=== PATIENT | female | born 1955 | race Caucasian/White ===

== ENCOUNTER 2017-10-23 08:19 | Outpatient (CLI) | payer BC, OTHER ==
--- NOTE | 2017-10-24 13:07 | Mammography Report ---
DIGITAL SCREENING MAMMOGRAM: 10/23/2017 CLINICAL INDICATION: A 61-year-old, for screening. COMPARISON: 06/2016, 06/2013, 06/2012, 06/2011, 05/2010. TECHNIQUE: Routine CC and MLO projections were obtained of the breasts. FINDINGS: Scattered fibroglandular tissue is present within the breasts. There are no dominant masses, suspicious microcalcifications, or secondary signs of malignancy. In comparison to the previous studies, there are no significant changes. ASSESSMENT: NO MAMMOGRAPHIC EVIDENCE OF MALIGNANCY. NO SIGNIFICANT INTERVAL CHANGES. RECOMMENDATION: Screening mammography is recommended annually. BIRADS category 1 - negative. STANDARD QUALIFYING STATEMENTS: 1. This examination was reviewed with the aid of Computed-Aided Detection (CAD). 2. A negative or benign imaging report should not delay biopsy if clinically suspicious findings are present. Consider surgical consultation if warranted. More than 5% of cancers are not identified by imaging. 3. Dense breasts may obscure an underlying neoplasm. TD: 10/24/2017 13:06
== END 2017-10-23 08:20 | disposition home or self-care (01) ==
LOC: DI.S 08:19
PROVIDERS: ATTEND Physician Assistant
DX: Z12.31 Encounter for screening mammogram for malignant neoplasm of breast (principal)
CPT/HCPCS: 77067

== ENCOUNTER 2019-02-08 14:09 | Outpatient (CLI) | payer BC ==
--- NOTE | 2019-02-09 09:03 | Mammography Report ---
Reason: ENCOUNTER FOR SCREENING MAMMOGRAM FOR MALIGNANT NE Procedure Date: 02/08/2019 Accession Number: [id number] / [id number] Procedure: JAG - Screening Mammo w/Jayson CPT Code: FULL RESULT: EXAM: Screening Mammo w/Jayson DATE: 02/08/2019 2:37 PM CLINICAL HISTORY: Screening encounter. History of early menses. TECHNIQUE: (B) - Bilateral CC, laterally exaggerated CC, MLO views were obtained. COMPARISON: 01/05/2018 through 10/20/2015. PARENCHYMAL PATTERN: (D) - The breast(s) demonstrate(s) heterogeneously dense fibroglandular parenchyma. FINDINGS: There are coarse typically benign calcifications. There are no suspicious masses, calcifications, or areas of distortion. IMPRESSION: Benign findings. BI-RADS category 2. RECOMMENDATION: (ANNUAL) - Recommend routine annual screening mammography. BI-RADS CATEGORY: (2) - Benign Findings. STANDARD QUALIFYING STATEMENTS: 1. This examination was not reviewed with the aid of Computer-Aided Detection (CAD). 2. A negative or benign imaging report should not preclude biopsy if clinically suspicious findings are present. 3. Dense breasts may obscure an underlying neoplasm. 4. This examination was reviewed with the aid of 3D breast imaging (tomosynthesis).
== END 2019-02-08 14:10 | disposition home or self-care (01) ==
LOC: DI 14:09
PROVIDERS: ATTEND Internal Medicine
DX: Z12.31 Encounter for screening mammogram for malignant neoplasm of breast (principal)
CPT/HCPCS: 77063; 77067

== ENCOUNTER 2020-08-28 19:23 | Outpatient (CLI) | payer OTHER ==
[2020-08-28] MEDS ORDERED: IOVERSOL 320 100 ML VIAL IVP ONE (21:44)
== END 2020-08-28 19:24 | disposition critical access hospital (66) ==
LOC: EMS 19:23
PROVIDERS: ATTEND Surgery
DX: R55 Syncope and collapse (principal)
CPT/HCPCS: A0425; A0429; Q9967

== ENCOUNTER 2020-08-28 19:48 | Observation (INO) | payer BC, OTHER ==
--- NOTE | 2020-08-28 20:29 | ED Physician Documentation ---
PD HPI SYNCOPE - Stated complaint Stated Complaint: LOC - Chief complaint Chief Complaint: Neuro - History obtained from History obtained from: Patient, EMS - Additional information Additional information: This is a 64-year-old woman with history of hypertension on losartan, chlorthalidone, metoprolol. Also on a statin for cholesterol, baby aspirin a day and multiple supplements and vitamins. She was in her usual state of health tonight, she had not eaten much and she had had a couple of glasses of wine but admits she was not intoxicated. She was feeling fine and went into take a shower. Did not make it. Without premonition had syncope. Reportedly hit her head but does not remember any of it. Denies any current complaints. No headache, chest pain, neck pain, calf pain, pedal edema. No history of heart problems or syncope. Review of Systems Ten Systems: 10 systems reviewed and negative Constitutional: denies: Fever, Chills, Myalgias Nose: denies: Rhinorrhea / runny nose, Congestion Throat: denies: Sore throat Cardiac: denies: Chest pain / pressure, Palpitations Respiratory: denies: Dyspnea, Cough PD PAST MEDICAL HISTORY - Past Medical History Past Medical History: No - Past Surgical History Past Surgical History: No - Allergies Allergies/Adverse Reactions: Allergies Allergy/AdvReac Type Severity Reaction Status Date / Time Sulfa (Sulfonamide Allergy Unknown Verified 08/28/20 19:55 Antibiotics) - Social History Does the pt smoke?: No Smoking Status: Never smoker PD ED PE NORMAL - Vitals Vital signs reviewed: Yes - General General: Alert and oriented X 3, No acute distress - HEENT HEENT: PERRL, EOMI - Neck Neck: Supple, no meningeal sign, No bony TTP - Cardiac Cardiac: No murmur, Other (tachycardia) - Respiratory Respiratory: No respiratory distress, Clear bilaterally - Abdomen Abdomen: Soft, Non tender - Back Back: No CVA TTP, No spinal TTP - Derm Derm: Normal color, Warm and dry - Extremities Extremities: No edema, No calf tenderness / cord, Other (She has a little contusion on the dorsal mid right forearm without tenderness or limited range of motion) - Neuro Neuro: Alert and oriented X 3, No motor deficit, No sensory deficit, Normal speech - Psych Psych: Normal mood, Normal affect Results - Vitals Vitals: Vital Signs - 24 hr 0108/28/20 08/28/20 19:55 20:30 21:00 Temperature 36.7 C Heart Rate 118 H 110 H 103 H Respiratory 16 18 19 Rate Blood Pressure 119/77 100/80 119/87 H O2 Saturation 96 96 97 08/28/20 21:30 Temperature Heart Rate 120 H Respiratory 18 Rate Blood Pressure 119/87 H O2 Saturation 98 Oxygen O2 Source Room air - EKG (time done) 1952 Rate: Rate (enter#) (117) Rhythm: Sinus tachycardia [place]: Normal Intervals: Normal [place] QRS: Normal Ischemia: Q waves (inf, small) Computer interpretation: Agree with computer - Labs Labs: Laboratory Tests 08/28/20 08/28/20 08/28/20 20:40 20:40 20:40 WBC 20.3 H RBC 3.51 L Hgb 11.8 L Hct 34.0 L MCV 96.9 MCH 33.6 H MCHC 34.7 RDW 13.2 Plt Count 381 MPV 8.5 Neut # (Auto) 17.1 H Lymph # (Auto) 1.6 Amador # (Auto) 1.2 H Eos # (Auto) 0.0 Baso # (Auto) 0.1 Absolute Nucleated RBC 0.00 Nucleated RBC % 0.0 Manual Slide Review Indicated Platelet Estimate NORMAL (130-450,000) Platelet Morphology NORMAL APPEARANCE RBC Morph Micro Appear NORMAL APPEARANCE D-Dimer Sodium 123 L Potassium 3.0 L Chloride 80 L* Carbon Dioxide 25 Anion Gap 18.0 H BUN 14 Creatinine 0.8 Estimated GFR (MDRD) 73 L Glucose 117 H Calcium 9.6 Total Bilirubin 0.6 AST 107 H ALT 59 Alkaline Phosphatase 150 H Troponin I High Sens 12.3 B-Natriuretic Peptide Total Protein 7.3 Albumin 3.7 Globulin 3.6 Albumin/Globulin Ratio 1.0 Lipase 37 08/28/20 08/28/20 20:40 20:40 WBC RBC Hgb Hct MCV MCH MCHC RDW Plt Count MPV Neut # (Auto) Lymph # (Auto) Amador # (Auto) Eos # (Auto) Baso # (Auto) Absolute Nucleated RBC Nucleated RBC % Manual Slide Review Platelet Estimate Platelet Morphology RBC Morph Micro Appear D-Dimer 669.5 H Sodium Potassium Chloride Carbon Dioxide Anion Gap BUN Creatinine Estimated GFR (MDRD) Glucose Calcium Total Bilirubin AST ALT Alkaline Phosphatase Troponin I High Sens B-Natriuretic Peptide 73 Total Protein Albumin Globulin Albumin/Globulin Ratio Lipase PD MEDICAL DECISION MAKING - ED course ED course: 64-year-old woman with syncope without premonition. I also obtained further history from the by phone. He agrees there was no indication that she was going to syncopized and went down quite hard but without apparent injury but he thinks she may not have been breathing for as long as 3 to 4 minutes. No CPR was done. On arrival here the patient's is dismissive of her symptoms. She has a basically normal medical examination other than persistent tachycardia. Work- up demonstrates leukocytosis without fever or clinical focus of infection. No urinary complaints or abdominal symptoms. No headache or neck stiffness. Chest x-ray is clear. D-dimer is elevated, she has pretty significant hyponatremia. She thinks her last labs were maybe a year ago, routine labs for her blood pressure medicines. She never been told about the sodium being low or anything along those lines. This may all be from the chlorthalidone, but given the profundity Of the electrolyte abnormalities probably deserves inpatient management. Again the patient was dismissive but at least agreed to stay for a CT angiogram of the chest to evaluate for the elevated D-dimer. No large PE on CT, pending final read. Spoke with Dr. Herrera for observation at 10:25 PM. Departure - Departure Disposition: ED Place in Observation Clinical Impression: Hyponatremia Syncope Qualifiers: Syncope type: unspecified Qualified Code(s): R55 - Syncope and collapse Leukocytosis Qualifiers: Leukocytosis type: unspecified Qualified Code(s): D72.829 - Elevated white blood cell count, unspecified Condition: Fair
[2020-08-28 20:47] LABS: BASOPHILS # (AUTO) 0.1 10^3/uL (0.0-0.1); BASOPHILS % (AUTO) 0.5 %; HGB - HEMOGLOBIN 11.8 g/dL (12.0-16.0); MEAN CORPUSCULAR HEMOGLOBIN 33.6 pg (27.0-31.0); MEAN CORPUSCULAR HGB CONC 34.7 g/dL (32.0-36.0); MEAN CORPUSCULAR VOLUME 96.9 fL (81.0-99.0); RED BLOOD COUNT 3.51 10^6/uL (4.20-5.40)
[2020-08-28 20:50] LABS: LYMPHOCYTES # (AUTO) 1.6 10^3/uL (1.5-3.5); LYMPHOCYTES % (AUTO) 7.8 %; MEAN PLATELET VOLUME 8.5 fL (7.9-10.8); MONOCYTES # (AUTO) 1.2 10^3/uL (0.0-1.0); NEUTROPHILS # (AUTO) 17.1 10^3/uL (1.5-6.6); NEUTROPHILS % (AUTO) 84.4 %; PLT - PLATELET COUNT 381 10^3/uL (130-450); RED CELL DISTRIBUTION WIDTH 13.2 % (12.0-15.0); WHITE BLOOD COUNT 20.3 x10^3/uL (4.8-10.8)
[2020-08-28 21:02] LABS: ALBUMIN 3.7 g/dL (3.2-5.5); BILIRUBIN,TOTAL 0.6 mg/dL (0.2-1.0); CALCIUM 9.6 mg/dL (8.5-10.3); CREATININE 0.8 mg/dL (0.4-1.0); TOTAL PROTEIN 7.3 g/dL (6.7-8.2)
[2020-08-28 21:11] LABS: PLATELET ESTIMATE, MANUAL NORMAL (130-450,000) (NORMAL); PLATELET MORPHOLOGY NORMAL APPEARANCE (NORMAL); RBC MORPHOLOGY (MULTIPLE) NORMAL APPEARANCE (NORMAL)
--- NOTE | 2020-08-28 21:21 | XRAY Report ---
PROCEDURE: Chest 1 View X-Ray INDICATIONS: Chest Pain TECHNIQUE: One view of the chest was acquired. COMPARISON: 07/22/2016. FINDINGS: Surgical changes and devices: None. Lungs and pleura: No pleural effusions or pneumothorax. Lungs are clear. Mediastinum: Mediastinal contours appear normal. Heart size is normal. Bones and chest wall: No suspicious bony lesions. Overlying soft tissues appear unremarkable. IMPRESSION: 1. No acute cardiopulmonary disease. Reviewed by: Willis Worthington MD on 08/28/2020 9:20 PM [facility] Approved by: Willis Worthington MD on 08/28/2020 9:20 PM [facility] Station ID: [id number]
[2020-08-28] MEDS ORDERED: SODIUM CHLORIDE 0.9% 1,000 ML IV STA (21:26)
[2020-08-28] MEDS ORDERED: POTASSIUM CHLOR 10 MEQ/100 ML 10 MEQ/100 ML BAG IV STA (21:27)
[2020-08-28] MEDS ORDERED: IOVERSOL 320 100 ML VIAL IVP ONE (22:13)
[2020-08-28] MEDS ORDERED: SODIUM CHLORIDE FLUSH 0.9% 10 ML SYRINGE IVP PRN (22:24)
--- NOTE | 2020-08-28 22:33 | HISTORY & PHYSICAL EXAMINATION ---
Chief Complaint - Chief Complaint Chief Complaint: syncope History of Present Illness - Admitted From Admitted From:: [facility] ED - History Obtained From Records Reviewed: yes History obtained from: patient - History of Present Illness HPI Comment/Other: Patient is a 64-year-old female with history of hypertension, hyperlipidemia, GERD and anemia who presented to the ED after a syncopal episode this evening. She was getting ready to go take a shower when she passed out. She is not certain what transpired during the event. She complains of right shoulder pain and has some bruising on her right forearm. She denied feeling dizzy prior to the episode and she denies any previous occurrence. She also denies any other cardiac history other than her high blood pressure. In the ED she was found to be tachycardic with a heart rate ranging between 10 5-1 20. She also had a white count of 20. Her sodium level was 123 and chloride of 80. She reports that she has not really had any significant oral intake today because of upset stomach. Her orthostatics were positive. As a result of her presentation she was admitted for further work-up. At bedside she is resting comfortably she denies chest pain, dyspnea, abdominal pain, nausea, vomiting, fever or chills. 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 - Family & Social History Family History Comment/Other: Patient denied any significant family history Social History Notes: She lives with her spouse. She does not smoke or use recreational substances. She drinks about 2 glasses of wine daily. - POLST Patient has POLST: No POLST Status: Full Code Meds/Allgy - Allergies Allergies/Adverse Reactions: Allergies Allergy/AdvReac Type Severity Reaction Status Date / Time Sulfa (Sulfonamide Allergy Unknown Verified 08/28/20 19:55 Antibiotics) Review of Systems - Constitutional Constitutional: denies: Fatigue, Fever, Chills, Weakness - Eyes Eyes: denies: Pain, Dipolpia - Ears, Nose & Throat Ears, Nose & Throat: denies: Ear pain, Sore throat, Hoarseness - Cardiovascular Cariovascular: reports: Syncope. denies: Irregular heart rate, Palpitations, Chest pain, Edema, Lightheadedness, Exertional dyspnea, Decr. exercise tolerance - Respiratory Respiratory: denies: Cough, Sputum production, Wheezing, Snoring, SOB at rest, SOB with exertion - Gastrointestinal Gastrointestinal: reports: Reflux/heartburn. denies: Abdominal pain, Abdominal distention, Constipation, Diarrhea, Nausea, Vomiting - Genitourinary Genitourinary: denies: Dysuria, Frequency, Urgency, Hematuria - Musculoskeletal Musculoskeletal: denies: Muscle pain, Back pain, Muscle aches, Stiffness - Integumentary Integumentary: denies: Rash, Pruritis, Lesions, Dryness - Neurological Neurological: denies: General weakness, Focal weakness, Headache, Dizziness - Psychiatric Psychiatric: denies: Depression, Anxiety - Endocrine Endocrine: denies: Polyuria, Polydypsia - Hematologic/Lymphatic Hematologic/Lymphatic: reports: Anemia, Bruising. denies: Petechiae Prior Level of Functionality: She is independent of activities of daily living Exam - Vital Signs Vital Signs: Vital Signs x48h Temp Pulse Resp BP Pulse Ox 08/28/20 21:30 120 H 18 119/87 H 98 08/28/20 21:00 103 H 19 119/87 H 97 08/28/20 20:30 110 H 18 100/80 96 08/28/20 19:55 36.7 C 118 H 16 119/77 96 - Physical Exam General Appearance: positive: No acute distress, Alert, Anxious Eyes Bilateral: positive: PERRL, EOMI ENT: positive: Dry mucous membranes Neck: positive: No JVD, Trachea midline Respiratory: positive: Chest non-tender, No respiratory distress, Breath sounds nml. negative: Wheezes, Rales, Rhonchi Cardiovascular: positive: No murmur, Tachycardia Abdomen: positive: Non-tender, No organomegaly, Nml bowel sounds, No distention. negative: Guarding, Rebound Back: positive: Nml inspection Skin: positive: Color nml, No rash, Warm, Dry Extremities: positive: Non-tender, Full ROM, Nml appearance, No pedal edema Neurologic/Psychiatric: positive: Oriented x3, Mood/affect nml Conclusion/Plan - Problem List (1) Syncope Conclusion/Plan: Suspect secondary to dehydration. Patient's orthostatics were positive. Patient is receiving IV hydration with normal saline at 150 mils per hour. 2D echo ordered for the morning. We will monitor patient on telemetry. Also hold patient's medications which consist of metoprolol, chlorthalidone and losartan. Qualifiers: Syncope type: unspecified Qualified Code(s): R55 - Syncope and collapse (2) Hyponatremia Conclusion/Plan: Likely secondary to dehydration. Patient receiving IV hydration with normal saline at 150 mils per hour. Will recheck labs in the a.m. (3) Leukocytosis Conclusion/Plan: Reactive versus infectious. We will monitor and repeat labs in the morning. If patient spikes a fever, will obtain blood cultures. UA and chest x-ray were unremarkable. There is no sign of erythema on examination of skin. Qualifiers: Leukocytosis type: unspecified Qualified Code(s): D72.829 - Elevated white blood cell count, unspecified (4) Tachycardia Conclusion/Plan: Sinus. Likely secondary to dehydration. Expect improvement with IV hydration. CT scan was negative for PE. We will check TSH level. (5) Hyperlipidemia Conclusion/Plan: Will resume patient's medication once verified. (6) GERD (gastroesophageal reflux disease) Conclusion/Plan: Protonix 40 mg p.o. q.d.AC ordered. We will also order Tums as needed. - Lab Results Fish Bones: 08/28/20 20:40 08/28/20 20:40 Core Measures - Anticipated LOS I expect patient to be DC'd or transferred within 96 hours.: Yes - DVT/VTE - Prophylaxis VTE/DVT Device ordered at admit?: Yes VTE/DVT Prophylaxis med ordered at admit?: Yes
[2020-08-28 23:07] LABS: BILIRUBIN,URINE NEGATIVE (NEGATIVE); CLARITY,URINE CLEAR (CLEAR); GLUCOSE, URINE (UA) NEGATIVE (NEGATIVE); KETONES,URINE (UA) NEGATIVE (NEGATIVE); LEUKOCYTE ESTERASE, URINE NEGATIVE (NEGATIVE); NITRITE,URINE NEGATIVE (NEGATIVE); OCCULT BLOOD,URINE NEGATIVE (NEGATIVE); PROTEIN,URINE NEGATIVE (NEGATIVE); UROBILINOGEN,URINE 0.2 (NORMAL) E.U./dL (NORMAL)
[2020-08-28 23:50] LABS: C. PNEUMONIAE- RESP PCR PANEL NOT DETECTED
[2020-08-29] MEDS: ACETAMINOPHEN 325 MG TABLET PO PRN ×3 (00:01→11:15)
[2020-08-29] MEDS ORDERED: CALCIUM CARBONATE CHEW 500 MG TABLET PO PRN (01:03)
[2020-08-29] MEDS: SODIUM CHLORIDE FLUSH 0.9% 10 ML SYRINGE IVP SCH ×2 (01:50→08:16)
[2020-08-29] MEDS: SODIUM CHLORIDE 0.9% 1,000 ML IV SCH ×3 (04:38→11:15)
[2020-08-29 04:46] VITALS: BP 129/77
[2020-08-29 05:49] LABS: BASOPHILS % (AUTO) 0.3 %; EOSINOPHILS % (AUTO) 0.2 %; HGB - HEMOGLOBIN 10.6 g/dL (12.0-16.0); LYMPHOCYTES # (AUTO) 1.6 10^3/uL (1.5-3.5); LYMPHOCYTES % (AUTO) 10.3 %; MEAN CORPUSCULAR HEMOGLOBIN 33.9 pg (27.0-31.0); MEAN CORPUSCULAR HGB CONC 34.9 g/dL (32.0-36.0); MEAN CORPUSCULAR VOLUME 97.1 fL (81.0-99.0); MEAN PLATELET VOLUME 8.4 fL (7.9-10.8); MONOCYTES # (AUTO) 1.3 10^3/uL (0.0-1.0); MONOCYTES % (AUTO) 8.4 %; NEUTROPHILS # (AUTO) 12.2 10^3/uL (1.5-6.6); NEUTROPHILS % (AUTO) 80.1 %; PLT - PLATELET COUNT 288 10^3/uL (130-450); RED BLOOD COUNT 3.13 10^6/uL (4.20-5.40); RED CELL DISTRIBUTION WIDTH 13.2 % (12.0-15.0); WHITE BLOOD COUNT 15.2 x10^3/uL (4.8-10.8)
[2020-08-29 05:58] LABS: CALCIUM 9.2 mg/dL (8.5-10.3); CREATININE 0.9 mg/dL (0.4-1.0)
[2020-08-29] MEDS ORDERED: PANTOPRAZOLE 40 MG TABLET PO SCH (07:00)
--- NOTE | 2020-08-29 08:43 | CT Report ---
PROCEDURE: ANGIO CHEST WITH INDICATIONS: syncope, high dimer CONTRAST: IV CONTRAST: Optiray 320 ml: 80 PO CONTRAST: *NO PO CONTRAST TECHNIQUE: After the administration of intravenous contrast, 2 mm thick sections acquired from the pulmonary api prudencio to the posterior costophrenic angles. 3-dimensional maximum intensity projection (MIP) coronal a nd sagittal reformats were then acquired through the thorax. For radiation dose reduction, the follow ing was used: automated exposure control, adjustment of mA and/or kV according to patient size. COMPARISON: Chest x-ray one view, 08/28/2020. FINDINGS: Image quality: Respiratory motion artifact are present. Pulmonary arteries: Pulmonary arteries are normal in size, and demonstrate no intraluminal filling d efects to suggest central pulmonary embolism. Lungs and pleura: There are respiratory emotions. Lungs are clear. No pleural effusions or pneumoth orax. Central and peripheral airways are patent. Mediastinum: Heart size is normal, without pericardial effusion. No mediastinal or hilar adenopathy . Thoracic aorta is normal in caliber and enhancement. Esophagus is normal in caliber. There is a s mall hiatal hernia. Mild concentric thickening at the GE junction. Bones and chest wall: No suspicious bony lesions. Ribs and thoracic spine appear intact throughout. There is a 7 mm thyroid low density nodule in the left thyroid lobe. No axillary or supraclavicula r adenopathy. Abdomen: Hepatic steatosis. Visualized upper abdominal solid organs appear normal in the early arter ial phase of enhancement. IMPRESSION: 1. No evidence for central pulmonary embolism. 2. Small hiatal hernia and consistent thickening of GE junction. If clinically indicated, esophagram may be obtained for further evaluation. 3. A 7 mm low-density nodule in the left thyroid lobe. Recommend thyroid ultrasound for follow-up monika luation. 4. Hepatic steatosis. No significant discrepancy with the preliminary interpretation. Reviewed by: Ruth Heath MD on 08/29/2020 8:42 AM PST Approved by: Ruth Heath MD on 08/29/2020 8:42 AM PST Station ID: [id number]
[2020-08-29] MEDS ORDERED: LORazepam 2 MG/ML VIAL IVP PRN (11:44)
--- NOTE | 2020-08-29 14:49 | Discharge Plan ---
Discharge Plan Problem Reviewed?: Yes Disposition: Home, Self Care Condition: Fair Diet: Regular Activity Restrictions: Activity as Tolerated Shower Restrictions: No Driving Restrictions: No Instruction Topics: Syncope Tx Prevent Health Concerns: You came to the hospital after passing out at home. You had a normal day. No change in your health status and had gotten up to walk to the shower. You had no warning. And you suddenly went unconscious. We worry about heart attack, stroke, heart rhythm problems, low blood pressure, anemia or infection when someone does this. We did blood test to make sure you were not having a heart attack and you did not have an infection. You were not having a stroke. We did an ultrasound of your heart and the muscle, and valves of your heart were working completely normally. The only thing we found was electrolyte disturbance with a low sodium and low potassium. Sometimes that can induce a h eart rhythm problem. While you were here, our telemetry monitoring did not show any heart rhythm problems. We also checked for a blood clot to the lungs. CAT scan of the chest with a dye study looking at the arteries of your lungs were completely normal. We found an incidental finding of a small thyroid nodule in the left part of your thyroid. And a little bit of fatty liver. Plan of Treatment: 1. See your primary care provider Vanessa Borden in the next 2 weeks. 2. Stop your chlorthalidone since it can cause electrolyte abnormalities 3. If you continue to have an episode of passing out, Dr. Borden may need to do something called an event monitor or Holter monitor to look at your heart rhythm analysis. Care Goals: Did not pass out again. And not scary her poor . Assessment: Patient understands care goals. was in the room and we discussed these goals. She will follow through with seeing her PCP. No Smoking: If you smoke, Please STOP! Call for help. Follow-up with: VANESSA BORDEN MD [Physician No Access] -
--- NOTE | 2020-08-29 14:58 | DISCHARGE SUMMARY ---
"Discharge Summary Admit Date: 08/28/20 Discharge Date: 08/29/20 Discharging Provider: Ambreen Aldana MD Primary Care Provider: JENNIFER Hoskins Code Status: Attempt Resuscitation Condition at Discharge: Fair Discharge Disposition: 01 Home, Self Care - DIAGNOSES Discharge Diagnoses with Status of Each Condition: 1. Syncope 2. Electrolyte disorder with hyponatremia and hypokalemia 3. Orthostatic blood pressure, resolved 4. Sinus tachycardia 5. Leukocytosis unknown etiology 6. Hyperlipidemia 7. Gastroesophageal reflux disease 8. Abnormal CT scan of GE junction 9. Thyroid nodule 10. Hypertension - HPI History of Present Illness: Patient is a 64-year-old female with history of hypertension, hyperlipidemia, GERD and anemia who presented to the ED after a syncopal episode this evening. She was getting ready to go take a shower when she passed out. She is not certain what transpired during the event. She is very clear in stating that there was no antecedent warning. She did not have chest pain, palpitations, diaphoresis. She did not feel faint. She had no change in her medications. Kamar shoemaker checks her blood pressure on a daily basis and is in the 120s to 130 systolic. She complains of right shoulder pain and has some bruising on her right forearm. She denied feeling dizzy prior to the episode and she denies any previous occurrence. She also denies any other cardiac history other than her high blood pressure. In the ED she was found to be tachycardic with a heart rate ranging between 10 5-1 20. She also had a white count of 20. Her sodium level was 123 and chloride of 80. She reports that she has not really had any significant oral intake today because of upset stomach. She had some toast and some cheese. She had a couple of bites here and there but that was it. She cannot say why her stomach was upset. Her orthostatics were positive. As a result of her presentation she was admitted for further work-up. At bedside she is resting comfortably she denies chest pain, dyspnea, abdominal pain, nausea, vomiting, fever or chills. 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 - CONSULTS | PROCEDURES Procedures: 1. Chest x-ray without acute cardiopulmonary process. 2. D-dimer was over [address] pulmonary angiogram showed no evidence of pulmonary embolism. Small hiatal hernia and consistent thickening of the GE junction. An esophagram is clinically indicated for this finding. 3. A 7 mm low-density nodule in the left thyroid. 4. Hepatic steatosis. 5. Echocardiogram shows no significant chamber, valve, heart size abnormalities. However this is a preliminary finding. Final report needs to be reviewed by PCP. 6. Telemetry strips all showed normal sinus rhythm, occasional sinus tachycard ia. - HOSPITAL COURSE Hospital Course: She was placed in observation and on telemetry. On telemetry there were no arrhythmias other than mild sinus tachycardia. Orthostatic blood pressures were done after initial treatment was completed. She received fluid boluses in the emergency room and supplementation for her potassium. Blood pressure on the day of discharge supine was 139/84. Sitting 149/88. Standing 142/87. We think that her electrolyte abnormality is from her chlorthalidone and have recommended discontinuing the chlorthalidone. She will need outpatient follow-up for her blood pressure and medication adjustment. We would also recommend a repeat BMP. Echocardiogram, CT pulmonary angiogram, troponins, thyroid were all normal. If she continues to have syncope, would recommend an event monitor or Holter monitor. Her syncope appeared to be without any antecedent warning. We did note that she had an elevated white cell count on admission of 20.3. It was 15.2 by the time she was discharged. She does not have any review of systems positive for B symptoms. We think she may have simple demargination. We would asked that she have a repeat CBC with her PCP to make sure this is resolved. She also has mild anemia. By the time of discharge sodium went from 123->129. Potassium went from 3.0->3.5. Chloride was 80 and went to 89. Mild hyperglycemia at 118 fasting. At discharge temperature was 36.9. Pulse was 118 with last recorded pulse. However when I checked her pulse, she was comfortable, talking to her , and was in the 80s. Blood pressure was 139/84. Respirations 16 and 99% on room air. She is a well-nourished well-developed pleasant female who is 5 feet 5 inches tall weighs 70 kg. Speech is lucid, coherent. Neck is supple. Lungs are clear to auscultation and percussion and she does not have increased respiratory effort. PMI is normally placed with a regular rate and rhythm. Abdomen is soft, nontender, normal bowel sounds. Extremities without edema. She is discharged in stable condition. Instructions are to: 1. See PCP in follow-up in the next 1 to 2 weeks 2. Stop chlorthalidone and get blood pressure checked. 3. Check BMP and CBC to make sure K, Na and WBC have normalized. 4. Get Holter or event monitor if she has another episode of syncope - ALLERGIES Allergies/Adverse Reactions: Allergies Allergy/AdvReac Type Severity Reaction Status Date / Time Sulfa (Sulfonamide Allergy Unknown Verified 08/28/20 19:55 Antibiotics) - MEDICATIONS Home Medications: Ambulatory Orders Medication Instructions Recorded Confirmed Losartan Potassium 25 mg PO DAILY 08/29/20 08/29/20 Metoprolol Succinate [Toprol Xl] 100 mg PO DAILY 08/29/20 08/29/20 Rosuvastatin Calcium [Crestor] 10 mg PO DAILY 08/29/20 08/29/20 - LABS Result Diagrams: 08/29/20 05:32 08/29/20 05:32"
== END 2020-08-29 15:50 | disposition home or self-care (01) ==
LOC: EDUNIT# → ED 19:48 → MS2 22:24
PROVIDERS: ADMIT Internal Medicine; ATTEND Specialist
DX: R55 Syncope and collapse (principal); E87.1 Hypo-osmolality and hyponatremia; E87.6 Hypokalemia; E86.0 Dehydration; D72.829 Elevated white blood cell count, unspecified; E04.1 Nontoxic single thyroid nodule; I10 Essential (primary) hypertension; R00.0 Tachycardia, unspecified; R73.9 Hyperglycemia, unspecified; R79.89 Other specified abnormal findings of blood chemistry; S50.11XA Contusion of right forearm, initial encounter; W18.30XA Fall on same level, unspecified, initial encounter; Y92.009 Unspecified place in unspecified non-institutional (private) residence as the place of occurrence of the external cause; E78.5 Hyperlipidemia, unspecified; K44.9 Diaphragmatic hernia without obstruction or gangrene; K76.0 Fatty (change of) liver, not elsewhere classified; D64.9 Anemia, unspecified; K21.9 Gastro-esophageal reflux disease without esophagitis; R94.8 Abnormal results of function studies of other organs and systems; Z79.82 Long term (current) use of aspirin; Z79.899 Other long term (current) drug therapy
CPT/HCPCS: 0202U; 36415; 71045; 71275; 80048; 80053; 81003; 83690; 83880; 84443; 84484; 85025; 85379; 93005; 93306; 96361; 96365; 99285; A9270; G0378; Q9967; 81001; 87086

== ENCOUNTER 2021-02-13 15:53 | Inpatient (IN) | payer OTHER ==
--- NOTE | 2021-02-13 16:40 | ED Physician Documentation ---
History of Present Illness - Stated complaint Stated Complaint: CONFUSION,UNSTEADY,SLURRED SPEACH - Chief complaint Chief Complaint: General - Additonal information Additional information: 65-year-old female who has a history of hypertension, hyperlipidemia, GERD and anemia, comes to the emergency department for evaluation of worsening confusion. She reports that she retired from her job of 36 years in September 2020. Since then she feels that she is having difficulty completing tasks at home. She feels that she has been confused and that is making her worry. Her reports that last night she had difficulty filling out a check and doing simple math. pt is reporting to me that her feet have been hurting a lot more than normal, which she attributes to her gout She does have a history of alcohol abuse and typically will drink a bottle of wine a night. She denies any falls or trauma. Chart review shows that she has previous diagnoses that include hyponatremia as well as tachycardia. Review of Systems Constitutional: denies: Fever, Chills Eyes: denies: Loss of vision Ears: reports: Reviewed and negative Nose: reports: Reviewed and negative Throat: reports: Reviewed and negative Cardiac: reports: Reviewed and negative Respiratory: reports: Reviewed and negative GI: reports: Reviewed and negative : reports: Reviewed and negative Skin: reports: Reviewed and negative Musculoskeletal: reports: Reviewed and negative Neurologic: reports: Confused. 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 HEENT: Tonsil/Adenoidectomy - Present Medications Home Medications: Ambulatory Orders Medication Instructions Recorded Confirmed Losartan Potassium 25 mg PO DAILY 08/29/20 02/13/21 Metoprolol Succinate [Toprol Xl] 100 mg PO DAILY 08/29/20 02/13/21 Rosuvastatin Calcium [Crestor] 10 mg PO DAILY 08/29/20 02/13/21 Aspirin [Aspirin EC] 81 mg PO DAILY 02/13/21 02/13/21 Ferrous Sulfate 325 mg PO DAILY 02/13/21 02/13/21 Indomethacin [Indocin] 50 mg PO DAILY PRN 02/13/21 02/13/21 Multivitamin [Theragran] 1 each PO DAILY 02/13/21 02/13/21 Rabeprazole Sodium [Aciphex] 20 mg PO DAILY 02/13/21 02/13/21 - Allergies Allergies/Adverse Reactions: Allergies Allergy/AdvReac Type Severity Reaction Status Date / Time Sulfa (Sulfonamide Allergy Unknown Verified 08/28/20 19:55 Antibiotics) - Social History Does the pt smoke?: No Smoking Status: Former smoker - POLST Patient has POLST: No POLST Status: Full Code PD ED PE EXPANDED - General General: Alert, No acute distress, Well developed/nourished - Cardiac Cardiac: Tachy, Radial strong equal, Cap refill < 2 sec, Prolonged cap refill. No: Murmur Present - Respiratory Respiratory: Clear to ausultation chirag. No: Distress, Labored - Abdomen Abdomen: Normal Bowel sounds, Hepatomegaly. No: Distended, Tender to palpation - Derm Derm: Normal color, Warm and dry. No: Jaundiced - Extremities Extremities: Normal. No: Deformity, Tenderness - Neuro Neuro: Alert and Oriented X 3, CNII-XII intact, Normal gait, Normal finger nose, Normal speech, Other (NIHSS of 0) - GCS Eye Opening: Spontaneous Motor: Obeys Commands Verbal: Oriented Total: 15 Results - Vitals Vitals: Vital Signs - 24 hr 02/13/21 15:59 Temperature 36.4 C L Heart Rate 119 H Respiratory 18 Rate Blood Pressure 118/85 H O2 Saturation 97 Oxygen O2 Source Room air - EKG (time done) 1640 Rate: Rate (enter#) (105) Rhythm: Sinus tachycardia Sullivan: Normal QRS: Poor R wave progression Ischemia: Q waves (inferior) Compare to prior EKG: Unchanged from prior EKG Computer interpretation: Agree with computer - Labs Labs: Laboratory Tests 02/13/21 02/13/21 02/13/21 16:45 16:45 16:52 WBC 17.0 H RBC 3.14 L Hgb 11.3 L Hct 32.1 L MCV 102.2 H MCH 36.0 H MCHC 35.2 RDW 12.2 Plt Count 327 MPV 10.0 Neut # (Auto) 13.6 H Lymph # (Auto) 1.7 Bureau # (Auto) 1.5 H Eos # (Auto) 0.1 Baso # (Auto) 0.1 Absolute Nucleated RBC 0.00 Nucleated RBC % 0.0 Sodium 128 L Potassium 3.3 L Chloride 84 L Carbon Dioxide 34 H Anion Gap 10.0 BUN 28 H Creatinine 2.5 H Estimated GFR (MDRD) 19 L Glucose 113 H Calcium 16.2 H* Phosphorus 2.6 Magnesium 1.4 L Total Bilirubin 1.1 H AST 74 H ALT 58 Alkaline Phosphatase 203 H Troponin I High Sens 31.6 H* Total Protein 7.6 Albumin 3.9 Globulin 3.7 Albumin/Globulin Ratio 1.1 Lipase 320 H Urine Color Urine Clarity Urine pH Ur Specific Fleming Urine Protein Urine Glucose (UA) Urine Ketones Urine Occult Blood Urine Nitrite Urine Bilirubin Urine Urobilinogen Ur Leukocyte Esterase Ur Microscopic Review Urine Culture Comments Urine Opiates Screen Ur Oxycodone Screen Urine Methadone Screen Ur Propoxyphene Screen Ur Barbiturates Screen Ur Tricyclics Screen Ur Phencyclidine Scrn Ur Amphetamine Screen U Methamphetamines Scrn U Benzodiazepines Scrn Urine Cocaine Screen U Cannabinoids Screen 02/13/21 18:00 WBC RBC Hgb Hct MCV MCH MCHC RDW Plt Count MPV Neut # (Auto) Lymph # (Auto) Bureau # (Auto) Eos # (Auto) Baso # (Auto) Absolute Nucleated RBC Nucleated RBC % Sodium Potassium Chloride Carbon Dioxide Anion Gap BUN Creatinine Estimated GFR (MDRD) Glucose Calcium Phosphorus Magnesium Total Bilirubin AST ALT Alkaline Phosphatase Troponin I High Sens Total Protein Albumin Globulin Albumin/Globulin Ratio Lipase Urine Color YELLOW Urine Clarity CLEAR Urine pH 6.0 Ur Specific Fleming 1.015 Urine Protein NEGATIVE Urine Glucose (UA) NEGATIVE Urine Ketones NEGATIVE Urine Occult Blood NEGATIVE Urine Nitrite NEGATIVE Urine Bilirubin NEGATIVE Urine Urobilinogen 0.2 (NORMAL) Ur Leukocyte Esterase NEGATIVE Ur Microscopic Review NOT INDICATED Urine Culture Comments NOT INDICATED Urine Opiates Screen NEGATIVE Ur Oxycodone Screen NEGATIVE Urine Methadone Screen NEGATIVE Ur Propoxyphene Screen NEGATIVE Ur Barbiturates Screen NEGATIVE Ur Tricyclics Screen NEGATIVE Ur Phencyclidine Scrn NEGATIVE Ur Amphetamine Screen NEGATIVE U Methamphetamines Scrn NEGATIVE U Benzodiazepines Scrn NEGATIVE Urine Cocaine Screen NEGATIVE U Cannabinoids Screen NEGATIVE - Rads (name of study) ABD pelvis wo Radiology: Final report received (Minimal appearance of stranding surrounding the pancreatic head. Early pancreatitis cannot be excluded. Appendix is normal. T11 compression deformity of indeterminate age) ct head Radiology: Final report received (No acute findings) CXR Radiology: Final report received (No acute cardiopulmonary process), EMP read indepedently PD MEDICAL DECISION MAKING - ED course Complexity details: reviewed results, re-evaluated patient, d/w patient, d/w family, d/w independent marketing consultant (Kristopher) ED course: 65-year-old female is brought to the emergency department for evaluation of increasing bouts of confusion lack of mental clarity and increasing pain in her lower feet. This has been an intermittent problem since September but worse over the last few weeks. Screening labs show a moderate leukocytosis as well as a fairly significant hypercalcemia of 16. Her lipase is also noted to be mildly elevated at 320. An ionized calcium and a PTH are pending. CT of the abdomen does show some mild stranding around the pancreatic head. This could be early pancreatitis which given her history of alcohol abuse is entirely plausible. The hypercalcemia can also be seen in settings of excessive calcium intake and the patient does eat a lot of Tums as she reports chronic gastritis. Pt is noted to have mild ADE with elevated BUN/Cr. Likely pre-renal. Though pt had reported an unsteady gait and slured speech her gait was nromal on my exam, NIHSS was 0. Ct head without any acute focal findings. I have initially ordered 1 liter of IVF Normal saline as well as 20 mg of lasix for the hypercalcemia. Plan for admission discussed with pt and her This patient was discussed with day hospitalist Dr. Summers who agrees to admit the patient for further evaluation and treatment of her hypercalcemia Departure - Departure Disposition: 66 [facility] DC/Xfer Clinical Impression: Hypercalcemia, Confusion, Alcohol abuse, ADE (acute kidney injury) Condition: Stable Record reviewed to determine appropriate education?: Yes Discharge Date/Time: 02/13/21 19:25
[2021-02-13 16:55] LABS: BASOPHILS # (AUTO) 0.1 10^3/uL (0.0-0.1); BASOPHILS % (AUTO) 0.5 %; EOSINOPHILS # (AUTO) 0.1 10^3/uL (0.0-0.7); EOSINOPHILS % (AUTO) 0.6 %; HCT - HEMATOCRIT 32.1 % (37.0-47.0); HGB - HEMOGLOBIN 11.3 g/dL (12.0-16.0); LYMPHOCYTES # (AUTO) 1.7 10^3/uL (1.5-3.5); LYMPHOCYTES % (AUTO) 9.8 %; MEAN CORPUSCULAR HGB CONC 35.2 g/dL (32.0-36.0); MEAN CORPUSCULAR VOLUME 102.2 fL (81.0-99.0); MONOCYTES # (AUTO) 1.5 10^3/uL (0.0-1.0); MONOCYTES % (AUTO) 8.8 %; NEUTROPHILS # (AUTO) 13.6 10^3/uL (1.5-6.6); NEUTROPHILS % (AUTO) 79.7 %; PLT - PLATELET COUNT 327 10^3/uL (130-450); RED BLOOD COUNT 3.14 10^6/uL (4.20-5.40); RED CELL DISTRIBUTION WIDTH 12.2 % (12.0-15.0)
[2021-02-13 17:14] LABS: ALBUMIN 3.9 g/dL (3.2-5.5); ALBUMIN/GLOBULIN RATIO 1.1 (1.0-2.2); BILIRUBIN,TOTAL 1.1 mg/dL (0.2-1.0); CREATININE 2.5 mg/dL (0.4-1.0); MAGNESIUM 1.4 mg/dL (1.7-2.8); PHOSPHORUS 2.6 mg/dL (2.5-4.6); POTASSIUM 3.3 mmol/L (3.5-5.0); TOTAL PROTEIN 7.6 g/dL (6.7-8.2)
[2021-02-13 17:16] LABS: CALCIUM 16.2 mg/dL (8.5-10.3)
[2021-02-13] MEDS ORDERED: SODIUM CHLORIDE 0.9% 1,000 ML IV STA (17:25)
[2021-02-13] MEDS ORDERED: FUROSEMIDE 20 MG/2 ML VIAL IVP STA (17:31)
--- NOTE | 2021-02-13 18:05 | CT Report ---
PROCEDURE: HEAD WO INDICATIONS: confusion TECHNIQUE: Noncontrast 4.5 mm thick angled axial sections acquired from the foramen magnum to the vertex. For r adiation dose reduction, the following was used: automated exposure control, adjustment of mA and/or kV according to patient size. COMPARISON: None. FINDINGS: Image quality: Excellent. CSF spaces: Basal cisterns are patent. No extra-axial fluid collections. Ventricles are normal in size and shape. Brain: No midline shift. No intracranial masses or hemorrhage. Bernstein-white matter interface is norm al. Skull and face: Calvarium and visualized facial bones are intact, without suspicious lesions. Sinuses: Visualized sinuses and mastoids are clear. IMPRESSION: 1. No acute intracranial process. Reviewed by: Debbie Brink MD on 02/13/2021 6:03 PM PDT Approved by: Debbie Brink MD on 02/13/2021 6:03 PM PDT Station ID: [id number]
[2021-02-13 18:08] LABS: MUDS CUTOFF CONCENTRATIONS CUTOFF CONC BELOW:
--- NOTE | 2021-02-13 18:09 | CT Report ---
PROCEDURE: Abdomen/Pelvis WO INDICATIONS: elevated calcium TECHNIQUE: Noncontrast 5 mm thick sections acquired from the diaphragms to the symphysis. 5 mm coronal and sagi ttal reformats were then performed. For radiation dose reduction, the following was used: automated exposure control, adjustment of mA and/or kV according to patient size. COMPARISON: CT chest 08/28/2020 FINDINGS: Image quality: Excellent. ABDOMEN: Lung bases: Lung bases are clear. Heart size is normal. Trace anterior pericardial effusion measur ing 6 mm. Solid organs: Liver is markedly enlarged measuring 21.6 cm with diffuse fatty infiltration. The sple en is normal in size. Gallbladder is unremarkable Pancreas demonstrates questionable appearance of stranding adjacent to the pancreatic head. No adrenal nodules. Kidneys are normal in size, without h ydronephrosis or nephrolithiasis. Peritoneum and bowel: Unenhanced bowel loops demonstrate normal wall thickness and caliber. No free fluid or air. Appendix is normal. Nodes and vessels: No retroperitoneal or mesenteric adenopathy by size criteria. Aorta and inferior vena cava are normal in caliber. Miscellaneous: No ventral hernias. PELVIS: Genitourinary: Bladder wall thickness is normal. Miscellaneous: No inguinal hernias or adenopathy. Bones: No suspicious bony lesions. Compression deformity at T11. No priors are available for compari son. IMPRESSION: 1. Minimal appearance of stranding surrounding the pancreatic head. Early pancreatitis cannot be excl uded. 2. Appendix is normal. 3. T11 compression deformity of indeterminate age. Reviewed by: Debbie Brink MD on 02/13/2021 6:07 PM PDT Approved by: Debbie Brink MD on 02/13/2021 6:07 PM PDT Station ID: [id number]
[2021-02-13 18:10] LABS: BILIRUBIN,URINE NEGATIVE (NEGATIVE); GLUCOSE, URINE (UA) NEGATIVE (NEGATIVE); KETONES,URINE (UA) NEGATIVE (NEGATIVE); LEUKOCYTE ESTERASE, URINE NEGATIVE (NEGATIVE); NITRITE,URINE NEGATIVE (NEGATIVE); OCCULT BLOOD,URINE NEGATIVE (NEGATIVE); PROTEIN,URINE NEGATIVE (NEGATIVE); UROBILINOGEN,URINE 0.2 (NORMAL) E.U./dL (NORMAL)
[2021-02-13 18:14] LABS: CLARITY,URINE CLEAR (CLEAR)
[2021-02-13 18:20] LABS: COCAINE SCREEN URINE NEGATIVE (NEGATIVE); METHAMPHETAMINES SCREEN, URINE NEGATIVE (NEGATIVE); OPIATE SCREEN, URINE NEGATIVE (NEGATIVE); THC CANNABINOID SCREEN, URINE NEGATIVE (NEGATIVE)
[2021-02-13 18:21] LABS: AMPHETAMINE SCREEN,URINE NEGATIVE (NEGATIVE); BARBITURATE SCREEN,UR NEGATIVE (NEGATIVE); BENZODIAZEPINES SCREEN, URINE NEGATIVE (NEGATIVE); METHADONE SCREEN, URINE NEGATIVE (NEGATIVE); OXYCODONE SCREEN, URINE NEGATIVE (NEGATIVE); PROPOXYPHENE SCREEN, URINE NEGATIVE (NEGATIVE); TRICYCLIC ANTIDEPRESSANT,URINE NEGATIVE (NEGATIVE)
[2021-02-13] MEDS ORDERED: ACETAMINOPHEN 325 MG TABLET PO PRN (18:28)
[2021-02-13] MEDS ORDERED: HYDROcod/ACETAM 5/325 MG TABLET PO PRN (18:28)
[2021-02-13] MEDS ORDERED: ONDANSETRON ODT 4 MG TABLET TL PRN (18:28)
[2021-02-13] MEDS ORDERED: SODIUM CHLORIDE FLUSH 0.9% 10 ML SYRINGE IVP PRN (18:28)
[2021-02-13] MEDS ORDERED: PROCHLORPERAZINE 10 MG/2 ML VIAL IVP PRN (18:28)
--- NOTE | 2021-02-13 18:35 | XRAY Report ---
PROCEDURE: Chest 1 View X-Ray INDICATIONS: chest pain TECHNIQUE: One view of the chest was acquired. COMPARISON: 08/28/2020 FINDINGS: Surgical changes and devices: None. Lungs and pleura: No pleural effusions or pneumothorax. Lungs are clear. Mediastinum: Mediastinal contours appear normal. Heart size is normal. Bones and chest wall: No suspicious bony lesions. Overlying soft tissues appear unremarkable. IMPRESSION: No acute cardiopulmonary findings Reviewed by: Richard Hickman MD on 02/13/2021 5:33 PM AKDT Approved by: Richard Hickman MD on 02/13/2021 5:33 PM AKDT Station ID: [id number]
[2021-02-13] MEDS ORDERED: SODIUM CHLORIDE 0.9% 1,000 ML IV SCH (19:00)
--- NOTE | 2021-02-13 19:29 | HISTORY & PHYSICAL EXAMINATION ---
Chief Complaint - Chief Complaint Chief Complaint: Increasing confusion. History of Present Illness - Admitted From Admitted From:: Home - History Obtained From Records Reviewed: Yes History obtained from: Patient, Spouse, Daytime Hospitalist, EMR - History of Present Illness HPI Comment/Other: This is a 65-year-old female with past medical history significant for hypertension, GERD, iron deficiency anemia who presents today due to increasing confusion and difficulty walking at home. She states she has felt this way for the past few days and her , Paramjit, tells me that has been going on for about the past week. The patient retired in August of this year and the patient has been noted since September that she has been less active. He thought that she may have just been depressed given she was recently retired. He noticed that over the past week she has had increasing confusion and has become very unsteady when ambulating. She has been trying to hold onto [place] which is quite unusual for her. He noticed that last night she was trying to write a check and she had difficulty writing and the numbers were incorrect. Due to wha t happened yesterday evening, he brought her in for evaluation today. The patient does complain of the difficulty ambulating and confusion. She knows she is at the hospital and she knows the year, month. She denies any chest pain, difficulty breathing, nausea, vomiting. She reports no abdominal pain, dysuria, urgency, hematuria. She does have chronic dyspepsia and has been taking Tums for quite a few years now. She states she normally takes about 5 to 6 tablets a day but at times can take up to 10 tablets in a day. She is no longer taking chlorthalidone after it was discontinued in August when she was admitted for syncope from orthostasis and hyponatremia. She does report drinking a bottle and a half of wine a day for quite a few years now. She denies any history of alcohol withdrawal. She reports her last drink was Friday night. She denies any history of malignancy or family history. She reports having a colonoscopy and endoscopy a few years ago which did not reveal any mass. In the emergency department, she was noted to be afebrile. She was hypertensive with systolic in the 140s. She was also tachycardic with a heart rate in the 100s. She was not tachypneic and was saturating well on room air. Labs were significant for a white count of 17,000. Her sodium was 128, potassium 3.3, chloride 84, bicarbonate 34, BUN 28, and creatinine 2.5. Her calcium was 16.2. Total bilirubin was 1.1, AST 74, alkaline phosphatase 203. Her urinalysis was unremarkable. She underwent a CT of the abdomen and pelvis which was suggestive of possible mild pancreatitis and hepatomegaly. CT of the head was unremarkable. Given the above findings, medicine was consulted for admission. I did discuss goals of care with the patient and she would like to be a full code. History - Past Medical History Cardiovascular: reports: Hypertension, High cholesterol Respiratory: reports: Asthma Neuro: reports: None Endocrine/Autoimmune: reports: None GI: reports: GERD : reports: Nocturia Musculoskeletal: reports: Gout, Chronic back pain Derm: reports: None MRSA Hx?: No - Past Surgical History General: reports: Colonoscopy, EGD /ANIMAL NUTRITION CONSULTANT: reports: Hysterectomy HEENT: reports: Tonsil/Adenoidectomy - Family & Social History Family History Comment/Other: She reports no significant family history. Denies a family history of cardiac disease, cancer. Living arrangement: At home Living Situation: With spouse/s.o. Social History Notes: She lives at home with her , Paramjit. 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 She denies any smoking but does admit to drinking a bottle and a half of wine a day for quite a few years now. Denies any illicit drug use. - POLST Patient has POLST: No POLST Status: Full Code Meds/Allgy - Home Medications Home Medications: Ambulatory Orders Medication Instructions Recorded Confirmed Losartan Potassium 25 mg PO DAILY 08/29/20 02/13/21 Metoprolol Succinate [Toprol Xl] 100 mg PO DAILY 08/29/20 02/13/21 Rosuvastatin Calcium [Crestor] 10 mg PO DAILY 08/29/20 02/13/21 Aspirin [Aspirin EC] 81 mg PO DAILY 02/13/21 02/13/21 Ferrous Sulfate 325 mg PO DAILY 02/13/21 02/13/21 Indomethacin [Indocin] 50 mg PO DAILY PRN 02/13/21 02/13/21 Multivitamin [Theragran] 1 each PO DAILY 02/13/21 02/13/21 Rabeprazole Sodium [Aciphex] 20 mg PO DAILY 02/13/21 02/13/21 - Allergies Allergies/Adverse Reactions: Allergies Allergy/AdvReac Type Severity Reaction Status Date / Time Sulfa (Sulfonamide Allergy Unknown Verified 08/28/20 19:55 Antibiotics) Review of Systems - Constitutional Constitutional: reports: Fatigue. denies: Fever, Chills, Poor appetite - Ears, Nose & Throat Ears, Nose & Throat: reports: Postnasal drainage. denies: Nasal congestion - Cardiovascular Cariovascular: denies: Chest pain, Edema, Exertional dyspnea, Decr. exercise tolerance - Respiratory Respiratory: reports: Cough. denies: SOB at rest, SOB with exertion - Gastrointestinal Gastrointestinal: reports: Constipation, Change in bowel habits, Reflux/heartburn. denies: Abdominal pain, Diarrhea, Bloody stools, Nausea, Vomiting - Genitourinary Genitourinary: denies: Dysuria, Frequency, Urgency, Hematuria - Musculoskeletal Musculoskeletal: denies: Back pain, Limited range of motion, Muscle weakness - Integumentary Integumentary: denies: Rash - Neurological Neurological: reports: General weakness, Numbness. denies: Focal weakness - Endocrine Endocrine: denies: Polyuria, Polydypsia - Hematologic/Lymphatic Hematologic/Lymphatic: reports: Anemia. denies: Bleeding tendencies - All Other Systems All Other Systems: reports: Reviewed and negative Prior Level of Functionality: She is independent with her ADL's. Exam - Vital Signs Reviewed Vital Signs: Yes Vital Signs: Vital Signs x48h Temp Pulse Resp BP Pulse Ox 02/13/21 18:49 104 H 24 146/87 H 98 02/13/21 15:59 36.4 C L 119 H 18 118/85 H 97 - Physical Exam General Appearance: positive: No acute distress, Alert Eyes Bilateral: positive: Normal inspection, Conjunctivae nml ENT: positive: Dry mucous membranes. negative: No signs of dehydration Neck: positive: Nml inspection Respiratory: positive: No respiratory distress. negative: Wheezes, Rales Cardiovascular: positive: No murmur, Tachycardia. negative: Irregularly irregular, Bradycardia, Systolic murmur Abdomen: positive: Nml bowel sounds, Tenderness (Mild epigastric tenderness). negative: Non-tender, Guarding, Rebound Skin: positive: Warm, Dry Extremities: positive: No pedal edema Neurologic/Psychiatric: positive: Other (5 out of 5 motor strength in all 4 extremities. No focal deficits.). negative: Disoriented to person, Disoriented to place, Disoriented to time Conclusion/Plan - Problem List (1) Hypercalcemia Conclusion/Plan: She presents with a calcium greater than 16. I suspect this is likely due to the excess use of calcium carbonate for her GERD. 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 We will treat her with normal saline at 200 mL an hour. We will consider IV diuresis if she shows evidence of hypervolemia. Unfortunately we do not have calcitonin available. We will hold off on zoledronic acid given her acute kidney injury and no obvious evidence of malignancy. We will check PTH, PTH related protein, vitamin D. Daily labs. If her calcium remains significantly elevated and she does not respond to IV fluids then we would need to consider dialysis. (2) Confusion Conclusion/Plan: This likely secondary to her hypercalcemia. CT the head was unremarkable. There is currently no obvious evidence of infection. Given her history of alcohol use and mildly elevated LFTs, will check an ammonia level although low suspicion for hepatic encephalopathy. We will start her on IV fluids and treat her underlying hypercalcemia. I am hopeful that her mentation will improve as her calcium decreases. (3) Milk alkali syndrome Conclusion/Plan: There is concern for milk-alkali syndrome given the hypercalcemia, acute kidney injury and elevated bicarbonate. She has been taking a large amount of calcium carbonate at home. We will check a venous blood gas to evaluate her pH. We will hydrate her with normal saline. We will hold her home calcium carbonate. Daily labs. (4) Acute kidney injury Conclusion/Plan: This is likely prerenal injury from dehydration. Although nephrocalcinosis is on the differential, this is felt to be less likely at this time especially given the unremarkable imaging. Her creatinine is elevated at 2.5 and her baseline is 0.8. We will hydrate her with normal saline and hold her home losartan. Daily labs. (5) Pancreatitis Conclusion/Plan: There may be mild pancreatitis given her lipase is elevated greater than [address] was concerning for possible pancreatic stranding. She also has mild epigastric tenderness. This may be secondary to her alcohol use or the hypercalcemia. We will hydrate her and start her on a diet as tolerated. Trend Lipase and check amylase. (6) Hyponatremia Conclusion/Plan: Suspect this is likely hypovolemic hyponatremia. Her sodium is currently 128 and has been low earlier this year in the low 120s. We will hydrate her with normal saline and recheck her sodium in the morning. Will not obtain a urine osmolality as this is a send out lab. Will consider urine sodium if there is no improvement. (7) Leukocytosis Conclusion/Plan: Suspect this is likely reactive. There is no evidence of infection at this time. We will hold off on antibiotics and continue to monitor. Qualifiers: Leukocytosis type: unspecified Qualified Code(s): D72.829 - Elevated white blood cell count, unspecified (8) Alcohol abuse Conclusion/Plan: She does report significant alcohol use this year since long-term. Her LFTs are mildly elevated and imaging did suggest diffuse fatty infiltration with an enlarged liver. We will check an ammonia level given her confusion although suspect this is related to her hypercalcemia. We will monitor for evidence of withdrawal. Place her on thiamine and folate. (9) GERD (gastroesophageal reflux disease) Conclusion/Plan: She has been on calcium carbonate which is likely contributing to the milk- alkali syndrome and her hypercalcemia. We will hold all calcium carbonate at this time. We will place her on Protonix daily. If she has significant symptoms during his hospitalization then we can consider a general surgery consult for endoscopy. (10) Hypertension Conclusion/Plan: We will resume her home losartan once her acute kidney reinjury resolves. We will continue her home Toprol. - Lab Results Lab results reviewed: Yes Fish Bones: 02/14/21 04:42 02/14/21 04:42 - Diagnostic Imaging Results Diagnostic Imaging Results: positive: Final report reviewed - EKG Results EKG Interpreted Independently: Yes EKG Comparison: Unchanged from prior EKG EKG Findings: G showed sinus tachycardia without any obvious ST segment changes. Her QTC is 423. Core Measures - Anticipated LOS I expect patient to be DC'd or transferred within 96 hours.: Yes - Issues Hospital Issues and Management Plan: 65-year-old female presents with progressive confusion found to have hypercalcemia and acute kidney injury. This is likely secondary to excessive calcium carbonate intake for her GERD. We will admit her for IV fluids and monitor her labs. - DVT/VTE - Prophylaxis VTE/DVT Device ordered at admit?: Yes VTE/DVT Prophylaxis med ordered at admit?: Yes
[2021-02-13] MEDS ORDERED: POTASSIUM CHLORIDE 20 MEQ TABLET PO ONE (19:44)
[2021-02-13] MEDS ORDERED: MAGNESIUM SULFATE 2 GRAM 2 GM/50 ML BAG IV ONE (19:45)
[2021-02-13 19:59] LABS: VBG PCO2 49.4 mmHg (41-51); VBG PH 7.456 (7.31-7.41)
[2021-02-13 20:00] LABS: VBG BASE EXCESS 8.8 mmol/L (-2 - +2); VBG OXYGEN SATURATION 66.9 % (60-80); VBG PO2 35.7 mmHg (25-47); VBG TOTAL CO2 35.5 mmol/L (24-29)
[2021-02-13] MEDS ORDERED: MAGNESIUM OXIDE 400 MG TABLET PO ONE (20:00)
[2021-02-13] MEDS: SODIUM CHLORIDE 0.9% 1,000 ML IV SCH ×2 (20:19→23:19)
[2021-02-13] MEDS: THIAMINE 100 MG TABLET PO SCH (20:28)
[2021-02-13] MEDS: HEPARIN 5,000 UNIT/ML VIAL SUBQ SCH (22:09)
[2021-02-13 22:10] LABS: B. PARAPERTUSSIS- RESP PCR PAN NOT DETECTED; B. PERTUSSIS- RESP PCR PANEL NOT DETECTED; C. PNEUMONIAE- RESP PCR PANEL NOT DETECTED; CORONAVIRUS 229E-RESP PCR NOT DETECTED; CORONAVIRUS HKU1-RESP PCR NOT DETECTED; CORONAVIRUS NL63-RESP PCR NOT DETECTED; CORONAVIRUS OC43-RESP PCR NOT DETECTED; HUMAN METAPNEUMOVIRUS NOT DETECTED; INFLUENZA A- RESP PCR PANEL NOT DETECTED; INFLUENZA B - RESP PCR PANEL NOT DETECTED; M. PNEUMONIAE- RESP PCR PANEL NOT DETECTED; PARAINFLUENZA VIRUS 1 NOT DETECTED; PARAINFLUENZA VIRUS 2 NOT DETECTED; PARAINFLUENZA VIRUS 3 NOT DETECTED; PARAINFLUENZA VIRUS 4 NOT DETECTED; RHINOVIRUS/ENTEROVIRUS NOT DETECTED; RSV- RESP PCR PANEL NOT DETECTED; SARS-CoV-2 -RESP PCR PANEL NOT DETECTED
[2021-02-13] MEDS: SODIUM CHLORIDE FLUSH 0.9% 10 ML SYRINGE IVP SCH (23:45)
[2021-02-14] MEDS: SODIUM CHLORIDE 0.9% 1,000 ML IV SCH ×4 (04:30→21:10)
[2021-02-14 05:45] LABS: BASOPHILS # (AUTO) 0.1 10^3/uL (0.0-0.1); BASOPHILS % (AUTO) 0.8 %; EOSINOPHILS # (AUTO) 0.3 10^3/uL (0.0-0.7); HCT - HEMATOCRIT 28.5 % (37.0-47.0); HGB - HEMOGLOBIN 9.8 g/dL (12.0-16.0); LYMPHOCYTES % (AUTO) 14.6 %; MEAN CORPUSCULAR HGB CONC 34.4 g/dL (32.0-36.0); MEAN CORPUSCULAR VOLUME 104.8 fL (81.0-99.0); MEAN PLATELET VOLUME 10.9 fL (7.9-10.8); MONOCYTES # (AUTO) 1.4 10^3/uL (0.0-1.0); MONOCYTES % (AUTO) 9.9 %; NEUTROPHILS # (AUTO) 9.8 10^3/uL (1.5-6.6); NEUTROPHILS % (AUTO) 71.9 %; PLT - PLATELET COUNT 297 10^3/uL (130-450); RED BLOOD COUNT 2.72 10^6/uL (4.20-5.40); RED CELL DISTRIBUTION WIDTH 12.1 % (12.0-15.0); WHITE BLOOD COUNT 13.7 x10^3/uL (4.8-10.8)
[2021-02-14 05:59] LABS: ALBUMIN 3.4 g/dL (3.2-5.5); BILIRUBIN,DIRECT 0.3 mg/dL (0.1-0.5); BILIRUBIN,TOTAL 0.8 mg/dL (0.2-1.0); CREATININE 2.1 mg/dL (0.4-1.0); PHOSPHORUS 1.9 mg/dL (2.5-4.6); POTASSIUM 3.3 mmol/L (3.5-5.0); TOTAL PROTEIN 6.6 g/dL (6.7-8.2)
[2021-02-14 06:07] LABS: CALCIUM 13.7 mg/dL (8.5-10.3)
[2021-02-14] MEDS: PANTOPRAZOLE 40 MG TABLET PO SCH (06:51)
[2021-02-14] MEDS ORDERED: POTASSIUM CHLORIDE 20 MEQ TABLET PO ONE (06:55)
[2021-02-14] MEDS ORDERED: POTASSIUM PHOSPHATE 15 MMOL in SODIUM CHLORIDE 0.9% 250 ML IV ONE (08:00)
[2021-02-14] MEDS: FOLIC ACID 1 MG TABLET PO SCH (08:10)
[2021-02-14] MEDS: THIAMINE 100 MG TABLET PO SCH (08:10)
[2021-02-14] MEDS: SODIUM CHLORIDE FLUSH 0.9% 10 ML SYRINGE IVP SCH ×2 (08:11→16:32)
[2021-02-14] MEDS: HEPARIN 5,000 UNIT/ML VIAL SUBQ SCH ×2 (08:30→21:16)
[2021-02-14] MEDS ORDERED: ENOXAPARIN 40 MG/0.4 ML SYRINGE SUBQ SCH (09:00)
--- NOTE | 2021-02-14 11:37 | PROVIDER PROGRESS NOTE ---
Subjective - Prog Note Date Prog Note Date: 02/14/21 Prog Note Time: 11:36 - Subjective Pt reports feeling: Improved (Is feeling mildly improved. Fogginess is a little bit better, but not back to heydi.) Current Medications - Current Medications Current Medications: Current Medications Generic Name Dose Route Start Last Admin Trade Name Belen PRN Reason Stop Dose Admin Folic Acid 1 mg 02/14/21 09:00 02/14/21 08:10 Folic Acid 1 Mg Tablet PO 1 mg DAILY ALESSIA Administration Heparin Sodium (Porcine) 5,000 unit 02/13/21 21:00 02/14/21 08:30 Heparin 5,000 Unit/Ml Vial SUBQ 5,000 unit BID ALESSIA Administration Sodium Chloride 1,000 mls @ 200 mls/hr 02/13/21 19:31 02/14/21 09:57 Normal Saline 0.9% IV 150 mls/hr .Q5H ALESSIA Administration Potassium Phosphate 15 mmol/ 255 mls @ 42.5 mls/hr 02/14/21 08:00 02/14/21 08:32 Sodium Chloride IV 02/14/21 13:59 42.5 mls/hr ONCE ONE Administration Pantoprazole Sodium 40 mg 02/14/21 07:00 02/14/21 06:51 Pantoprazole 40 Mg Tablet PO 40 mg QDAC ALESSIA Administration Sodium Chloride 10 ml 02/14/21 01:00 02/14/21 08:11 Sodium Chloride Flush 0.9% 10 Ml Syringe IVP Not Given 0100,0900,1700 ALESSIA Thiamine HCl 100 mg 02/13/21 19:45 02/14/21 08:10 Thiamine 100 Mg Tablet PO 100 mg DAILY ALESSIA Administration Objective - Vital Signs/Intake & Output Reviewed Vital Signs: Yes Vital Signs: Vital Signs x48h Temp Pulse Resp BP Pulse Ox 02/14/21 08:58 36.8 C 78 18 142/85 H 97 02/14/21 04:10 36.6 C 82 17 141/78 H 99 Intake & Output: Intake & Output 02/11/21 02/12/21 02/13/21 02/14/21 23:59 23:59 23:59 23:59 Intake Total 1555.647 7810.000 Output Total 250 Balance 0977.412 5333.000 - Objective General Appearance: positive: No acute distress, Alert, Mild distress Eyes Bilateral: positive: Normal inspection, PERRL, EOMI ENT: positive: ENT inspection nml Neck: positive: Nml inspection, Thyroid nml, No JVD Respiratory: positive: Chest non-tender, No respiratory distress, Breath sounds nml Cardiovascular: positive: Regular rate & rhythm, No murmur, No gallop Abdomen: positive: Non-tender, No organomegaly, Nml bowel sounds, No distention Back: positive: Nml inspection Skin: positive: Color nml, No rash, Warm, Dry Extremities: positive: Non-tender, Full ROM, Nml appearance Neurologic/Psychiatric: positive: Oriented x3. negative: Mood/affect nml (Somewhat flat affect), Disoriented to person, Disoriented to place, Disoriented to time, Weakness, Facial droop, Slurred/abnml speech, Depressed mood/affect - Lab Results Fish Bones: 02/14/21 04:42 02/14/21 04:42 Other Labs: Lab Results x24hrs 02/14/21 02/14/21 02/13/21 Range/Units 04:42 04:42 20:55 WBC 13.7 H (4.8-10.8) x10^3/uL RBC 2.72 L (4.20-5.40) 10^6/uL Hgb 9.8 L (12.0-16.0) g/dL Hct 28.5 L (37.0-47.0) % MCV 104.8 H (81.0-99.0) fL MCH 36.0 H (27.0-31.0) pg MCHC 34.4 (32.0-36.0) g/dL RDW 12.1 (12.0-15.0) % Plt Count 297 (130-450) 10^3/uL MPV 10.9 H (7.9-10.8) fL Neut # (Auto) 9.8 H (1.5-6.6) 10^3/uL Lymph # (Auto) 2.0 (1.5-3.5) 10^3/uL [place] # (Auto) 1.4 H (0.0-1.0) 10^3/uL Eos # (Auto) 0.3 (0.0-0.7) 10^3/uL Baso # (Auto) 0.1 (0.0-0.1) 10^3/uL Absolute Nucleated RBC 0.00 x10^3/uL Nucleated RBC % 0.0 /100WBC VBG pH (7.31-7.41) VBG pCO2 (41-51) mmHg VBG pO2 (25-47) mmHg VBG HCO3 (23-28) mmol/L VBG Total CO2 (24-29) mmol/L VBG O2 Saturation (60-80) % VBG Base Excess (-2 - +2) mmol/L Sodium 132 L (135-145) mmol/L Potassium 3.3 L (3.5-5.0) mmol/L Chloride 91 L (101-111) mmol/L Carbon Dioxide 30 (21-32) mmol/L Anion Gap 11.0 (6-13) BUN 24 H (6-20) mg/dL Creatinine 2.1 H (0.4-1.0) mg/dL Estimated GFR (MDRD) 24 L (>89) Glucose 99 (70-100) mg/dL Calcium 13.7 H* (8.5-10.3) mg/dL Phosphorus 1.9 L (2.5-4.6) mg/dL Magnesium 2.0 (1.7-2.8) mg/dL Total Bilirubin 0.8 (0.2-1.0) mg/dL Direct Bilirubin 0.3 (0.1-0.5) mg/dL AST 67 H (10-42) IU/L ALT 50 (10-60) IU/L Alkaline Phosphatase 172 H (42-121) IU/L Ammonia (7-35) umol/L Troponin I High Sens (2.3-14.8) ng/L Total Protein 6.6 L (6.7-8.2) g/dL Albumin 3.4 (3.2-5.5) g/dL Globulin 3.2 (2.1-4.2) g/dL Albumin/Globulin Ratio (1.0-2.2) Amylase 99 (28-100) U/L Lipase 273 H (22-51) U/L PTH Intact (12-88) pg/mL Urine Color Urine Clarity (CLEAR) Urine pH (5.0-7.5) PH Ur Specific [place] (1.002-1.030) Urine Protein (NEGATIVE) mg/dL Urine Glucose (UA) (NEGATIVE) mg/dL Urine Ketones (NEGATIVE) mg/dL Urine Occult Blood (NEGATIVE) Urine Nitrite (NEGATIVE) Urine Bilirubin (NEGATIVE) Urine Urobilinogen (NORMAL) E.U./dL Ur Leukocyte Esterase (NEGATIVE) Ur Microscopic Review Urine Culture Comments Nasal Adenovirus (PCR) NOT DETECTED Nasal B. parapertussis DNA (PCR) NOT DETECTED Nasal Coronavir 229E PCR NOT DETECTED Nasal Coronavir HKU1 PCR NOT DETECTED Nasal Coronavir NL63 PCR NOT DETECTED Nasal Coronavir OC43 PCR NOT DETECTED Nasal Enterovir/Rhinovir PCR NOT DETECTED Nasal Influenza B PCR NOT DETECTED Nasal Influenza A PCR NOT DETECTED Nasal Parainfluen 1 PCR NOT DETECTED Nasal Parainfluen 2 PCR NOT DETECTED Nasal Parainfluen 3 PCR NOT DETECTED Nasal Parainfluen 4 PCR NOT DETECTED Nasal RSV (PCR) NOT DETECTED Nasal B.pertussis DNA PCR NOT DETECTED Nasal C.pneumoniae (PCR) NOT DETECTED Jose Roberto Human Metapneumo PCR NOT DETECTED Nasal M.pneumoniae (PCR) NOT DETECTED Nasal SARS-CoV-2 (PCR) NOT DETECTED Urine Opiates Screen (NEGATIVE) Ur Oxycodone Screen (NEGATIVE) Urine Methadone Screen (NEGATIVE) Ur Propoxyphene Screen (NEGATIVE) Ur Barbiturates Screen (NEGATIVE) Ur Tricyclics Screen (NEGATIVE) Ur Phencyclidine Scrn (NEGATIVE) Ur Amphetamine Screen (NEGATIVE) U Methamphetamines Scrn (NEGATIVE) U Benzodiazepines Scrn (NEGATIVE) Urine Cocaine Screen (NEGATIVE) U Cannabinoids Screen (NEGATIVE) 02/13/21 02/13/21 02/13/21 Range/Units 19:50 19:50 19:50 WBC (4.8-10.8) x10^3/uL RBC (4.20-5.40) 10^6/uL Hgb (12.0-16.0) g/dL Hct (37.0-47.0) % MCV (81.0-99.0) fL MCH (27.0-31.0) pg MCHC (32.0-36.0) g/dL RDW (12.0-15.0) % Plt Count (130-450) 10^3/uL MPV (7.9-10.8) fL Neut # (Auto) (1.5-6.6) 10^3/uL Lymph # (Auto) (1.5-3.5) 10^3/uL [place] # (Auto) (0.0-1.0) 10^3/uL Eos # (Auto) (0.0-0.7) 10^3/uL Baso # (Auto) (0.0-0.1) 10^3/uL Absolute Nucleated RBC x10^3/uL Nucleated RBC % /100WBC VBG pH 7.456 H (7.31-7.41) VBG pCO2 49.4 (41-51) mmHg VBG pO2 35.7 (25-47) mmHg VBG HCO3 34.0 H (23-28) mmol/L VBG Total CO2 35.5 H (24-29) mmol/L VBG O2 Saturation 66.9 (60-80) % VBG Base Excess 8.8 H (-2 - +2) mmol/L Sodium (135-145) mmol/L Potassium (3.5-5.0) mmol/L Chloride (101-111) mmol/L Carbon Dioxide (21-32) mmol/L Anion Gap (6-13) BUN (6-20) mg/dL Creatinine (0.4-1.0) mg/dL Estimated GFR (MDRD) (>89) Glucose (70-100) mg/dL Calcium (8.5-10.3) mg/dL Phosphorus (2.5-4.6) mg/dL Magnesium (1.7-2.8) mg/dL Total Bilirubin (0.2-1.0) mg/dL Direct Bilirubin (0.1-0.5) mg/dL AST (10-42) IU/L ALT (10-60) IU/L Alkaline Phosphatase (42-121) IU/L Ammonia 27.9 (7-35) umol/L Troponin I High Sens (2.3-14.8) ng/L Total Protein (6.7-8.2) g/dL Albumin (3.2-5.5) g/dL Globulin (2.1-4.2) g/dL Albumin/Globulin Ratio (1.0-2.2) Amylase (28-100) U/L Lipase (22-51) U/L PTH Intact 7 L (12-88) pg/mL Urine Color Urine Clarity (CLEAR) Urine pH (5.0-7.5) PH Ur Specific [place] (1.002-1.030) Urine Protein (NEGATIVE) mg/dL Urine Glucose (UA) (NEGATIVE) mg/dL Urine Ketones (NEGATIVE) mg/dL Urine Occult Blood (NEGATIVE) Urine Nitrite (NEGATIVE) Urine Bilirubin (NEGATIVE) Urine Urobilinogen (NORMAL) E.U./dL Ur Leukocyte Esterase (NEGATIVE) Ur Microscopic Review Urine Culture Comments Nasal Adenovirus (PCR) Nasal B. parapertussis DNA (PCR) Nasal Coronavir 229E PCR Nasal Coronavir HKU1 PCR Nasal Coronavir NL63 PCR Nasal Coronavir OC43 PCR Nasal Enterovir/Rhinovir PCR Nasal Influenza B PCR Nasal Influenza A PCR Nasal Parainfluen 1 PCR Nasal Parainfluen 2 PCR Nasal Parainfluen 3 PCR Nasal Parainfluen 4 PCR Nasal RSV (PCR) Nasal B.pertussis DNA PCR Nasal C.pneumoniae (PCR) Jose Roberto Human Metapneumo PCR Nasal M.pneumoniae (PCR) Nasal SARS-CoV-2 (PCR) Urine Opiates Screen (NEGATIVE) Ur Oxycodone Screen (NEGATIVE) Urine Methadone Screen (NEGATIVE) Ur Propoxyphene Screen (NEGATIVE) Ur Barbiturates Screen (NEGATIVE) Ur Tricyclics Screen (NEGATIVE) Ur Phencyclidine Scrn (NEGATIVE) Ur Amphetamine Screen (NEGATIVE) U Methamphetamines Scrn (NEGATIVE) U Benzodiazepines Scrn (NEGATIVE) Urine Cocaine Screen (NEGATIVE) U Cannabinoids Screen (NEGATIVE) 02/13/21 02/13/21 02/13/21 Range/Units 18:00 16:52 16:45 WBC (4.8-10.8) x10^3/uL RBC (4.20-5.40) 10^6/uL Hgb (12.0-16.0) g/dL Hct (37.0-47.0) % MCV (81.0-99.0) fL MCH (27.0-31.0) pg MCHC (32.0-36.0) g/dL RDW (12.0-15.0) % Plt Count (130-450) 10^3/uL MPV (7.9-10.8) fL Neut # (Auto) (1.5-6.6) 10^3/uL Lymph # (Auto) (1.5-3.5) 10^3/uL [place] # (Auto) (0.0-1.0) 10^3/uL Eos # (Auto) (0.0-0.7) 10^3/uL Baso # (Auto) (0.0-0.1) 10^3/uL Absolute Nucleated RBC x10^3/uL Nucleated RBC % /100WBC VBG pH (7.31-7.41) VBG pCO2 (41-51) mmHg VBG pO2 (25-47) mmHg VBG HCO3 (23-28) mmol/L VBG Total CO2 (24-29) mmol/L VBG O2 Saturation (60-80) % VBG Base Excess (-2 - +2) mmol/L Sodium 128 L (135-145) mmol/L Potassium 3.3 L (3.5-5.0) mmol/L Chloride 84 L (101-111) mmol/L Carbon Dioxide 34 H (21-32) mmol/L Anion Gap 10.0 (6-13) BUN 28 H (6-20) mg/dL Creatinine 2.5 H (0.4-1.0) mg/dL Estimated GFR (MDRD) 19 L (>89) Glucose 113 H (70-100) mg/dL Calcium 16.2 H* (8.5-10.3) mg/dL Phosphorus 2.6 (2.5-4.6) mg/dL Magnesium 1.4 L (1.7-2.8) mg/dL Total Bilirubin 1.1 H (0.2-1.0) mg/dL Direct Bilirubin (0.1-0.5) mg/dL AST 74 H (10-42) IU/L ALT 58 (10-60) IU/L Alkaline Phosphatase 203 H (42-121) IU/L Ammonia (7-35) umol/L Troponin I High Sens 31.6 H* (2.3-14.8) ng/L Total Protein 7.6 (6.7-8.2) g/dL Albumin 3.9 (3.2-5.5) g/dL Globulin 3.7 (2.1-4.2) g/dL Albumin/Globulin Ratio 1.1 (1.0-2.2) Amylase (28-100) U/L Lipase 320 H (22-51) U/L PTH Intact (12-88) pg/mL Urine Color YELLOW Urine Clarity CLEAR (CLEAR) Urine pH 6.0 (5.0-7.5) PH Ur Specific [place] 1.015 (1.002-1.030) Urine Protein NEGATIVE (NEGATIVE) mg/dL Urine Glucose (UA) NEGATIVE (NEGATIVE) mg/dL Urine Ketones NEGATIVE (NEGATIVE) mg/dL Urine Occult Blood NEGATIVE (NEGATIVE) Urine Nitrite NEGATIVE (NEGATIVE) Urine Bilirubin NEGATIVE (NEGATIVE) Urine Urobilinogen 0.2 (NORMAL) (NORMAL) E.U./dL Ur Leukocyte Esterase NEGATIVE (NEGATIVE) Ur Microscopic Review NOT INDICATED Urine Culture Comments NOT INDICATED Nasal Adenovirus (PCR) Nasal B. parapertussis DNA (PCR) Nasal Coronavir 229E PCR Nasal Coronavir HKU1 PCR Nasal Coronavir NL63 PCR Nasal Coronavir OC43 PCR Nasal Enterovir/Rhinovir PCR Nasal Influenza B PCR Nasal Influenza A PCR Nasal Parainfluen 1 PCR Nasal Parainfluen 2 PCR Nasal Parainfluen 3 PCR Nasal Parainfluen 4 PCR Nasal RSV (PCR) Nasal B.pertussis DNA PCR Nasal C.pneumoniae (PCR) Jose Roberto Human Metapneumo PCR Nasal M.pneumoniae (PCR) Nasal SARS-CoV-2 (PCR) Urine Opiates Screen NEGATIVE (NEGATIVE) Ur Oxycodone Screen NEGATIVE (NEGATIVE) Urine Methadone Screen NEGATIVE (NEGATIVE) Ur Propoxyphene Screen NEGATIVE (NEGATIVE) Ur Barbiturates Screen NEGATIVE (NEGATIVE) Ur Tricyclics Screen NEGATIVE (NEGATIVE) Ur Phencyclidine Scrn NEGATIVE (NEGATIVE) Ur Amphetamine Screen NEGATIVE (NEGATIVE) U Methamphetamines Scrn NEGATIVE (NEGATIVE) U Benzodiazepines Scrn NEGATIVE (NEGATIVE) Urine Cocaine Screen NEGATIVE (NEGATIVE) U Cannabinoids Screen NEGATIVE (NEGATIVE) 02/13/21 Range/Units 16:45 WBC 17.0 H (4.8-10.8) x10^3/uL RBC 3.14 L (4.20-5.40) 10^6/uL Hgb 11.3 L (12.0-16.0) g/dL Hct 32.1 L (37.0-47.0) % MCV 102.2 H (81.0-99.0) fL MCH 36.0 H (27.0-31.0) pg MCHC 35.2 (32.0-36.0) g/dL RDW 12.2 (12.0-15.0) % Plt Count 327 (130-450) 10^3/uL MPV 10.0 (7.9-10.8) fL Neut # (Auto) 13.6 H (1.5-6.6) 10^3/uL Lymph # (Auto) 1.7 (1.5-3.5) 10^3/uL [place] # (Auto) 1.5 H (0.0-1.0) 10^3/uL Eos # (Auto) 0.1 (0.0-0.7) 10^3/uL Baso # (Auto) 0.1 (0.0-0.1) 10^3/uL Absolute Nucleated RBC 0.00 x10^3/uL Nucleated RBC % 0.0 /100WBC VBG pH (7.31-7.41) VBG pCO2 (41-51) mmHg VBG pO2 (25-47) mmHg VBG HCO3 (23-28) mmol/L VBG Total CO2 (24-29) mmol/L VBG O2 Saturation (60-80) % VBG Base Excess (-2 - +2) mmol/L Sodium (135-145) mmol/L Potassium (3.5-5.0) mmol/L Chloride (101-111) mmol/L Carbon Dioxide (21-32) mmol/L Anion Gap (6-13) BUN (6-20) mg/dL Creatinine (0.4-1.0) mg/dL Estimated GFR (MDRD) (>89) Glucose (70-100) mg/dL Calcium (8.5-10.3) mg/dL Phosphorus (2.5-4.6) mg/dL Magnesium (1.7-2.8) mg/dL Total Bilirubin (0.2-1.0) mg/dL Direct Bilirubin (0.1-0.5) mg/dL AST (10-42) IU/L ALT (10-60) IU/L Alkaline Phosphatase (42-121) IU/L Ammonia (7-35) umol/L Troponin I High Sens (2.3-14.8) ng/L Total Protein (6.7-8.2) g/dL Albumin (3.2-5.5) g/dL Globulin (2.1-4.2) g/dL Albumin/Globulin Ratio (1.0-2.2) Amylase (28-100) U/L Lipase (22-51) U/L PTH Intact (12-88) pg/mL Urine Color Urine Clarity (CLEAR) Urine pH (5.0-7.5) PH Ur Specific [place] (1.002-1.030) Urine Protein (NEGATIVE) mg/dL Urine Glucose (UA) (NEGATIVE) mg/dL Urine Ketones (NEGATIVE) mg/dL Urine Occult Blood (NEGATIVE) Urine Nitrite (NEGATIVE) Urine Bilirubin (NEGATIVE) Urine Urobilinogen (NORMAL) E.U./dL Ur Leukocyte Esterase (NEGATIVE) Ur Microscopic Review Urine Culture Comments Nasal Adenovirus (PCR) Nasal B. parapertussis DNA (PCR) Nasal Coronavir 229E PCR Nasal Coronavir HKU1 PCR Nasal Coronavir NL63 PCR Nasal Coronavir OC43 PCR Nasal Enterovir/Rhinovir PCR Nasal Influenza B PCR Nasal Influenza A PCR Nasal Parainfluen 1 PCR Nasal Parainfluen 2 PCR Nasal Parainfluen 3 PCR Nasal Parainfluen 4 PCR Nasal RSV (PCR) Nasal B.pertussis DNA PCR Nasal C.pneumoniae (PCR) Jose Roberto Human Metapneumo PCR Nasal M.pneumoniae (PCR) Nasal SARS-CoV-2 (PCR) Urine Opiates Screen (NEGATIVE) Ur Oxycodone Screen (NEGATIVE) Urine Methadone Screen (NEGATIVE) Ur Propoxyphene Screen (NEGATIVE) Ur Barbiturates Screen (NEGATIVE) Ur Tricyclics Screen (NEGATIVE) Ur Phencyclidine Scrn (NEGATIVE) Ur Amphetamine Screen (NEGATIVE) U Methamphetamines Scrn (NEGATIVE) U Benzodiazepines Scrn (NEGATIVE) Urine Cocaine Screen (NEGATIVE) U Cannabinoids Screen (NEGATIVE) - Diagnostic Imaging Diagnostic Imaging Results: positive: Final report reviewed ABX Reporting Has patient been on IV antibiotics over the past 48 hours?: No Assessment/Plan - Problem List (1) Hypercalcemia Impression: Hypercalcemia on admission with calcium of 16.2. Treated primarily with IV fluids and furosemide. Underlying etiology is most likely secondary to excessive consumption of Tums in the setting of alcoholism (drinking 1.5 bottle of wine per day) No evidence of malignancy. PTH protein and vitamin D panel pending. Follow-up labs at noon do, will review. Continue aggressive IV fluid hydration, NS at 200 mL/h. Continue monitoring with supportive care (2) Acute kidney injury Impression: Likely also multifactorial with hypercalcemia in the setting of alcoholism and likely subsequent dehydration Creatinine improved from 0.5 on admission, Now decreased to 2.1 Continue to avoid nephrotoxic agents Continue IV fluid hydration Monitor labs (3) Alcohol abuse Impression: Patient admits to excessive alcohol consumption Counseled her on importance of cessation and will provide resources prior to discharge Patient states her last beverage was Friday,, Unlikely to have withdrawal at this point but will monitor closely. (4) Confusion Impression: Somewhat improved Likely secondary to hypercalcemia Continue to monitor as calcium level decreases (5) Hypertension Impression: Mildly elevated blood pressures without previously known history of hypertension Likely exacerbated by current alcohol consumption Consider lifestyle changes prior to initiation of medication at discharge Qualifiers: Hypertension type: essential hypertension Qualified Code(s): I10 - Essential (primary) hypertension (6) Pancreatitis Impression: Elevated lipase with CT scan suggestive of pancreatitis on admission. Asymptomatic with no abdominal symptoms. Likely secondary to excessive alcohol consumption. Monitor for symptoms, encourage alcohol cessation, but no need to recheck lipase levels at this point
[2021-02-14 12:16] LABS: VBG PH 7.401 (7.31-7.41)
[2021-02-14 12:17] LABS: CALCIUM, IONIZED 1.8 mmol/L (1.15-1.33)
[2021-02-14 12:33] LABS: POTASSIUM 3.8 mmol/L (3.5-5.0)
[2021-02-14 12:34] LABS: CALCIUM 12.6 mg/dL (8.5-10.3)
--- NOTE | 2021-02-14 12:58 | PHARMACY PROGRESS NOTE ---
- Best Possible Medication History Admit Date and Time: 02/13/21 1828 Processed by: Nursing Medication History completed: Yes As the person ultimately responsible for medication therapy, providers are able to order a medication from an existing home medication list in [facility] via the "Reconcile Routine" prior to Confirmation of that medication by cryptologic support specialist. Such practice is discouraged except when the physician, in their clinical judgment, deems that a medical need exists for a medication without regard to previous use.
[2021-02-15] MEDS: SODIUM CHLORIDE FLUSH 0.9% 10 ML SYRINGE IVP SCH ×3 (02:06→16:45)
[2021-02-15] MEDS: SODIUM CHLORIDE 0.9% 1,000 ML IV SCH ×5 (02:06→23:14)
[2021-02-15 05:34] LABS: BASOPHILS # (AUTO) 0.1 10^3/uL (0.0-0.1); BASOPHILS % (AUTO) 0.8 %; EOSINOPHILS # (AUTO) 0.4 10^3/uL (0.0-0.7); EOSINOPHILS % (AUTO) 3.2 %; HGB - HEMOGLOBIN 8.9 g/dL (12.0-16.0); LYMPHOCYTES % (AUTO) 15.6 %; MEAN CORPUSCULAR HEMOGLOBIN 35.6 pg (27.0-31.0); MEAN PLATELET VOLUME 10.7 fL (7.9-10.8); MONOCYTES # (AUTO) 1.2 10^3/uL (0.0-1.0); MONOCYTES % (AUTO) 9.2 %; NEUTROPHILS # (AUTO) 9.1 10^3/uL (1.5-6.6); NEUTROPHILS % (AUTO) 70.3 %; PLT - PLATELET COUNT 265 10^3/uL (130-450); RED CELL DISTRIBUTION WIDTH 12.6 % (12.0-15.0)
[2021-02-15 05:42] LABS: CALCIUM 10.5 mg/dL (8.5-10.3); CREATININE 1.8 mg/dL (0.4-1.0); MAGNESIUM 1.4 mg/dL (1.7-2.8); PHOSPHORUS 1.9 mg/dL (2.5-4.6); POTASSIUM 3.3 mmol/L (3.5-5.0)
[2021-02-15] MEDS: PANTOPRAZOLE 40 MG TABLET PO SCH (05:47)
[2021-02-15] MEDS ORDERED: POTASSIUM CHLORIDE 20 MEQ TABLET PO ONE (06:00)
[2021-02-15] MEDS ORDERED: MAGNESIUM SULFATE 2 GRAM 2 GM/50 ML BAG IV ONE (06:00)
[2021-02-15] MEDS ORDERED: POTASSIUM PHOSPHATE 15 MMOL in SODIUM CHLORIDE 0.9% 250 ML IV ONE (07:00)
[2021-02-15] MEDS: MAGNESIUM OXIDE 400 MG TABLET PO SCH (08:20)
[2021-02-15] MEDS: FOLIC ACID 1 MG TABLET PO SCH (08:20)
[2021-02-15] MEDS: THIAMINE 100 MG TABLET PO SCH (08:20)
[2021-02-15] MEDS: MULTIVITAMIN W/MINERALS TABLET PO SCH (08:20)
[2021-02-15] MEDS: HEPARIN 5,000 UNIT/ML VIAL SUBQ SCH ×2 (09:19→20:52)
--- NOTE | 2021-02-15 14:30 | PROVIDER PROGRESS NOTE ---
Subjective - Prog Note Date Prog Note Date: 02/15/21 Prog Note Time: 14:28 - Subjective Pt reports feeling: Improved Current Medications - Current Medications Current Medications: Current Medications Generic Name Dose Route Start Last Admin Trade Name Belen PRN Reason Stop Dose Admin Folic Acid 1 mg 02/14/21 09:00 02/15/21 08:20 Folic Acid 1 Mg Tablet PO 1 mg DAILY ALESSIA Administration Heparin Sodium (Porcine) 5,000 unit 02/13/21 21:00 02/15/21 09:19 Heparin 5,000 Unit/Ml Vial SUBQ 5,000 unit BID ALESSIA Administration Sodium Chloride 1,000 mls @ 200 mls/hr 02/13/21 19:31 02/15/21 13:28 Normal Saline 0.9% IV 200 mls/hr .Q5H ALESSIA Administration Magnesium Oxide 400 mg 02/15/21 08:00 02/15/21 08:20 Magnesium Oxide 400 Mg Tablet PO 400 mg DAILYWM ALESSIA Administration Multivitamins/Minerals 1 tab 02/15/21 08:00 02/15/21 08:20 Multivitamin W/Minerals Tablet PO 1 tab DAILYWM ALESSIA Administration Pantoprazole Sodium 40 mg 02/14/21 07:00 02/15/21 05:47 Pantoprazole 40 Mg Tablet PO 40 mg QDAC ALESSIA Administration Sodium Chloride 10 ml 02/14/21 01:00 02/15/21 08:20 Sodium Chloride Flush 0.9% 10 Ml Syringe IVP 10 ml 0100,0900,1700 ALESSIA Administration Thiamine HCl 100 mg 02/13/21 19:45 02/15/21 08:20 Thiamine 100 Mg Tablet PO 100 mg DAILY ALESSIA Administration Objective - Vital Signs/Intake & Output Reviewed Vital Signs: Yes Vital Signs: Vital Signs x48h Temp Pulse Resp BP Pulse Ox 02/15/21 12:11 36.9 C 87 20 138/86 H 98 02/15/21 07:26 36.5 C 85 20 145/82 H 98 Intake & Output: Intake & Output 02/12/21 02/13/21 02/14/21 02/15/21 23:59 23:59 23:59 23:59 Intake Total 7037.710 0835.000 3456.667 Output Total 250 300 750 Balance 6997.832 4475.000 2706.667 - Objective General Appearance: positive: No acute distress, Alert Eyes Bilateral: positive: Normal inspection, EOMI ENT: positive: ENT inspection nml Neck: positive: Nml inspection, Thyroid nml, No JVD Respiratory: positive: Chest non-tender, No respiratory distress, Breath sounds nml Cardiovascular: positive: Regular rate & rhythm, No murmur, No gallop Abdomen: positive: Non-tender, No organomegaly, Nml bowel sounds, No distention, Tenderness Skin: positive: Color nml, No rash, Warm Extremities: positive: Non-tender, Full ROM, Nml appearance Neurologic/Psychiatric: positive: Oriented x3, CN's nml (2-12), Motor nml, Mood/affect nml - Lab Results Fish Bones: 02/15/21 04:48 02/15/21 04:48 Other Labs: Lab Results x24hrs 02/15/21 02/15/21 02/13/21 Range/Units 04:48 04:48 19:50 WBC 13.0 H (4.8-10.8) x10^3/uL RBC 2.50 L (4.20-5.40) 10^6/uL Hgb 8.9 L (12.0-16.0) g/dL Hct 27.0 L (37.0-47.0) % MCV 108.0 H (81.0-99.0) fL MCH 35.6 H (27.0-31.0) pg MCHC 33.0 (32.0-36.0) g/dL RDW 12.6 (12.0-15.0) % Plt Count 265 (130-450) 10^3/uL MPV 10.7 (7.9-10.8) fL Neut # (Auto) 9.1 H (1.5-6.6) 10^3/uL Lymph # (Auto) 2.0 (1.5-3.5) 10^3/uL [place] # (Auto) 1.2 H (0.0-1.0) 10^3/uL Eos # (Auto) 0.4 (0.0-0.7) 10^3/uL Baso # (Auto) 0.1 (0.0-0.1) 10^3/uL Absolute Nucleated RBC 0.00 x10^3/uL Nucleated RBC % 0.0 /100WBC Sodium 134 L (135-145) mmol/L Potassium 3.3 L (3.5-5.0) mmol/L Chloride 103 (101-111) mmol/L Carbon Dioxide 23 (21-32) mmol/L Anion Gap 8.0 (6-13) BUN 21 H (6-20) mg/dL Creatinine 1.8 H (0.4-1.0) mg/dL Estimated GFR (MDRD) 28 L (>89) Glucose 90 (70-100) mg/dL Calcium 10.5 H (8.5-10.3) mg/dL Phosphorus 1.9 L (2.5-4.6) mg/dL Magnesium 1.4 L (1.7-2.8) mg/dL 25-OH Vitamin D Total 93 (30-100) ng/mL Assessment/Plan - Problem List (1) Hypercalcemia Impression: Hypercalcemia on admission with calcium of 16.2. Treated primarily with IV fluids Underlying etiology is most likely secondary to excessive consumption of Tums in the setting of alcoholism (drinking 1.5 bottle of wine per day) No evidence of malignancy. PTH protein and vitamin D panel pending. Ca down to 10.5, doing well, appropriate rate of correction Continue aggressive IV fluid hydration, NS at 200 mL/h. Continue monitoring with supportive care (2) Acute kidney injury Impression: Likely also multifactorial with hypercalcemia in the setting of alcoholism and likely subsequent dehydration Creatinine improved from 2.5 on admission, Now decreased to 1.8 Continue to avoid nephrotoxic agents Continue IV fluid hydration Monitor labs (3) Alcohol abuse Impression: Patient admits to excessive alcohol consumption Counseled her on importance of cessation and will provide resources prior to discharge Patient states her last beverage was Friday,, Unlikely to have withdrawal at this point but will monitor closely. (4) Confusion Impression: 2/2 HyperCa+ Resolved (5) Hypertension Impression: BP well controlled Monitor Qualifiers: Hypertension type: essential hypertension Qualified Code(s): I10 - Essential (primary) hypertension (6) Pancreatitis Impression: Elevated lipase with CT scan suggestive of pancreatitis on admission. Asymptomatic with no abdominal symptoms. Likely secondary to excessive alcohol consumption. Monitor for symptoms, encourage alcohol cessation, but no need to recheck lipase levels at this point (7) Elevated LFTs Impression: Likely secondary to alcohol consumption Trending down Recommend outpatient monitoring
[2021-02-16] MEDS: SODIUM CHLORIDE FLUSH 0.9% 10 ML SYRINGE IVP SCH ×2 (01:02→09:15)
[2021-02-16] MEDS: SODIUM CHLORIDE 0.9% 1,000 ML IV SCH (01:51)
[2021-02-16 05:24] LABS: BASOPHILS # (AUTO) 0.1 10^3/uL (0.0-0.1); BASOPHILS % (AUTO) 0.6 %; EOSINOPHILS # (AUTO) 0.4 10^3/uL (0.0-0.7); EOSINOPHILS % (AUTO) 2.3 %; HCT - HEMATOCRIT 25.4 % (37.0-47.0); HGB - HEMOGLOBIN 8.6 g/dL (12.0-16.0); LYMPHOCYTES # (AUTO) 1.6 10^3/uL (1.5-3.5); LYMPHOCYTES % (AUTO) 9.8 %; MEAN CORPUSCULAR HEMOGLOBIN 36.3 pg (27.0-31.0); MEAN CORPUSCULAR HGB CONC 33.9 g/dL (32.0-36.0); MEAN CORPUSCULAR VOLUME 107.2 fL (81.0-99.0); MEAN PLATELET VOLUME 10.5 fL (7.9-10.8); MONOCYTES # (AUTO) 1.3 10^3/uL (0.0-1.0); NEUTROPHILS # (AUTO) 12.5 10^3/uL (1.5-6.6); NEUTROPHILS % (AUTO) 78.4 %; PLT - PLATELET COUNT 279 10^3/uL (130-450); RED BLOOD COUNT 2.37 10^6/uL (4.20-5.40); RED CELL DISTRIBUTION WIDTH 12.6 % (12.0-15.0); WHITE BLOOD COUNT 15.9 x10^3/uL (4.8-10.8)
[2021-02-16 05:33] LABS: CALCIUM 8.5 mg/dL (8.5-10.3); CREATININE 1.7 mg/dL (0.4-1.0); MAGNESIUM 1.4 mg/dL (1.7-2.8); PHOSPHORUS 1.7 mg/dL (2.5-4.6); POTASSIUM 3.2 mmol/L (3.5-5.0)
[2021-02-16] MEDS: PANTOPRAZOLE 40 MG TABLET PO SCH (06:55)
[2021-02-16] MEDS ORDERED: POTASSIUM CHLORIDE 20 MEQ TABLET PO ONE (07:11)
[2021-02-16] MEDS ORDERED: MAGNESIUM SULFATE 2 GRAM 2 GM/50 ML BAG IV ONE (07:11)
[2021-02-16] MEDS: MAGNESIUM OXIDE 400 MG TABLET PO SCH (07:40)
[2021-02-16] MEDS: MULTIVITAMIN W/MINERALS TABLET PO SCH (07:43)
[2021-02-16 07:47] VITALS: BP 149/81
[2021-02-16] MEDS ORDERED: NEUTRA-PHOS 250 MG TABLET PO ONE (08:00)
--- NOTE | 2021-02-16 08:54 | Discharge Plan ---
Discharge Plan Problem Reviewed?: Yes Disposition: Home, Self Care Condition: Stable Diet: Cardiac Activity Restrictions: No Restrictions Shower Restrictions: No Driving Restrictions: No Instruction Topics: GERD Lifestyle Changes, Alcoholism, Hypercalcemia Dc Health Concerns: Hypercalcemia Alcohol dependence Acid reflux Hypertension Plan of Treatment: You were admitted because of something called hypercalcemia, which is a abnormally high calcium level in the bloodstream. It is most likely this is due to multiple factors but mostly Due to excessive ingestion of Tums which is a calcium-containing antacid medication. This was probably exacerbated by drinking too much alcohol and being dehydrated. We admitted you for treatment of this with IV fluids and your calcium level normalized before discharge. In addition, your lab work was remarkable for something called acute kidney injury which is measured by a elevated creatinine level. Normally this number should be less than 1, it was 2.5 when you were admitted. It improved significantly and decreased down to 1.7 on the day of discharge, but this is s till abnormally high and I would like you to make sure to drink lots of fluids, avoid medications that can affect the kidneys, I have your doctor recheck this in about 1 week or so. As far as medications that can affect the kidneys, I am going to discontinue losartan and indomethacin as both of these can affect kidney function. And with respect to [id number] medications, as we discussed, avoid any NSAID medications. This includes Aleve, ibuprofen, Advil, or basically anything [id number] for pain that is not Tylenol or the generic equivalent. I know you complained of pain in your feet due to a gout flareup and this is why indomethacin was prescribed. Hopefully this will improve as you rehydrate and stop drinking alcohol, but in the future try to see if you can manage her pain with Tylenol, or if pain becomes severe enough your doctor can prescribe other medications such as prednisone, or colchicine which can help treat gout but less likely to cause any issues to your kidneys. As far as your acid reflux, it seems like that has improved since being hospitalized. I suspect this may be because of the excessive wine that you have been drinking and I congratulate you on deciding to stop doing this because I think it will help with your acid reflux symptoms, as well as blood pressure and other health issues. If you continue to have heartburn despite no longer drinki ng alcohol, continue using the AcipHex that your doctor prescribed, or talk to your doctor about other prescription medications that can be used. Please avoid excessive amounts of Tums, Rolaids, or milk of magnesia as all of these can affect your electrolytes if used in excessive amounts. Additional Instructions or Follow Up instructions: As discussed, please follow-up with your primary care doctor in about 1 week or so to review your blood pressure to see if we need to prescribe something to take place of the losartan that I discontinued. Also, and would be a good idea to recheck your labs to see if your kidney function has normalized. No Smoking: If you smoke, Please STOP! Call for help. Follow-up with: Provider,Other [Primary Care Provider] -
[2021-02-16] MEDS: HEPARIN 5,000 UNIT/ML VIAL SUBQ SCH (09:14)
[2021-02-16] MEDS: FOLIC ACID 1 MG TABLET PO SCH (09:14)
[2021-02-16] MEDS: THIAMINE 100 MG TABLET PO SCH (09:14)
--- NOTE | 2021-02-16 11:46 | DISCHARGE SUMMARY ---
Discharge Summary Admit Date: 02/13/21 Discharge Date: 02/16/21 Discharging Provider: Mk Summers MD Primary Care Provider: Dani Vtial Condition at Discharge: Stable Discharge Disposition: 01 Home, Self Care - DIAGNOSES Admission Diagnoses: Hypercalcemia Confusion Milk-alkali syndrome Acute kidney injury Pancreatitis Hyponatremia Leukocytosis Alcohol abuse GERD Hypertension Discharge Diagnoses with Status of Each Condition: Hypercalcemia - Resolved Confusion - Resolved Milk-alkali syndrome - Resolved Acute kidney injury - Improved Pancreatitis - Stable Hyponatremia - Stable Leukocytosis - Stable Alcohol abuse - Chronic, improved GERD - Improved Hypertension - Stable - HPI History of Present Illness: This is a 65-year-old female with past medical history significant for hypertension, GERD, iron deficiency anemia who presents today due to increasing confusion and difficulty walking at home. She states she has felt this way for the past few days and her , Paramjit, tells me that has been going on for about the past week. The patient retired in August of this year and the patient has been noted since September that she has been less active. He thought that she may have just been depressed given she was recently retired. He noticed that over the past week she has had increasing confusion and has become very unsteady when ambulating. She has been trying to hold onto [place] which is quite unusual for her. He noticed that last night she was trying to write a check and she had difficulty writing and the numbers were incorrect. Due to what happened yesterday evening, he brought her in for evaluation today. The patient does complain of the difficulty ambulating and confusion. She knows she is at the hospital and she knows the year, month. She denies any chest pain, difficulty breathing, nausea, vomiting. She reports no abdominal pain, dysuria, urgency, hematuria. She does have chronic dyspepsia and has been taking Tums for quite a few years now. She states she normally takes about 5 to 6 tablets a day but at times can take up to 10 tablets in a day. She is no longer taking chlorthalidone after it was discontinued in August when she was admitted for syncope from orthostasis and hyponatremia. She does report drinking a bottle and a half of wine a day for quite a few years now. She denies any history of alcohol withdrawal. She reports her last drink was Friday night. She denies any history of malignancy or family history. She reports having a colonoscopy and endoscopy a few years ago which did not reveal any mass. In the emergency department, she was noted to be afebrile. She was hypertensive with systolic in the 140s. She was also tachycardic with a heart rate in the 100s. She was not tachypneic and was saturating well on room air. Labs were s ignificant for a white count of 17,000. Her sodium was 128, potassium 3.3, chloride 84, bicarbonate 34, BUN 28, and creatinine 2.5. Her calcium was 16.2. Total bilirubin was 1.1, AST 74, alkaline phosphatase 203. Her urinalysis was unremarkable. She underwent a CT of the abdomen and pelvis which was suggestive of possible mild pancreatitis and hepatomegaly. CT of the head was unremarkable. Given the above findings, medicine was consulted for admission. I did discuss goals of care with the patient and she would like to be a full code. - HOSPITAL COURSE Hospital Course: Adriana Ho was admitted for hypercalcemia along with hyponatremia, acute kidney injury, and mildly elevated LFTs. Subsequently this was thought to be secondary to milk-alkali syndrome due to over ingestion of Tums and acids, in the setting of excessive alcohol consumption with 1.5 bottles of wine per day, in addition to dehydration. She was given a dose of Lasix in the ER, as well as IV fluids and the IV fluids were continued throughout the hospitalization. Labs were drawn for further evaluation of endocrinological disorders and PTH came back with appropriately low level, PTH protein is pending at the time of discharge. Patient had continuous normal saline at 200 mL/h throughout the hospitalization and her labs trended towards improvement with eventual resolution of the hypercalcemia discharging with a normal calcium level. Her creatinine level improved from 2.5-1.7 at discharge. Her GERD symptomatically improved as did her mental fogginess and confusion, in addition to her foot pain which was previously diagnosed as gout. On discharge today, conversation was had with patient and regarding underlying etiology for this. This included multiple factors Such as the alcoholism, indomethacin for gout, and significant amount of Tums ingestion. She was counseled on the importance of alcohol cessation and its relationship to GERD and to gout as well as hypertension among other medical complications that can arise from this. She was counseled to quit and she agreed. She was counseled to resume the AcipHex for which she was given a prescription to treat her GERD, and talk to her PCP if this does not help rather than using Tums. She was counseled to stop using indomethacin due to the ADE and avoid other OTC NSAIDs, using as needed Tylenol for occasional pain. Her losartan was held at discharge due to her ADE, and her blood pressure was in a tolerable range. She was advised to perform ambulatory blood pressure monitoring and call her PCP should any significant elevations arise, but otherwise follow-up with PCP for repeat labs. She did still have a residual leukocytosis at discharge with a WBC of 15,000 but had no fever, normal urinalysis, clear lungs on exam with normal vital signs, no hypoxia. Likely this was secondary to stress reaction but again would recommend following this up with PCP after discharge. - ALLERGIES Allergies/Adverse Reactions: Allergies Allergy/AdvReac Type Severity Reaction Status Date / Time Sulfa (Sulfonamide Allergy Unknown Verified 08/28/20 19:55 Antibiotics) - MEDICATIONS Home Medications: Ambulatory Orders Medication Instructions Recorded Confirmed Metoprolol Succinate [Toprol Xl] 100 mg PO DAILY 08/29/20 02/13/21 Rosuvastatin Calcium [Crestor] 10 mg PO DAILY 08/29/20 02/13/21 Aspirin [Aspirin EC] 81 mg PO DAILY 02/13/21 02/13/21 Ferrous Sulfate 325 mg PO DAILY 02/13/21 02/13/21 Multivitamin [Theragran] 1 each PO DAILY 02/13/21 02/13/21 Rabeprazole Sodium [Aciphex] 20 mg PO DAILY 02/13/21 02/13/21 Acetaminophen [Tylenol] 650 mg PO Q4HR PRN tablet 02/16/21 - PHYSICAL EXAM AT DISCHARGE General Appearance: positive: No acute distress Eyes Bilateral: positive: Normal inspection ENT: positive: ENT inspection nml Neck: positive: Nml inspection, Thyroid nml Respiratory: positive: Chest non-tender, No respiratory distress Cardiovascular: positive: Regular rate & rhythm, No murmur, No gallop Peripheral Pulses: positive: 2+ Abdomen: positive: Non-tender, No organomegaly, Nml bowel sounds, No distention Skin: positive: Color nml, No rash Extremities: positive: Non-tender, Full ROM, Nml appearance Neurologic/Psychiatric: positive: Oriented x3, CN's nml (2-12) - LABS Result Diagrams: 02/16/21 04:44 02/16/21 04:44 - DIAGNOSTIC IMAGING Diagnostic Imaging Results: Final report reviewed - FOLLOW UP Follow Up: Follow-up with PCP at the [facility] within 1 week - TIME SPENT Time Spent in Discharge (Minutes): 48
== END 2021-02-16 10:25 | disposition home or self-care (01) | DRG 640 ==
LOC: ED 15:53 → SUPCPDRO 15:53 → MS2 18:28
PROVIDERS: ADMIT Family Medicine Sports Medicine; ATTEND Family Medicine Sports Medicine
DX: E83.52 Hypercalcemia (principal); K85.90 Acute pancreatitis without necrosis or infection, unspecified; N17.9 Acute kidney failure, unspecified; T47.1X5A Adverse effect of other antacids and anti-gastric-secretion drugs, initial encounter; E78.1 Pure hyperglyceridemia; D72.829 Elevated white blood cell count, unspecified; F10.10 Alcohol abuse, uncomplicated; K21.9 Gastro-esophageal reflux disease without esophagitis; E86.0 Dehydration; I10 Essential (primary) hypertension; D50.9 Iron deficiency anemia, unspecified; M10.9 Gout, unspecified; E78.00 Pure hypercholesterolemia, unspecified; R35.1 Nocturia; G89.29 Other chronic pain; M54.9 Dorsalgia, unspecified; Z79.82 Long term (current) use of aspirin; Z79.899 Other long term (current) drug therapy
CPT/HCPCS: 0202U; 36415; 70450; 71045; 74176; 80048; 80053; 80076; 80306; 81003; 82140; 82150; 82306; 82330; 82803; 83519; 83690; 83735; 83970; 84100; 84484; 85025; 93005; 96374; 99283; 99285; A9270; 81001; 87086

== ENCOUNTER 2021-08-10 03:20 | Emergency (ER) | payer OTHER ==
[2021-08-10] MEDS ORDERED: KETOROLAC 60 MG/2 ML VIAL IM STA (03:54)
[2021-08-10] MEDS ORDERED: CHERRY SYRUP 10 ML UDC PO ONE (03:54)
[2021-08-10] MEDS ORDERED: DEXAMETHASONE 10 MG/ML VIAL PO STA (03:54)
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
[2021-08-10 04:31] VITALS: BP 152/82
== END 2021-08-10 04:36 | disposition home or self-care (01) ==
LOC: ED 03:20
DX: S39.012A Strain of muscle, fascia and tendon of lower back, initial encounter (principal); X50.0XXA Overexertion from strenuous movement or load, initial encounter; Y93.89 Activity, other specified; I10 Essential (primary) hypertension
CPT/HCPCS: 96372; 99283; 99284; A9270

== ENCOUNTER 2021-09-23 13:58 | Emergency (ER) | payer OTHER ==
--- NOTE | 2021-09-23 15:01 | ED Physician Documentation ---
PD HPI BACK PAIN - Stated complaint Stated Complaint: BACK PX - Chief complaint Chief Complaint: Back Pain - History obtained from History obtained from: Patient - History of Present Illness Timing - onset: How many weeks ago (6) Timing - duration: Weeks (6) Timing - details: Abrupt onset (onset when lifting a generator on 08/10/21 and has continued with the pain since, despite regular meds, massage, and chiropractic.), Still present Location: Lower (midline to right low back.) Quality: Pain, Spasm, Aching Associated symptoms: No: Fever, Weakness, Numbness, Incontinent of urine Worsened by: Movement, Twisting Contributing factors: Lifting Similar symptoms before: Has not had sx before Recently seen: Clinic, Emergency Dept (initially seen in ER with presumed muscular strain. Rx with meds. Seen by PCP and directed to get therapy. Rx some pain meds. 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 HEENT: None Psych: None Musculoskeletal: Gout, Chronic back pain Derm: None - Past Surgical History Past Surgical History: No General: Colonoscopy, EGD /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: Hysterectomy HEENT: Tonsil/Adenoidectomy - Present Medications Home Medications: Ambulatory Orders Medication Instructions Recorded Confirmed Metoprolol Succinate [Toprol Xl] 100 mg PO DAILY 08/29/20 09/23/21 Rosuvastatin Calcium [Crestor] 10 mg PO DAILY 08/29/20 09/23/21 Aspirin [Aspirin EC] 81 mg PO DAILY 02/13/21 09/23/21 Ferrous Sulfate 325 mg PO DAILY 02/13/21 09/23/21 Multivitamin [Theragran] 1 each PO DAILY 02/13/21 09/23/21 Acetaminophen [Tylenol] 650 mg PO Q4HR PRN tablet 02/16/21 09/23/21 Cyclobenzaprine [Flexeril] 10 mg PO TID PRN #20 tablet 08/10/21 09/23/21 HYDROcod/ACETAM 5/325 [[place] 5/325] 1 - 2 tablet PO Q6H PRN #14 tablet 08/10/21 09/23/21 Calcitonin [Fortical] 1 sprays AICHA DAILY #1 bottle 09/23/21 Docusate Sodium 100Mg Capsule 100 mg PO DAILY #20 cap 09/23/21 [Colace 100Mg Capsule] Lidocaine Patch 5% [Lidoderm Patch] 1 patch TOP DAILY PRN #10 patch 09/23/21 Meloxicam [Mobic] 7.5 mg PO BID 10 Days #20 tablet 09/23/21 Oxycodone HCl/Acetaminophen 1 each PO Q6H PRN #20 tablet 09/23/21 [Percocet 7.5-325 mg Tablet] - Allergies Allergies/Adverse Reactions: Allergies Allergy/AdvReac Type Severity Reaction Status Date / Time Sulfa (Sulfonamide Allergy Unknown Verified 09/23/21 14:16 Antibiotics) - Social History Does the pt smoke?: No Smoking Status: Former smoker Does the pt drink ETOH?: Yes ETOH Use: Liquor Does the pt have substance abuse?: No - Immunizations Immunizations are current?: No - POLST Patient has POLST: No POLST Status: Full Code PD ED PE NORMAL - Vitals Vital signs reviewed: Yes - General General: Alert and oriented X 3, Well developed/nourished, Other (appears very uncomfortable, guarded ROM of the low back. ) - Cardiac Cardiac: RRR, No murmur - Respiratory Respiratory: Clear bilaterally - Abdomen Abdomen: Soft, Non tender - Back Back: Other (tender midline upper lumbar to percussion and also in right lumbar muscles. ) - Derm Derm: Normal color, Warm and dry - Extremities Extremities: Normal ROM s pain - Neuro Neuro: Alert and oriented X 3, No motor deficit, No sensory deficit, Normal speech, Other (normal patellar reflexes. ) Results - Vitals Vitals: Oxygen O2 Source Room air - Labs Labs: Laboratory Tests 09/23/21 09/23/21 09/23/21 14:50 15:18 15:18 WBC 11.6 H RBC 3.31 L Hgb 10.8 L Hct 32.0 L MCV 96.7 MCH 32.6 H MCHC 33.8 RDW 12.9 Plt Count 235 MPV 9.5 Neut # (Auto) 7.8 H Lymph # (Auto) 2.4 Clay # (Auto) 0.9 Eos # (Auto) 0.2 Baso # (Auto) 0.1 Absolute Nucleated RBC 0.00 Nucleated RBC % 0.0 Sodium 124 L Potassium 3.8 Chloride 90 L Carbon Dioxide 22 Anion Gap 12.0 BUN 18 Creatinine 0.9 Estimated GFR (MDRD) 63 L Glucose 90 Calcium 8.8 Magnesium Total Bilirubin 0.6 AST 26 ALT 23 Alkaline Phosphatase 127 H Total Protein 7.4 Albumin 3.8 Globulin 3.6 Albumin/Globulin Ratio 1.1 Urine Color YELLOW Urine Clarity CLEAR Urine pH 6.0 Ur Specific Ashley <=1.005 Urine Protein NEGATIVE Urine Glucose (UA) NEGATIVE Urine Ketones NEGATIVE Urine Occult Blood NEGATIVE Urine Nitrite NEGATIVE Urine Bilirubin NEGATIVE Urine Urobilinogen 0.2 (NORMAL) Ur Leukocyte Esterase NEGATIVE Ur Microscopic Review NOT INDICATED Urine Culture Comments NOT INDICATED 09/23/21 15:18 WBC RBC Hgb Hct MCV MCH MCHC RDW Plt Count MPV Neut # (Auto) Lymph # (Auto) Clay # (Auto) Eos # (Auto) Baso # (Auto) Absolute Nucleated RBC Nucleated RBC % Sodium Potassium Chloride Carbon Dioxide Anion Gap BUN Creatinine Estimated GFR (MDRD) Glucose Calcium Magnesium 1.9 Total Bilirubin AST ALT Alkaline Phosphatase Total Protein Albumin Globulin Albumin/Globulin Ratio Urine Color Urine Clarity Urine pH Ur Specific Ashley Urine Protein Urine Glucose (UA) Urine Ketones Urine Occult Blood Urine Nitrite Urine Bilirubin Urine Urobilinogen Ur Leukocyte Esterase Ur Microscopic Review Urine Culture Comments - Rads (name of study) lumbar CT Radiology: Prelim report reviewed (L1 and L2 new compression fractures compared to January 2021. Mild healing c/w subacute. ), See rad report PD MEDICAL DECISION MAKING - ED course Complexity details: reviewed results (new lumbar compression fractures (prior CT January 2021 were not present then) with mild sclerosis so could be c/w the 6 week duration. ), considered differential (has had ongoing severe pain after lifting for 6 weeks. Treated as muscle strain but still hurts a lot. Consider other process and can get imaging. ), d/w patient Departure - Departure Disposition: 01 Home, Self Care Clinical Impression: Back pain Qualifiers: Back pain location: low back pain Chronicity: acute Back pain laterality: right Sciatica presence: without sciatica Qualified Code(s): M54.50 - Low back pain, unspecified Compression fx, lumbar spine Qualifiers: Encounter type: initial encounter Lumbar vertebra fracture level: unspecified lumbar vertebra Qualified Code(s): S32.000A - Wedge compression fracture of unspecified lumbar vertebra, initial encounter for closed fracture Condition: Stable Record reviewed to determine appropriate education?: Yes Instructions: ED Fx Comp Vertebral Follow-Up: RIGO MARCANO DO [Primary Care Provider] - Prescriptions: Docusate Sodium 100Mg Capsule [Colace 100Mg Capsule] 100 mg PO DAILY #20 cap Calcitonin [Fortical] 1 sprays AICHA DAILY #1 bottle Lidocaine Patch 5% [Lidoderm Patch] 1 patch TOP DAILY PRN #10 patch PRN Reason: pain Meloxicam [Mobic] 7.5 mg PO BID 10 Days #20 tablet Oxycodone HCl/Acetaminophen [Percocet 7.5-325 mg Tablet] 1 each PO Q6H PRN #20 tablet PRN Reason: Pain Comments: Your CT scan shows new (subacute) compression fractures at the first and second lumbar vertebrae. This would correspond with your pain onset about 6 weeks ago. Presumably had a compression fracture at the time of the lifting that has continued to hurt. We can try to improve on this with calcitonin nasal spray daily for the next few weeks. Also an anti-inflammatory meloxicam twice daily with food. To this add Tylenol every 6 hours if needed for pain or oxycodone if needed for worse pain. This is a different pain medicine than your previous prescription so hopefully works better for you. You will want to have a stool softener daily as well. You can also try lidocaine patches over the area that are hurting as there is some component of muscle spasms that sounds as well. I transmitted your prescriptions to the [facility]. I am prescribing a short course of narcotic pain medication for you. These are potentially dangerous and addictive medications that should be used carefully. These medications may constipate you. Take an [id number] stool softener such as docusate twice daily with plenty of water while taking these medications. If you go 24 hours without a bowel movement, take [id number] MiraLAX, per package instructions. Do not drink or drive while taking these medications. If you received narcotic or sedating medications while in the emergency department do not drive for 24 hours. Store this medication in a safe, secure place and out of reach of children. It is a violation of federal law to give or sell this medication to another person or to use in a manner other than prescribed. The ED will not refill narcotic prescriptions, including prescriptions lost or stolen. You can dispose of unwanted medications at the [facility]'s office or at several pharmacies such as [facility]. Discharge Date/Time: 09/23/21 18:26
[2021-09-23 15:12] LABS: BILIRUBIN,URINE NEGATIVE (NEGATIVE); GLUCOSE, URINE (UA) NEGATIVE (NEGATIVE); KETONES,URINE (UA) NEGATIVE (NEGATIVE); LEUKOCYTE ESTERASE, URINE NEGATIVE (NEGATIVE); NITRITE,URINE NEGATIVE (NEGATIVE); OCCULT BLOOD,URINE NEGATIVE (NEGATIVE); PROTEIN,URINE NEGATIVE (NEGATIVE); UROBILINOGEN,URINE 0.2 (NORMAL) E.U./dL (NORMAL)
[2021-09-23 15:17] LABS: CLARITY,URINE CLEAR (CLEAR)
[2021-09-23 15:24] LABS: BASOPHILS # (AUTO) 0.1 10^3/uL (0.0-0.1); BASOPHILS % (AUTO) 0.9 %; EOSINOPHILS # (AUTO) 0.2 10^3/uL (0.0-0.7); EOSINOPHILS % (AUTO) 1.4 %; HGB - HEMOGLOBIN 10.8 g/dL (12.0-16.0); LYMPHOCYTES # (AUTO) 2.4 10^3/uL (1.5-3.5); LYMPHOCYTES % (AUTO) 20.7 %; MEAN CORPUSCULAR HEMOGLOBIN 32.6 pg (27.0-31.0); MEAN CORPUSCULAR HGB CONC 33.8 g/dL (32.0-36.0); MEAN CORPUSCULAR VOLUME 96.7 fL (81.0-99.0); MEAN PLATELET VOLUME 9.5 fL (7.9-10.8); MONOCYTES # (AUTO) 0.9 10^3/uL (0.0-1.0); NEUTROPHILS # (AUTO) 7.8 10^3/uL (1.5-6.6); NEUTROPHILS % (AUTO) 67.7 %; PLT - PLATELET COUNT 235 10^3/uL (130-450); RED BLOOD COUNT 3.31 10^6/uL (4.20-5.40); RED CELL DISTRIBUTION WIDTH 12.9 % (12.0-15.0); WHITE BLOOD COUNT 11.6 x10^3/uL (4.8-10.8)
[2021-09-23 15:35] LABS: ALBUMIN 3.8 g/dL (3.2-5.5); ALBUMIN/GLOBULIN RATIO 1.1 (1.0-2.2); BILIRUBIN,TOTAL 0.6 mg/dL (0.2-1.0); CALCIUM 8.8 mg/dL (8.5-10.3); CREATININE 0.9 mg/dL (0.4-1.0); POTASSIUM 3.8 mmol/L (3.5-5.0); TOTAL PROTEIN 7.4 g/dL (6.7-8.2)
[2021-09-23] MEDS ORDERED: KETOROLAC 30 MG/ML VIAL IVP STA (15:35)
[2021-09-23] MEDS ORDERED: HYDROmorphone 1 MG/ML CARPUJECT IVP STA (15:35)
[2021-09-23] MEDS ORDERED: SODIUM CHLORIDE 0.9% 1,000 ML IV STA (15:35)
[2021-09-23] MEDS ORDERED: IOVERSOL 320 100 ML VIAL IVP ONE ×2 (16:02→16:26)
--- NOTE | 2021-09-23 17:00 | CT Report ---
PROCEDURE: CT abdomen and pelvis with contrast INDICATIONS: right back pain for 6 weeks. CONTRAST: IV CONTRAST: Optiray 320 ml: 100 PO CONTRAST: *NO PO CONTRAST TECHNIQUE: After the administration of contrast, 5 mm thick sections acquired from the diaphragms to the sym physis. 5 mm thick coronal and sagittal reformats were acquired. For radiation dose reduction, the following was used: automated exposure control, adjustment of mA and/or kV according to patient size . COMPARISON: 02/13/2021 FINDINGS: Image quality: Excellent. ABDOMEN: Lung bases: Lung bases are clear. Heart size is normal. Solid organs: Liver is diffusely decreased attenuation consistent with hepatic fatty infiltration. G allbladder unremarkable Biliary system is non dilated. Pancreas enhances normally. No adrenal nodul es. Kidneys demonstrate normal size and enhancement, without hydronephrosis. Peritoneum and bowel: Bowel loops demonstrate normal wall thickness and caliber. No free fluid or a ir. Moderate fecal debris throughout the colon noted particularly in the right colon. Normal appendi x identified. Nodes and vessels: No retroperitoneal or mesenteric adenopathy by size criteria. Aorta and inferior vena cava are normal in size. Miscellaneous: No ventral hernias. PELVIS: Genitourinary: Bladder wall thickness is normal. Miscellaneous: No inguinal hernias or adenopathy. Bones: T11 wedge-shaped compression fracture is stable. There are now new wedge-shaped compression fr actures involving T12, L1 and L2. Small retropulsed fracture fragment at L1 results in moderate centr al stenosis. IMPRESSION: 1. New compression fractures at T12, L1 and L2. Small retropulsed fracture fragment L1 results in mod erate central stenosis. Stable T11 compression fracture. 2. Moderate fecal debris to the right and transverse colon without obstruction. 3. Hepatic fatty infiltration, stable. Reviewed by: Richard Hickman MD on 09/23/2021 3:59 PM [facility] Approved by: Richard Hickman MD on 09/23/2021 3:59 PM [facility] Station ID: [id number]
[2021-09-23 17:23] VITALS: BP 155/96
[2021-09-23] MEDS ORDERED: oxyCODONE/ACET 5/325 Prepack 4 PO STA (17:50)
== END 2021-09-23 18:26 | disposition home or self-care (01) ==
LOC: ED 13:58
DX: S32.000A Wedge compression fracture of unspecified lumbar vertebra, initial encounter for closed fracture (principal); X50.0XXA Overexertion from strenuous movement or load, initial encounter; Y93.89 Activity, other specified; Z87.891 Personal history of nicotine dependence
CPT/HCPCS: 36415; 51798; 74177; 80053; 81003; 83735; 85025; 96374; 96375; 99284; J1170; Q9967; 81001; 87086

== ENCOUNTER 2022-07-22 10:48 | Outpatient (CLI) | payer OTHER ==
--- NOTE | 2022-07-23 11:54 | Mammography Report ---
BILATERAL DIGITAL SCREENING MAMMOGRAM 3D/2D: 07/22/2022 CLINICAL: Routine screening. Comparison is made to exams dated: 02/08/2019 mammogram, 10/23/2017 mammogram, and 06/26/2016 mammogram - [facility]. Both breasts are almost entirely fatty (category a/<25% glandular tissue). No significant masses, calcifications, or other findings are seen in either breast. There has been no significant interval change. IMPRESSION: NEGATIVE There is no mammographic evidence of malignancy. A 1 year screening mammogram is recommended. Based on the Tyrer Cuzick model (a risk assessment model) the patients lifetime risk is 2.9% and her 10 year risk is 1.3%. According to the ACR, ACS, and NCCN guidelines, an annual breast MRI exam geraldo g with mammogram is recommended if the patients lifetime risk is 20% or greater. This exam was interpreted at Station ID: [id number]. NOTE: For mammograms, a report in lay terms will be sent to the patient. Approximately 15% of breast malignancies will not be visualized mammographically. In the management of a palpable breast mass, a negative mammogram must not discourage biopsy of a clinically suspicious lesion. Electronically Signed By: Alexandria [email or web address]/[email or web address]:07/22/2022 16:55:15 ACR BI-RADS Category 1: Negative 3341F PARENCHYMAL PATTERN: (F) - The breast(s) demonstrate(s) diffuse fatty replacement. BI-RADS CATEGORY: (1) - 1 RECOMMENDATION: (ANNUAL) - Recommend routine annual screening mammography. [id number] 1 year screening LATERALITY: (B)
== END 2022-07-22 10:49 | disposition home or self-care (01) ==
LOC: DI.S 10:48
PROVIDERS: ATTEND Nurse Practitioner
DX: Z12.31 Encounter for screening mammogram for malignant neoplasm of breast (principal)

== ENCOUNTER 2022-09-21 08:59 | Emergency (ER) | payer OTHER ==
--- NOTE | 2022-09-21 09:25 | ED Physician Documentation ---
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 ADMINISTRATOR: Hysterectomy HEENT: Tonsil/Adenoidectomy - Present Medications Home Medications: Ambulatory Orders Medication Instructions Recorded Confirmed Metoprolol Succinate [Toprol Xl] 100 mg PO DAILY 08/29/20 09/23/21 Rosuvastatin Calcium [Crestor] 10 mg PO DAILY 08/29/20 09/23/21 Aspirin [Aspirin EC] 81 mg PO DAILY 02/13/21 09/23/21 Ferrous Sulfate 325 mg PO DAILY 02/13/21 09/23/21 Multivitamin [Theragran] 1 each PO DAILY 02/13/21 09/23/21 Acetaminophen [Tylenol] 650 mg PO Q4HR PRN tablet 02/16/21 09/23/21 Cyclobenzaprine [Flexeril] 10 mg PO TID PRN #20 tablet 08/10/21 09/23/21 HYDROcod/ACETAM 5/325 [[place] 5/325] 1 - 2 tablet PO Q6H PRN #14 tablet 08/10/21 09/23/21 Calcitonin [Fortical] 1 sprays AICHA DAILY #1 bottle 09/23/21 Docusate Sodium 100Mg Capsule 100 mg PO DAILY #20 cap 09/23/21 [Colace 100Mg Capsule] Lidocaine Patch 5% [Lidoderm Patch] 1 patch TOP DAILY PRN #10 patch 09/23/21 Meloxicam [Mobic] 7.5 mg PO BID 10 Days #20 tablet 09/23/21 Oxycodone HCl/Acetaminophen 1 each PO Q6H PRN #20 tablet 09/23/21 [Percocet 7.5-325 mg Tablet] - Allergies Allergies/Adverse Reactions: Allergies Allergy/AdvReac Type Severity Reaction Status Date / Time Sulfa (Sulfonamide Allergy Unknown Verified 09/21/22 09:08 Antibiotics) - Social History Does the pt smoke?: No Smoking Status: Former smoker Does the pt drink ETOH?: Yes Does the pt have substance abuse?: No - Immunizations Immunizations are current?: No - POLST Patient has POLST: No POLST Status: Full Code Results - Vitals Vitals: Vital Signs - 24 hr 09/21/22 09:04 Temperature 36.7 C Heart Rate 122 H Respiratory 24 Rate Blood Pressure 163/97 H O2 Saturation 98 Oxygen O2 Source Room air
[2022-09-21 09:33] LABS: BASOPHILS # (AUTO) 0.1 10^3/uL (0.0-0.1); BASOPHILS % (AUTO) 0.6 %; EOSINOPHILS % (AUTO) 0.1 %; HCT - HEMATOCRIT 34.7 % (37.0-47.0); HGB - HEMOGLOBIN 11.9 g/dL (12.0-16.0); LYMPHOCYTES % (AUTO) 8.4 %; MEAN CORPUSCULAR HEMOGLOBIN 33.6 pg (27.0-31.0); MEAN CORPUSCULAR HGB CONC 34.3 g/dL (32.0-36.0); MEAN PLATELET VOLUME 10.5 fL (7.9-10.8); MONOCYTES # (AUTO) 1.3 10^3/uL (0.0-1.0); MONOCYTES % (AUTO) 10.5 %; NEUTROPHILS # (AUTO) 9.9 10^3/uL (1.5-6.6); PLT - PLATELET COUNT 194 10^3/uL (130-450); RED BLOOD COUNT 3.54 10^6/uL (4.20-5.40); RED CELL DISTRIBUTION WIDTH 13.2 % (12.0-15.0); WHITE BLOOD COUNT 12.3 x10^3/uL (4.8-10.8)
--- NOTE | 2022-09-21 09:33 | XRAY Report ---
PROCEDURE: Chest 1 View X-Ray INDICATIONS: Chest pain TECHNIQUE: One view of the chest was acquired. COMPARISON: 02/13/2021, 08/28/2020. Correlation is also made with chest CT, 08/28/2020 FINDINGS: Surgical changes and devices: None. Lungs and pleura: No pleural effusions or pneumothorax. Lungs are clear. Mediastinum: Mediastinal contours appear normal. Heart size is normal. Bones and chest wall: No suspicious bony lesions. Age-appropriate degenerative changes are seen. O verlying soft tissues appear unremarkable. IMPRESSION: Portable chest within normal limits for age. Reviewed by: Buck Johnson MD on 09/21/2022 8:[address] [facility] Approved by: Buck Johnson MD on 09/21/2022 8:[address] [facility] Station ID: [id number]
[2022-09-21 10:03] LABS: ALBUMIN 3.3 g/dL (3.2-5.5); ALBUMIN/GLOBULIN RATIO 0.8 (1.0-2.2); BILIRUBIN,TOTAL 2.3 mg/dL (0.2-1.0); CALCIUM 8.8 mg/dL (8.5-10.3); CREATININE 0.8 mg/dL (0.4-1.0); POTASSIUM 3.6 mmol/L (3.5-5.0); TOTAL PROTEIN 7.4 g/dL (6.7-8.2)
[2022-09-21] MEDS ORDERED: ALBUTEROL NEB 2.5 MG/3 ML INH STA (10:25)
[2022-09-21] MEDS ORDERED: DEXAMETHASONE 10 MG/ML VIAL IVP STA (10:25)
[2022-09-21] MEDS ORDERED: iohexoL-300 100 ML VIAL ONE (10:26)
[2022-09-21] MEDS ORDERED: iohexoL-300 100 ML VIAL IVP ONE (11:05)
--- NOTE | 2022-09-21 11:07 | CT Report ---
PROCEDURE: ANGIO CHEST W/WO INDICATIONS: dyspnea/tachycardia CONTRAST: 80ml omni 300 TECHNIQUE: After the administration of intravenous contrast, 2 mm axial images were acquired from the pulmonary apices to the posterior costophrenic angles during the arterial phase. In addition, 1 mm lung kernel and 5 mm soft tissue kernel reconstructions were performed. 3-dimensional coronal oblique maximum int ensity projection (MIP) reformats, 8 mm axial MIP, and 5 mm coronal and sagittal MPR reformats were t hen performed through the thorax. For radiation dose reduction, the following was used: automated exp osure control, adjustment of mA and/or kV according to patient size. COMPARISON: Correlation is made with chest radiograph, 09/21/2022. Prior chest CT, 08/28/2020. FINDINGS: Image quality: Motion artifact is noted. Pulmonary arteries: Pulmonary arteries are normal in size, and demonstrate no intraluminal filling d efects to suggest central pulmonary embolism. Lungs and pleura: No consolidative infiltrates can be seen. Generalized minimal interstitial prominen ce can be seen. No pleural effusions or pneumothorax. Central and peripheral airways are patent. Mediastinum: Heart size is normal, without pericardial effusion. No mediastinal or hilar adenopathy . Thoracic aorta is normal in caliber and enhancement. Esophagus is normal in caliber, without hiat al hernia. Bones and chest wall: No suspicious bony lesions. Chronic appearing anterior wedge deformities can b e seen at T9, T11, T12, L1, and L2. No axillary or supraclavicular adenopathy. The thyroid is normal in size and there are no incidental findings. Abdomen: There is an enlarged, fatty liver. The visualized portions of the upper abdominal structures are otherwise within normal limits. IMPRESSION: Motion limited study demonstrating no findings of pulmonary embolism. The lungs demonstrate mild generalized interstitial prominence. Please consider mild pulmonary edema versus atypical infiltrate. Several levels of compression deformity can be seen, which are new compared to 2020. Please correlate with patient history. Additional findings: Enlarged, fatty liver Reviewed by: Buck Johnson MD on 09/21/2022 10:06 AM [facility] Approved by: Buck Johnson MD on 09/21/2022 10:06 AM [facility] Station ID: [id number]
[2022-09-21 11:20] LABS: B. PARAPERTUSSIS- RESP PCR PAN NOT DETECTED; B. PERTUSSIS- RESP PCR PANEL NOT DETECTED; C. PNEUMONIAE- RESP PCR PANEL NOT DETECTED; CORONAVIRUS 229E-RESP PCR NOT DETECTED; CORONAVIRUS HKU1-RESP PCR NOT DETECTED; CORONAVIRUS NL63-RESP PCR NOT DETECTED; CORONAVIRUS OC43-RESP PCR NOT DETECTED; HUMAN METAPNEUMOVIRUS NOT DETECTED; INFLUENZA A- RESP PCR PANEL NOT DETECTED; INFLUENZA B - RESP PCR PANEL NOT DETECTED; M. PNEUMONIAE- RESP PCR PANEL NOT DETECTED; PARAINFLUENZA VIRUS 1 NOT DETECTED; PARAINFLUENZA VIRUS 2 NOT DETECTED; PARAINFLUENZA VIRUS 3 NOT DETECTED; PARAINFLUENZA VIRUS 4 NOT DETECTED; RHINOVIRUS/ENTEROVIRUS NOT DETECTED; RSV- RESP PCR PANEL NOT DETECTED; SARS-CoV-2 -RESP PCR PANEL NOT DETECTED
[2022-09-21] MEDS ORDERED: DOXYCYCLINE 100 MG TABLET PO STA (12:20)
[2022-09-21] MEDS ORDERED: METOPROLOL 5 MG/5 ML VIAL IVP STA (12:21)
[2022-09-21 12:38] VITALS: BP 160/100
== END 2022-09-21 12:50 | disposition home or self-care (01) ==
LOC: ED 08:59
DX: J18.9 Pneumonia, unspecified organism (principal); I10 Essential (primary) hypertension; Z87.891 Personal history of nicotine dependence; Z20.822 Contact with and (suspected) exposure to COVID-19
CPT/HCPCS: 36415; 71045; 71275; 80053; 83690; 83880; 84484; 85025; 85379; 87633; 93005; 94640; 94664; 96374; 96375; 99283; 99284; A9270; Q9967

== ENCOUNTER 2022-12-04 19:17 | Inpatient (IN) | payer MEDICARE, OTHER ==
[2022-12-04 19:38] LABS: BASOPHILS # (AUTO) 0.1 10^3/uL (0.0-0.1); BASOPHILS % (AUTO) 1.3 %; EOSINOPHILS # (AUTO) 0.2 10^3/uL (0.0-0.7); EOSINOPHILS % (AUTO) 2.2 %; HCT - HEMATOCRIT 32.9 % (37.0-47.0); HGB - HEMOGLOBIN 11.3 g/dL (12.0-16.0); LYMPHOCYTES # (AUTO) 1.2 10^3/uL (1.5-3.5); LYMPHOCYTES % (AUTO) 11.2 %; MEAN CORPUSCULAR HEMOGLOBIN 32.6 pg (27.0-31.0); MEAN CORPUSCULAR HGB CONC 34.3 g/dL (32.0-36.0); MEAN CORPUSCULAR VOLUME 94.8 fL (81.0-99.0); MEAN PLATELET VOLUME 9.9 fL (7.9-10.8); MONOCYTES # (AUTO) 1.5 10^3/uL (0.0-1.0); MONOCYTES % (AUTO) 13.2 %; NEUTROPHILS # (AUTO) 7.8 10^3/uL (1.5-6.6); NEUTROPHILS % (AUTO) 70.6 %; PLT - PLATELET COUNT 242 10^3/uL (130-450); RED BLOOD COUNT 3.47 10^6/uL (4.20-5.40); RED CELL DISTRIBUTION WIDTH 14.3 % (12.0-15.0); WHITE BLOOD COUNT 11.1 x10^3/uL (4.8-10.8)
[2022-12-04 19:56] LABS: ALBUMIN 3.3 g/dL (3.2-5.5); BILIRUBIN,TOTAL 3.7 mg/dL (0.2-1.0); CALCIUM 7.8 mg/dL (8.5-10.3); CREATININE 0.9 mg/dL (0.4-1.0); POTASSIUM 4.6 mmol/L (3.5-5.0); TOTAL PROTEIN 6.7 g/dL (6.7-8.2)
--- NOTE | 2022-12-04 20:05 | ED Physician Documentation ---
History of Present Illness - Stated complaint Stated Complaint: BOTH LEGS SWOLLEN - Chief complaint Chief Complaint: Cardiac - History obtained from History obtained from: Patient, Family - Additonal information Additional information: Patient presents for chief complaint of bilateral lower extremity edema. She says this problem initially began a few weeks ago, significantly improved without specific intervention but has reoccurred and steadily worsened over the past several days. The patient was treated and released from this emergency department in August 2022 for shortness of breath. Patient was discharged provided with several prescriptions including doxycycline for possible pneumonia on chest x-ray and CTA of the chest, as well as albuterol MDI, metoprolol, and Decadron. Patient says she followed up with her primary care provider in late September. At that time she was prescribed Zithromax as well as Lasix. Patient says this was the first time she had ever been prescribed a diuretic. Patient says the reason for the diuretic prescription was she had developed bilateral ankle swelling. Patient says she has never had any leg swelling in the past, and that she did not have any leg swelling when she was evaluated in the emergency department in August. Patient says she is she was referred to a lieutenant governor whom she saw in October 23 (Dr. Chua). She says that the lieutenant governor performed an echo in the office and there was some "fluid around my heart" (per patient); she says she was prescribed colchicine for this and was told to stop the Lasix. She says that she followed up with a lieutenant governor again last week, and, at that time, a repeat echocardiogram performed in the office showed resolution of the fluid that was seen on the first study. She was given a new prescription for colchicine and is to be on this medication for several more weeks. Patient says both of her legs are tender to the touch and she has had increasing pain with ambulation, but no significant discomfort at rest. Part of her chief concern is that it has become very painful to ambulate. Review of Systems Constitutional: denies: Fever, Chills Cardiac: reports: Pedal edema. denies: Chest pain / pressure, Palpitations Respiratory: denies: Dyspnea, Cough GI: reports: Abdominal Swelling ("maybe a little swollen" (per patient regarding her abdomen)). denies: Abdominal Pain, Nausea, Vomiting, Constipation, Diarrhea, Hematemesis, Bloody / black stool : denies: Dysuria, Frequency Musculoskeletal: reports: Extremity pain (BLE pain with palpation , ambulation, but not at rest), Extremity swelling, Pain with weight bearing. denies: Back pain Neurologic: denies: Focal weakness, Numbness PD PAST MEDICAL HISTORY - Past Medical History Cardiovascular: Hypertension, High cholesterol Respiratory: Asthma Neuro: None Endocrine/Autoimmune: None GI: GERD KILN TENDER: None : Nocturia HEENT: None Psych: None Musculoskeletal: Gout, Chronic back pain Derm: None - Past Surgical History Past Surgical History: No General: Colonoscopy, EGD /KILN TENDER: Hysterectomy HEENT: Tonsil/Adenoidectomy - Present Medications Home Medications: Ambulatory Orders Medication Instructions Recorded Confirmed Metoprolol Succinate [Toprol Xl] 100 mg PO DAILY 08/29/20 09/23/21 Rosuvastatin Calcium [Crestor] 10 mg PO DAILY 08/29/20 09/23/21 Aspirin [Aspirin EC] 81 mg PO DAILY 02/13/21 09/23/21 Ferrous Sulfate 325 mg PO DAILY 02/13/21 09/23/21 Multivitamin [Theragran] 1 each PO DAILY 02/13/21 09/23/21 Acetaminophen [Tylenol] 650 mg PO Q4HR PRN tablet 02/16/21 09/23/21 Cyclobenzaprine [Flexeril] 10 mg PO TID PRN #20 tablet 08/10/21 09/23/21 HYDROcod/ACETAM 5/325 [[place] 5/325] 1 - 2 tablet PO Q6H PRN #14 tablet 08/10/21 09/23/21 Calcitonin [Fortical] 1 sprays AICHA DAILY #1 bottle 09/23/21 Docusate Sodium 100Mg Capsule 100 mg PO DAILY #20 cap 09/23/21 [Colace 100Mg Capsule] Lidocaine Patch 5% [Lidoderm Patch] 1 patch TOP DAILY PRN #10 patch 09/23/21 Meloxicam [Mobic] 7.5 mg PO BID 10 Days #20 tablet 09/23/21 Oxycodone HCl/Acetaminophen 1 each PO Q6H PRN #20 tablet 09/23/21 [Percocet 7.5-325 mg Tablet] Albuterol Sulf [Ventolin Hfa 3 puffs INH QID 30 Days #1 each 09/21/22 Inhaler] Doxycycline Hyclate 100 mg PO BID 7 Days #14 cap 09/21/22 Fluticasone Propion/Salmeterol 1 each IH BID 30 Days #1 each 09/21/22 [Fluticasone-Salmeterol 250-50] Metoprolol Succinate [Toprol Xl] 25 mg PO DAILY 30 Days #30 tablet 09/21/22 dexAMETHasone [Decadron] 4 mg PO DAILY #6 tablet 09/21/22 - Allergies Allergies/Adverse Reactions: Allergies Allergy/AdvReac Type Severity Reaction Status Date / Time Sulfa (Sulfonamide Allergy Unknown Verified 09/21/22 09:08 Antibiotics) - Social History Does the pt smoke?: No Smoking Status: Former smoker Does the pt drink ETOH?: Yes Does the pt have substance abuse?: No - Immunizations Immunizations are current?: No - POLST Patient has POLST: No POLST Status: Full Code PD ED PE NORMAL - Vitals Vital signs reviewed: Yes - General General: Alert and oriented X 3, No acute distress, Well developed/nourished - HEENT HEENT: PERRL - Neck Neck: Supple, no meningeal sign - Respiratory Respiratory: Clear bilaterally, Other (tachypneic but speakingin full sentences and no increased WOB, denies dyspnea) - Abdomen Abdomen: Soft, Non tender, Non distended PD ED PE EXPANDED - Cardiac Cardiac: Tachy, Regular Rhythm (occasional extra beats that correlate with PVCs on bus monitor). No: Murmur Present - Extremities Extremities: Pedal edema bilateral (3+BLE pitting edema from toes to proximal thighs. there is mild pitting edema noted across her lower back as well), Pedal Pulses Present, Other (bilateral pre-tibial confluent erythema. a few clear, small bullae noted bilaterally) Results - Vitals Vitals: Vital Signs - 24 hr 12/04/22 12/04/22 12/04/22 19:19 21:00 21:24 Temperature 36.3 C L Heart Rate 116 H 93 113 H Respiratory 32 H 16 15 Rate Blood Pressure 155/86 H 129/77 150/84 H O2 Saturation 100 100 96 Oxygen O2 Source Room air - EKG (time done) No standard instances EKG releavant findings:: EKG personally interpreted by author of this note. Relevant findings are: Rate: Rate (enter#) (91) Rhythm: NSR [place]: LAD Intervals: Normal ID QRS: Normal Ischemia: Normal ST segments, Q waves (II, III, V3-V6) Compare to prior EKG: Unchanged from prior EKG (no significant change vs 09/21/22) - Labs Labs: Laboratory Tests 12/04/22 12/04/22 12/04/22 19:35 19:35 19:35 WBC 11.1 H RBC 3.47 L Hgb 11.3 L Hct 32.9 L MCV 94.8 MCH 32.6 H MCHC 34.3 RDW 14.3 Plt Count 242 MPV 9.9 Neut # (Auto) 7.8 H Lymph # (Auto) 1.2 L [place] # (Auto) 1.5 H Eos # (Auto) 0.2 Baso # (Auto) 0.1 Absolute Nucleated RBC 0.00 Nucleated RBC % 0.0 Sodium 116 L* Potassium 4.6 Chloride 77 L* Carbon Dioxide 24 Anion Gap 15.0 H BUN 7 Creatinine 0.9 Estimated GFR (MDRD) 63 L Glucose 103 H Calcium 7.8 L Magnesium 1.0 L* Total Bilirubin 3.7 H AST 178 H ALT 101 H Alkaline Phosphatase 451 H B-Natriuretic Peptide 136 H Total Protein 6.7 Albumin 3.3 Globulin 3.4 Albumin/Globulin Ratio 1.0 TSH 12/04/22 19:35 WBC RBC Hgb Hct MCV MCH MCHC RDW Plt Count MPV Neut # (Auto) Lymph # (Auto) [place] # (Auto) Eos # (Auto) Baso # (Auto) Absolute Nucleated RBC Nucleated RBC % Sodium Potassium Chloride Carbon Dioxide Anion Gap BUN Creatinine Estimated GFR (MDRD) Glucose Calcium Magnesium Total Bilirubin AST ALT Alkaline Phosphatase B-Natriuretic Peptide Total Protein Albumin Globulin Albumin/Globulin Ratio TSH 3.99 PD Medical Decision Making - ED course Complexity details: reviewed old records, reviewed results, re-evaluated patient, considered differential, d/w patient, d/w family ED course: Patient denies chest pain, abdominal pain. She has no abdominal tenderness on exam. She says she feels slightly distended in the abdomen although she does not appear grossly distended to me. She does have obvious and significant bilateral lower extremity pitting edema, with the edema extending to her lower back as evidenced by mild pitting. Her lungs are clear to auscultation bilaterally on exam, she has a normal pulse ox on room air; she is noted to be mildly tachypneic during her ED stay. Abnormalities on tonight's testing are most notable for hyponatremia with a s odium level of 116, as well as abnormal liver function tests (bilirubin 3.7, AST 178, ALT 101, and alkaline phosphatase 451). Her BNP is minimally elevated at 136, as is her high-sensitivity troponin (17.2). Her magnesium is 1.0. When the patient was evaluated in this emergency department in August of this year, her liver function tests were elevated but to a lesser extent than tonight's results. The patient admits to drinking alcohol on a heavy and regular basis. She tells me she drinks 4 glasses of wine daily, although a discharge summary from [facility] in 2020 indicates that at that time, she said she was drinking a bottle and a half of wine every day for several years. Per the patient, as well as per her records, there is no documented history of cirrhosis nor ascites. A CT scan in 2020 did evidence hepatomegaly. I discussed this case with the telehealth physician and he accepts the patient to the hospitalist service. The initial plan, for which the telehealth physician wrote orders, was to admit to the ICU overnight due to the extent of the hyponatremia. Unfortunately, shortly after this plan was in place and the telehealth physician put the orders into the computer, I was then informed that the ICU bed was no longer available, as it was needed for a postoperative patient. There are also no medical/surgical beds available at [facility] at this time. I discussed this with the patient and the spouse, offering to contact other hospitals to inquire about bed availability; should a bed be available, the patient would then be transferred by ambulance. Aside from bed availability, I did not feel the patient would require nor otherwise benefit from transfer to another facility; I feel that the patient can be held in the emergency department overnight with anticipation of likely bed availability in the morning, and the patient agrees with this plan. I initially ordered a liter of normal saline to be given over 2 hours, but the telehealth physician recommends that I cancel this order (and I did so prior to the initiation of the normal saline); his recommendation is fluid restriction except for hypertonic saline. We also discussed IV magnesium, and I ordered 2 g of magnesium sulfate to be given intravenously. I subsequently noted that the telehealth physician also ordered 2 g of magnesium sulfate IV, and I canceled his order as a repeat magnesium after the 2 g were given showed that her magnesium level had improved to 1.8. Additionally, there was a problem obtaining the hypertonic saline for the emergency department due to the order being scheduled (rather than stat), and thus I canceled the telehealth physician's order and entered a stat order for the same amount and rate as the telehealth physician had ordered (500 cc of 3% hypertonic saline to be given at 50 ml/hour). During the overnight shift, her repeat sodium levels were 118, and then a few hours later again 118, and towards the end of my shift, the sodium level had improved to 121. After this last sodium level resulted, I canceled the remainder of the hypertonic saline order. I also ordered 40 mg of furosemide IV early in her stay which she received. Departure - Departure Disposition: [facility] DC/Xfer Clinical Impression: Hyponatremia, Edema of both lower legs, Abnormal liver function tests Condition: Stable Discharge Date/Time: 12/05/22 08:53
[2022-12-04] MEDS ORDERED: SODIUM CHLORIDE 0.9% 1,000 ML IV STA (20:35)
[2022-12-04] MEDS ORDERED: FUROSEMIDE 40 MG/4 ML VIAL IVP STA (20:40)
[2022-12-04] MEDS ORDERED: MAGNESIUM SULFATE 2 GRAM 2 GM/50 ML BAG IV STA (21:07)
[2022-12-04] MEDS ORDERED: IBUPROFEN 400 MG TABLET PO PRN (21:28)
[2022-12-04] MEDS ORDERED: ONDANSETRON 4 MG/2 ML VIAL IVP PRN (21:28)
[2022-12-04] MEDS ORDERED: TEMAZEPAM 15 MG CAPSULE PO PRN (21:28)
--- NOTE | 2022-12-04 21:41 | HISTORY & PHYSICAL EXAMINATION ---
Chief Complaint - Chief Complaint Chief Complaint: Lower ext swelling History of Present Illness - Admitted From Admitted From:: Home - History Obtained From Records Reviewed: Yes History obtained from: Patient, , ER MD Exam Limitations: Telemedicine - History of Present Illness HPI Comment/Other: 67 yr woman with multiple medical problems as described comes in with complaints of worsening leg edema, patient had PNA in last week of Aug, also had pericardial effusion was on colchicine, also has swelling in past but they disappeared, does admit to drinking EOTH daily 4-5 glasses of wine, no hx of falls, no fever,no chills, no hx of thyroid disease no hx of cortisol def, no neuro complaints, clincally feels ok except for feeling tired, saw her primary cards last friday was told echo looks good, pericardial effusion resolved, Patient NA in er is 116, no other complaints, would repeat NA and would admit to telemetry for close monitoring based on my discussion with ER MD. 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 Denies a family history of cardiac disease, cancer. Living Situation: With spouse/s.o. Social History Notes: She lives at home with her , Paramjit. 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 She denies any smoking but does admit to drinking a bottle and a half of wine a day for quite a few years now. Denies any illicit drug use. - POLST Patient has POLST: No POLST Status: Full Code Meds/Allgy - Home Medications Home Medications: Ambulatory Orders Medication Instructions Recorded Confirmed Metoprolol Succinate [Toprol Xl] 100 mg PO DAILY 08/29/20 09/23/21 Rosuvastatin Calcium [Crestor] 10 mg PO DAILY 08/29/20 09/23/21 Aspirin [Aspirin EC] 81 mg PO DAILY 02/13/21 09/23/21 Ferrous Sulfate 325 mg PO DAILY 02/13/21 09/23/21 Multivitamin [Theragran] 1 each PO DAILY 02/13/21 09/23/21 Acetaminophen [Tylenol] 650 mg PO Q4HR PRN tablet 02/16/21 09/23/21 Cyclobenzaprine [Flexeril] 10 mg PO TID PRN #20 tablet 08/10/21 09/23/21 HYDROcod/ACETAM 5/325 [[place] 5/325] 1 - 2 tablet PO Q6H PRN #14 tablet 08/10/21 09/23/21 Calcitonin [Fortical] 1 sprays AICHA DAILY #1 bottle 09/23/21 Docusate Sodium 100Mg Capsule 100 mg PO DAILY #20 cap 09/23/21 [Colace 100Mg Capsule] Lidocaine Patch 5% [Lidoderm Patch] 1 patch TOP DAILY PRN #10 patch 09/23/21 Meloxicam [Mobic] 7.5 mg PO BID 10 Days #20 tablet 09/23/21 Oxycodone HCl/Acetaminophen 1 each PO Q6H PRN #20 tablet 09/23/21 [Percocet 7.5-325 mg Tablet] Albuterol Sulf [Ventolin Hfa 3 puffs INH QID 30 Days #1 each 09/21/22 Inhaler] Doxycycline Hyclate 100 mg PO BID 7 Days #14 cap 09/21/22 Fluticasone Propion/Salmeterol 1 each IH BID 30 Days #1 each 09/21/22 [Fluticasone-Salmeterol 250-50] Metoprolol Succinate [Toprol Xl] 25 mg PO DAILY 30 Days #30 tablet 09/21/22 dexAMETHasone [Decadron] 4 mg PO DAILY #6 tablet 09/21/22 - Allergies Allergies/Adverse Reactions: Allergies Allergy/AdvReac Type Severity Reaction Status Date / Time Sulfa (Sulfonamide Allergy Unknown Verified 09/21/22 09:08 Antibiotics) Review of Systems - Constitutional Constitutional: reports: Weakness - Respiratory Respiratory: reports: SOB with exertion - Musculoskeletal Musculoskeletal: reports: Other (+3-4 edema in lower ext) Prior Level of Functionality: Indpendent with ADL Exam - Vital Signs Vital Signs: Vital Signs x48h Temp Pulse Resp BP Pulse Ox 12/04/22 19:19 36.3 C L 116 H 32 H 155/86 H 100 - Physical Exam General Appearance: positive: No acute distress, Alert Eyes Bilateral: positive: Normal inspection ENT: positive: ENT inspection nml Neck: positive: Nml inspection, Thyroid nml Cardiovascular: positive: Regular rate & rhythm, No murmur Back: positive: Nml inspection Skin: positive: Color nml, No rash Extremities: positive: Pedal edema, Other (+3-4 edema) Neurologic/Psychiatric: positive: Oriented x3, CN's nml (2-12) Sepsis Event Note (H) - Evaluation Current Stage of Sepsis: Ruled out Conclusion/Plan - Problem List (1) Abnormal liver function tests Conclusion/Plan: Continue to monitor likely from chornic congestion vs cirrhosis (2) Edema of both lower legs Conclusion/Plan: R/o DVt, check echo, dependent and pitting edema, will need extensive work up, lymphedema less likely in a short time (3) Hyponatremia Conclusion/Plan: BMP Q 4 hrs Hypertonic saline Fluid restriction Serum cortisol, tsh, S osm, urine OSM, urine NA Will need extensive work up ? SIAD Has had chronic low NA but never so low in past ? SEcondary to ETOH Nephrology/Endocrine prn (4) Alcohol abuse Conclusion/Plan: Monitor for now if any signs of withdrwal consider CIWA, Banana bag Replace Electrolytes as she also has Severe Hypomagnesemia replace Mg and check phos Telemetry and ICU monitoring - Lab Results Fish Bones: 12/04/22 19:35 12/04/22 19:35 - EKG Results EKG Interpreted Independently: No EKG Comparison: No prior EKG
[2022-12-04] MEDS ORDERED: SODIUM CHLORIDE 3% HYPERTONIC 500 ML IV SCH (22:00)
[2022-12-04] MEDS ORDERED: SODIUM CHLORIDE 3% HYPERTONIC 500 ML IV STA (22:45)
[2022-12-05] MEDS: SODIUM CHLORIDE FLUSH 0.9% 10 ML SYRINGE IVP SCH ×3 (01:09→16:48)
[2022-12-05 01:25] LABS: CALCIUM 7.6 mg/dL (8.5-10.3); CREATININE 0.9 mg/dL (0.4-1.0); POTASSIUM 4.4 mmol/L (3.5-5.0)
[2022-12-05] MEDS ORDERED: MAGNESIUM SULFATE 2 GRAM 2 GM/50 ML BAG IV SCH (03:00)
[2022-12-05 05:26] LABS: BASOPHILS # (AUTO) 0.1 10^3/uL (0.0-0.1); BASOPHILS % (AUTO) 1.1 %; EOSINOPHILS # (AUTO) 0.4 10^3/uL (0.0-0.7); EOSINOPHILS % (AUTO) 5.3 %; HCT - HEMATOCRIT 27.6 % (37.0-47.0); HGB - HEMOGLOBIN 9.8 g/dL (12.0-16.0); LYMPHOCYTES # (AUTO) 1.1 10^3/uL (1.5-3.5); LYMPHOCYTES % (AUTO) 14.4 %; MEAN CORPUSCULAR HEMOGLOBIN 33.4 pg (27.0-31.0); MEAN CORPUSCULAR HGB CONC 35.5 g/dL (32.0-36.0); MEAN CORPUSCULAR VOLUME 94.2 fL (81.0-99.0); MEAN PLATELET VOLUME 9.9 fL (7.9-10.8); MONOCYTES # (AUTO) 1.4 10^3/uL (0.0-1.0); NEUTROPHILS # (AUTO) 4.5 10^3/uL (1.5-6.6); NEUTROPHILS % (AUTO) 59.7 %; NRBC ABSOLUTE COUNT (AUTO) 0.02 x10^3/uL; NUCLEATED RED BLOOD CELLS AUTO 0.3 /100WBC; PLT - PLATELET COUNT 170 10^3/uL (130-450); RED BLOOD COUNT 2.93 10^6/uL (4.20-5.40); RED CELL DISTRIBUTION WIDTH 14.3 % (12.0-15.0); WHITE BLOOD COUNT 7.5 x10^3/uL (4.8-10.8)
[2022-12-05 05:42] LABS: INR 1.2 (0.8-1.2); PT - PROTHROMBIN TIME 13.5 secs (9.9-12.6)
[2022-12-05 05:44] LABS: ALBUMIN 2.6 g/dL (3.2-5.5); ALBUMIN/GLOBULIN RATIO 0.8 (1.0-2.2); BILIRUBIN,TOTAL 4.1 mg/dL (0.2-1.0); CALCIUM 7.5 mg/dL (8.5-10.3); CREATININE 0.9 mg/dL (0.4-1.0); MAGNESIUM 1.6 mg/dL (1.7-2.8); PHOSPHORUS 2.2 mg/dL (2.5-4.6); POTASSIUM 4.2 mmol/L (3.5-5.0); TOTAL PROTEIN 5.9 g/dL (6.7-8.2)
[2022-12-05 05:52] LABS: CHOL/HDL RATIO 13.8 (<4.4); CHOLESTEROL 220 mg/dL; HDL CHOLESTEROL 16 mg/dL; LDL CHOLESTEROL,CALCULATED 135 mg/dL; LDL/HDL RATIO 8.4 (<4.4); TRIGLYCERIDES 343 mg/dL; VLDL CHOLESTEROL 69 mg/dL
[2022-12-05] MEDS ORDERED: oxyCODONE 5 MG TABLET PO PRN (07:35)
[2022-12-05 09:30] LABS: CALCIUM 7.5 mg/dL (8.5-10.3); POTASSIUM 3.9 mmol/L (3.5-5.0)
[2022-12-05] MEDS: ALBUTEROL NEB 2.5 MG/3 ML INH PRN (09:52)
[2022-12-05] MEDS: MAGNESIUM OXIDE 400 MG TABLET PO SCH ×2 (11:20→16:48)
[2022-12-05] MEDS ORDERED: POTASSIUM CHLORIDE 20 MEQ TABLET PO ONE ×2 (12:06→17:21)
[2022-12-05 13:37] LABS: CALCIUM 7.6 mg/dL (8.5-10.3); CREATININE 0.9 mg/dL (0.4-1.0); POTASSIUM 3.9 mmol/L (3.5-5.0)
[2022-12-05] MEDS: PRENATAL VITAMIN TABLET PO SCH (13:38)
[2022-12-05] MEDS: THIAMINE 100 MG TABLET PO SCH (13:38)
--- NOTE | 2022-12-05 14:43 | PROVIDER PROGRESS NOTE ---
Assessment/Plan - Problem List (1) Hyponatremia Assessment/Plan: Patient with acute on chronic hyponatremia. Patient typically has sodium levels in the 1 25-1 27 range. Urine sodium level is normal Suspect current hyponatremia is in the setting of chronic liver failure, decompensating and worsening. Possibly exacerbated by medication changes. Received bolus of hypertonic saline on admission. Sodium improvedFrom 1 16-1 21, then slightly decreased to 120 on afternoon labs. 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 along with WATSON leading to decompensating liver Counseled explicitly on total alcohol cessation No evidence of obstructive process with no RUQ tenderness Continue to monitor labs, given elevated alkaline phosphatase over 300, could consider repeat imaging if patient becomes tender or febrile Check INR in am, and calculate MELD/Maddrey's score when done (3) Edema of both lower legs Assessment/Plan: Likely 2/2 chronic liver disease Per patient had an outpatient echocardiogram 2 weeks ago after diagnosis of infectious pericarditis and was told pericarditis has cleared and there is no heart failure I suspect this is further exacerbated by the recent use of colchicine in the setting of an pericarditis and the resultant erythema is likely venous stasis dermatitis as there does not appear to be evidence of infection, i.e. no leukocytosis or fever. And bilateral distribution does not favor infection (4) Hyperlipidemia Qualifiers: Hyperlipidemia type: pure hypercholesterolemia Qualified Code(s): E78.00 - Pure hypercholesterolemia, unspecified; E78.0 - Pure hypercholesterolemia Assessment/Plan: Hold statin given current liver failure (5) Hypertension Qualifiers: Hypertension type: primary hypertension Qualified Code(s): I10 - Essential (primary) hypertension Assessment/Plan: BP soft Hold Home antihypertensive meds - Current Meds Current Meds: Current Medications Generic Name Dose Route Start Last Admin Trade Name Freq PRN Reason Stop Dose Admin Albuterol 2.5 mg 12/04/22 21:28 12/05/22 09:52 Albuterol Neb 2.5 Mg/3 Ml INH 2.5 mg Q4HR PRN Administration Wheezing Magnesium Oxide 400 mg 12/05/22 11:00 12/05/22 11:20 Magnesium Oxide 400 Mg Tablet PO 12/05/22 17:01 400 mg Q6H ALESSIA Administration Multivit/Folic Acid/Iron 1 tab 12/05/22 13:00 12/05/22 13:38 Vitamin Tablet PO 1 tab DAILYWM ALESSIA Administration Sodium Chloride 10 ml 12/05/22 01:00 12/05/22 09:08 Sodium Chloride Flush 0.9% 10 Ml Syringe IVP 10 ml 0100,0900,1700 ALESSIA Administration Thiamine HCl 100 mg 12/05/22 13:00 12/05/22 13:38 Thiamine 100 Mg Tablet PO 100 mg DAILY ALESSIA Administration - Lab Result Fish Bone Diagrams: 12/05/22 05:18 12/05/22 13:04 - Additional Planning Condition/Complexity: Guarded My Orders: My Active Orders 12/05/22 11:00 Magnesium Oxide [Mag Ox] 400 mg PO Q6H 12/05/22 13:00 Vitamin [Trinatal Rx 1] 1 tab PO DAILYWM Thiamine [Vitamin B-1] 100 mg PO DAILY 12/05/22 15:00 NS 0.9% @ 83.333 mls/hr Sodium Chloride 0.9% [Normal Saline 0.9%] 1,000 ml IV 83.333 mls/hr 12/05/22 17:00 BMP - BASIC METABOLIC PANEL [CHEM] Q4HR 12/05/22 21:00 BMP - BASIC METABOLIC PANEL [CHEM] Q4HR 12/06/22 01:00 BMP - BASIC METABOLIC PANEL [CHEM] Q4HR 12/06/22 05:00 BMP - BASIC METABOLIC PANEL [CHEM] Q4HR CBC W/O DIFF (HEMOGRAM) [HEME] DAILYLAB MAGNESIUM [CHEM] DAILYLAB 12/06/22 09:00 BMP - BASIC METABOLIC PANEL [CHEM] Q4HR 12/06/22 13:00 BMP - BASIC METABOLIC PANEL [CHEM] Q4HR 12/06/22 17:00 BMP - BASIC METABOLIC PANEL [CHEM] Q4HR 12/06/22 21:00 BMP - BASIC METABOLIC PANEL [CHEM] Q4HR 12/07/22 01:00 BMP - BASIC METABOLIC PANEL [CHEM] Q4HR 12/07/22 05:00 BMP - BASIC METABOLIC PANEL [CHEM] Q4HR CBC W/O DIFF (HEMOGRAM) [HEME] DAILYLAB 12/07/22 09:00 BMP - BASIC METABOLIC PANEL [CHEM] Q4HR 12/08/22 05:00 CBC W/O DIFF (HEMOGRAM) [HEME] DAILYLAB Plan Discussed with:: Patient, Spouse Time Spent: 31-60 minutes Subjective - Subjective Patient Reports: Feeling Better Objective Vital Signs: Vital Signs - 24 hr 12/04/22 12/04/22 12/04/22 19:19 21:00 21:24 Temperature 36.3 C L Heart Rate 116 H 93 113 H Heart Rate [ Monitoring electrodes] Respiratory 32 H 16 15 Rate Blood Pressure 155/86 H 129/77 150/84 H Blood Pressure [Left Brachial artery] O2 Saturation 100 100 96 12/04/22 12/04/22 12/04/22 22:32 22:38 22:59 Temperature Heart Rate 114 H 105 H 110 H Heart Rate [ Monitoring electrodes] Respiratory 16 19 23 Rate Blood Pressure 121/87 H 118/80 118/80 Blood Pressure [Left Brachial artery] O2 Saturation 99 98 97 12/05/22 12/05/22 12/05/22 00:00 02:00 04:00 Temperature Heart Rate 105 H 91 91 Heart Rate [ Monitoring electrodes] Respiratory 16 16 16 Rate Blood Pressure 93/65 108/68 124/72 Blood Pressure [Left Brachial artery] O2 Saturation 97 96 97 12/05/22 12/05/22 12/05/22 06:00 07:48 08:55 Temperature 36.9 C Heart Rate 86 90 Heart Rate [ 97 Monitoring electrodes] Respiratory 18 23 15 Rate Blood Pressure 103/67 112/75 Blood Pressure 129/83 H [Left Brachial artery] O2 Saturation 94 92 99 12/05/22 12/05/22 12/05/22 09:00 09:58 10:00 Temperature Heart Rate 99 Heart Rate [ 104 H 99 Monitoring electrodes] Respiratory 24 10 L 16 Rate Blood Pressure Blood Pressure 136/78 H 113/70 [Left Brachial artery] O2 Saturation 97 100 12/05/22 12/05/22 12/05/22 11:00 12:00 13:00 Temperature Heart Rate Heart Rate [ 99 102 H 112 H Monitoring electrodes] Respiratory 22 18 22 Rate Blood Pressure Blood Pressure 114/74 136/84 H 120/81 H [Left Brachial artery] O2 Saturation 97 97 98 12/05/22 14:00 Temperature Heart Rate Heart Rate [ 111 H Monitoring electrodes] Respiratory 22 Rate Blood Pressure Blood Pressure 118/77 [Left Brachial artery] O2 Saturation 96 Oxygen O2 Source Room air I&O (Last 24 Hrs): Intake and Output Totals x24h 12/03/22 12/04/22 12/05/22 23:59 23:59 23:59 Intake Total 50 640.000 Output Total 350 Balance 50 290.000 General: Alert, Oriented x3 HEENT: Atraumatic, EOMI Neuro: Alert, Non Focal, Oriented Times 3 Cardiovascular: Regular rate, Normal S1, Normal S2 Respiratory: Chest non-tender Abdomen: No masses, Other (Distended,) Extremities: Other (Bilateral lower extremity edema, with superficial overlying erythema, w/ out significant warmth, central lesion, with some minor serous drainage) Skin: No rashes - Results Results: Laboratory Results WBC 7.5 x10^3/uL (4.8-10.8) 12/05/22 05:18 RBC 2.93 10^6/uL (4.20-5.40) L 12/05/22 05:18 Hgb 9.8 g/dL (12.0-16.0) L 12/05/22 05:18 Hct 27.6 % (37.0-47.0) L 12/05/22 05:18 MCV 94.2 fL (81.0-99.0) 12/05/22 05:18 MCH 33.4 pg (27.0-31.0) H 12/05/22 05:18 MCHC 35.5 g/dL (32.0-36.0) 12/05/22 05:18 RDW 14.3 % (12.0-15.0) 12/05/22 05:18 Plt Count 170 10^3/uL (130-450) 12/05/22 05:18 MPV 9.9 fL (7.9-10.8) 12/05/22 05:18 Neut # (Auto) 4.5 10^3/uL (1.5-6.6) 12/05/22 05:18 Lymph # (Auto) 1.1 10^3/uL (1.5-3.5) L 12/05/22 05:18 [place] # (Auto) 1.4 10^3/uL (0.0-1.0) H 12/05/22 05:18 Eos # (Auto) 0.4 10^3/uL (0.0-0.7) 12/05/22 05:18 Baso # (Auto) 0.1 10^3/uL (0.0-0.1) 12/05/22 05:18 Absolute Nucleated RBC 0.02 x10^3/uL 12/05/22 05:18 Nucleated RBC % 0.3 /100WBC 12/05/22 05:18 PT 13.5 secs (9.9-12.6) H 12/05/22 05:18 INR 1.2 (0.8-1.2) 12/05/22 05:18 Sodium 120 mmol/L (135-145) L* 12/05/22 13:04 Potassium 3.9 mmol/L (3.5-5.0) 12/05/22 13:04 Chloride 83 mmol/L (101-111) L 12/05/22 13:04 Carbon Dioxide 24 mmol/L (21-32) 12/05/22 13:04 Anion Gap 13.0 (6-13) 12/05/22 13:04 BUN 8 mg/dL (6-20) 12/05/22 13:04 Creatinine 0.9 mg/dL (0.4-1.0) 12/05/22 13:04 Estimated GFR (MDRD) 63 (>89) L 12/05/22 13:04 Glucose 150 mg/dL (70-100) H 12/05/22 13:04 Calcium 7.6 mg/dL (8.5-10.3) L 12/05/22 13:04 Phosphorus 2.2 mg/dL (2.5-4.6) L 12/05/22 05:18 Magnesium 1.6 mg/dL (1.7-2.8) L 12/05/22 09:08 Total Bilirubin 4.1 mg/dL (0.2-1.0) H 12/05/22 05:18 AST 135 IU/L (10-42) H 12/05/22 05:18 ALT 84 IU/L (10-60) H 12/05/22 05:18 Alkaline Phosphatase 382 IU/L (42-121) H 12/05/22 05:18 Ammonia 39.8 umol/L (7-35) H 12/05/22 05:18 Troponin I High Sens 17.2 ng/L (2.3-14.8) H* 12/04/22 21:40 B-Natriuretic Peptide 136 pg/mL (5-100) H 12/04/22 19:35 Total Protein 5.9 g/dL (6.7-8.2) L 12/05/22 05:18 Albumin 2.6 g/dL (3.2-5.5) L 12/05/22 05:18 Globulin 3.3 g/dL (2.1-4.2) 12/05/22 05:18 Albumin/Globulin Ratio 0.8 (1.0-2.2) L 12/05/22 05:18 Triglycerides 343 mg/dL (-149) H 12/05/22 05:18 Cholesterol 220 mg/dL (-199) H 12/05/22 05:18 LDL Cholesterol, Calc 135 mg/dL (-129) H 12/05/22 05:18 VLDL Cholesterol 69 mg/dL 12/05/22 05:18 HDL Cholesterol 16 mg/dL (60-) L 12/05/22 05:18 LDL/HDL Ratio 8.4 (<4.4) 12/05/22 05:18 Cholesterol/HDL Ratio 13.8 (<4.4) 12/05/22 05:18 TSH 3.99 uIU/mL (0.34-5.60) 12/04/22 19:35 Urine Sodium < 12.0 mmol/L 12/05/22 03:40 Nasal Screen MRSA (PCR) NEGATIVE (NEGATIVE) 12/04/22 09:00 Ethyl Alcohol < 5.0 mg/dL 12/05/22 05:18 Sepsis Event Note (H) - Evaluation Current Stage of Sepsis: Ruled out Current Medications - Current Medications Current Medications: Active Medications Generic Name Dose Route Start Last Admin Trade Name Freq PRN Reason Stop Dose Admin Albuterol 2.5 mg 12/04/22 21:28 12/05/22 09:52 Albuterol Neb 2.5 Mg/3 Ml INH 2.5 mg Q4HR PRN Administration Wheezing Sodium Chloride 1,000 mls @ 83.333 mls/hr 12/05/22 15:00 Normal Saline 0.9% IV .Q12H ALESSIA Ibuprofen 400 mg 12/04/22 21:28 Ibuprofen 400 Mg Tablet PO Q4HR PRN Pain 1 to 4 Ipratropium [place] 0.5 mg 12/04/22 21:28 Ipratropium 0.2 Mg/Ml Neb INH Q6HR PRN Wheezing Magnesium Oxide 400 mg 12/05/22 11:00 12/05/22 11:20 Magnesium Oxide 400 Mg Tablet PO 12/05/22 17:01 400 mg Q6H ALESSIA Administration Ondansetron HCl 4 mg 12/04/22 21:28 Ondansetron 4 Mg/2 Ml Vial IVP Q6HR PRN Nausea / Vomiting Oxycodone HCl 7.5 mg 12/05/22 07:35 Oxycodone 5 Mg Tablet PO Q6H PRN Pain 5 to 7 Multivit/Folic Acid/Iron 1 tab 12/05/22 13:00 12/05/22 13:38 Vitamin Tablet PO 1 tab DAILYWM ALESSIA Administration Sodium Chloride 10 ml 12/05/22 01:00 12/05/22 09:08 Sodium Chloride Flush 0.9% 10 Ml Syringe IVP 10 ml 0100,0900,1700 ALESSIA Administration Sodium Chloride 10 ml 12/04/22 21:28 Sodium Chloride Flush 0.9% 10 Ml Syringe IVP PRN PRN NEEDED PER PROVIDER ORDERS Temazepam 15 mg 12/04/22 21:28 Temazepam 15 Mg Capsule PO QPM PRN Insomnia Thiamine HCl 100 mg 12/05/22 13:00 12/05/22 13:38 Thiamine 100 Mg Tablet PO 100 mg DAILY ALESSIA Administration Metoprolol Succinate [Toprol Xl] 100 mg PO DAILY 08/29/20 Rosuvastatin Calcium [Crestor] 10 mg PO DAILY 08/29/20 Aspirin [Aspirin EC] 81 mg PO DAILY 02/13/21 Ferrous Sulfate 325 mg PO DAILY 02/13/21 Multivitamin [Theragran] 1 each PO DAILY 02/13/21
[2022-12-05] MEDS: SODIUM CHLORIDE 0.9% 1,000 ML IV SCH (15:08)
[2022-12-05] MEDS: IPRATROPIUM 0.2 MG/ML NEB INH PRN (15:30)
[2022-12-05 17:17] LABS: CALCIUM 7.7 mg/dL (8.5-10.3); POTASSIUM 3.9 mmol/L (3.5-5.0)
[2022-12-05 20:36] LABS: CALCIUM 7.5 mg/dL (8.5-10.3); CREATININE 0.9 mg/dL (0.4-1.0); MAGNESIUM 1.6 mg/dL (1.7-2.8); POTASSIUM 4.4 mmol/L (3.5-5.0)
[2022-12-05] MEDS ORDERED: MAGNESIUM OXIDE 400 MG TABLET PO ONE (21:44)
[2022-12-06 01:18] LABS: CALCIUM 7.6 mg/dL (8.5-10.3); CREATININE 0.8 mg/dL (0.4-1.0); POTASSIUM 4.2 mmol/L (3.5-5.0)
[2022-12-06] MEDS: SODIUM CHLORIDE FLUSH 0.9% 10 ML SYRINGE IVP SCH ×4 (03:19→23:59)
[2022-12-06] MEDS: SODIUM CHLORIDE 0.9% 1,000 ML IV SCH ×2 (03:19→14:24)
[2022-12-06 05:11] LABS: HCT - HEMATOCRIT 28.7 % (37.0-47.0); HGB - HEMOGLOBIN 9.7 g/dL (12.0-16.0); MEAN CORPUSCULAR HEMOGLOBIN 32.8 pg (27.0-31.0); MEAN CORPUSCULAR HGB CONC 33.8 g/dL (32.0-36.0); MEAN PLATELET VOLUME 10.2 fL (7.9-10.8); RED BLOOD COUNT 2.96 10^6/uL (4.20-5.40); RED CELL DISTRIBUTION WIDTH 15.1 % (12.0-15.0); WHITE BLOOD COUNT 6.3 x10^3/uL (4.8-10.8)
[2022-12-06 05:21] LABS: INR 1.2 (0.8-1.2); PT - PROTHROMBIN TIME 12.9 secs (9.9-12.6)
[2022-12-06 05:26] LABS: ALBUMIN 2.7 g/dL (3.2-5.5); BILIRUBIN,DIRECT 2.6 mg/dL (0.1-0.5); BILIRUBIN,TOTAL 3.9 mg/dL (0.2-1.0); CALCIUM 7.8 mg/dL (8.5-10.3); CREATININE 0.7 mg/dL (0.4-1.0); MAGNESIUM 1.6 mg/dL (1.7-2.8); POTASSIUM 3.8 mmol/L (3.5-5.0)
[2022-12-06] MEDS ORDERED: MAGNESIUM OXIDE 400 MG TABLET PO ONE (05:59)
[2022-12-06] MEDS: PRENATAL VITAMIN TABLET PO SCH (08:15)
[2022-12-06] MEDS: THIAMINE 100 MG TABLET PO SCH (08:16)
[2022-12-06] MEDS ORDERED: POTASSIUM CHLORIDE 20 MEQ TABLET PO ONE (08:21)
[2022-12-06 09:42] LABS: CALCIUM 7.9 mg/dL (8.5-10.3); CREATININE 0.7 mg/dL (0.4-1.0); POTASSIUM 3.8 mmol/L (3.5-5.0)
[2022-12-06 13:15] LABS: CALCIUM 7.9 mg/dL (8.5-10.3); CREATININE 0.7 mg/dL (0.4-1.0); POTASSIUM 4.3 mmol/L (3.5-5.0)
[2022-12-06] MEDS: ALBUTEROL NEB 2.5 MG/3 ML INH PRN (13:36)
[2022-12-06 17:24] LABS: CALCIUM 7.9 mg/dL (8.5-10.3); CREATININE 0.7 mg/dL (0.4-1.0); POTASSIUM 4.1 mmol/L (3.5-5.0)
--- NOTE | 2022-12-06 17:51 | PROVIDER PROGRESS NOTE ---
Assessment/Plan - Problem List (1) Hyponatremia Assessment/Plan: Much improved Sodium improved to 130. We will stop NS Stop every 4 hour sodium checks Repeat BMP in the a.m. (2) Abnormal liver function tests Assessment/Plan: Lab work consistent with cirrhosis Will need outpatient GI and probably hepatology referral as well Given no pain, fever, leukocytosis, cholecystitis is much less likely despite elevated alkaline phosphatase. Discussed with patient, will defer further imaging for now. Of note, patient had a alkaline phosphatase over 500 on previous lab results suggesting this is a chronic elevation with some variability. (4) Hyperlipidemia Qualifiers: Hyperlipidemia type: pure hypercholesterolemia Qualified Code(s): E78.00 - Pure hypercholesterolemia, unspecified; E78.0 - Pure hypercholesterolemia (5) Hypertension Qualifiers: Hypertension type: primary hypertension Qualified Code(s): I10 - Essential (primary) hypertension Assessment/Plan: Reviewed outpatient medications with patient She is on metoprolol succinate 100 mg in the morning and 50 at night Given her relatively normal blood pressures here, will resume slowly at 50 mg at night only and monitor blood pressure - Current Meds Current Meds: Current Medications Generic Name Dose Route Start Last Admin Trade Name Freq PRN Reason Stop Dose Admin Albuterol 2.5 mg 12/04/22 21:28 12/06/22 13:36 Albuterol Neb 2.5 Mg/3 Ml INH 2.5 mg Q4HR PRN Administration Wheezing Sodium Chloride 1,000 mls @ 83.333 mls/hr 12/05/22 15:00 12/06/22 14:24 Normal Saline 0.9% IV 83.333 mls/hr .Q12H ALESSIA Administration Ipratropium [place] 0.5 mg 12/04/22 21:28 12/05/22 15:30 Ipratropium 0.2 Mg/Ml Neb INH 0.5 mg Q6HR PRN Administration Wheezing Multivit/Folic Acid/Iron 1 tab 12/05/22 13:00 12/06/22 08:15 Vitamin Tablet PO 1 tab DAILYWM ALESSIA Administration Sodium Chloride 10 ml 12/05/22 01:00 12/06/22 08:16 Sodium Chloride Flush 0.9% 10 Ml Syringe IVP 10 ml 0100,0900,1700 ALESSIA Administration Thiamine HCl 100 mg 12/05/22 13:00 12/06/22 08:16 Thiamine 100 Mg Tablet PO 100 mg DAILY ALESSIA Administration - Lab Result Fish Bone Diagrams: 12/06/22 04:31 12/06/22 17:07 - Additional Planning Condition/Complexity: Stable My Orders: My Active Orders 12/06/22 15:49 Telemetry- [RC] Q4HR 12/06/22 21:00 BMP - BASIC METABOLIC PANEL [CHEM] Q4HR Metoprolol Succinate [Toprol Xl] 50 mg PO QPM 12/07/22 01:00 BMP - BASIC METABOLIC PANEL [CHEM] Q4HR 12/07/22 05:00 BMP - BASIC METABOLIC PANEL [CHEM] Q4HR CBC W/O DIFF (HEMOGRAM) [HEME] DAILYLAB LIVER PANEL [CHEM] DAILYLAB 12/07/22 09:00 BMP - BASIC METABOLIC PANEL [CHEM] Q4HR 12/08/22 05:00 CBC W/O DIFF (HEMOGRAM) [HEME] DAILYLAB LIVER PANEL [CHEM] DAILYLAB Subjective - Subjective Patient Reports: Feeling Better Objective Vital Signs: Vital Signs - 24 hr 12/05/22 12/05/22 12/05/22 18:00 19:00 20:00 Temperature 36.7 C Heart Rate Heart Rate [ 112 H 109 H 107 H Monitoring electrodes] Respiratory 25 H 30 H 22 Rate Blood Pressure 119/75 122/73 120/73 [Left Brachial artery] O2 Saturation 96 95 94 12/05/22 12/05/22 12/05/22 21:00 22:00 23:00 Temperature Heart Rate Heart Rate [ 102 H 100 102 H Monitoring electrodes] Respiratory 23 21 13 Rate Blood Pressure 119/76 120/73 130/77 [Left Brachial artery] O2 Saturation 92 95 96 12/06/22 12/06/22 12/06/22 00:00 01:00 02:00 Temperature Heart Rate Heart Rate [ 103 H 111 H 103 H Monitoring electrodes] Respiratory 19 26 H 19 Rate Blood Pressure 99/63 91/54 L 118/71 [Left Brachial artery] O2 Saturation 92 97 93 12/06/22 12/06/22 12/06/22 03:00 04:00 05:00 Temperature 36.6 C Heart Rate Heart Rate [ 95 109 H 105 H Monitoring electrodes] Respiratory 19 26 H 21 Rate Blood Pressure 103/63 113/84 H 128/78 [Left Brachial artery] O2 Saturation 97 96 95 04/12/06/22 12/06/22 06:00 07:00 08:00 Temperature 36.9 C Heart Rate Heart Rate [ 108 H 102 H 101 H Monitoring electrodes] Respiratory 27 H 18 20 Rate Blood Pressure 118/86 H 132/78 H 141/84 H [Left Brachial artery] O2 Saturation 97 96 100 12/06/22 12/06/22 12/06/22 09:00 10:00 11:00 Temperature Heart Rate Heart Rate [ 113 H 128 H 118 H Monitoring electrodes] Respiratory 25 H 28 H 22 Rate Blood Pressure 132/83 H 132/74 H 117/84 H [Left Brachial artery] O2 Saturation 96 94 94 12/06/22 12/06/22 12/06/22 12:00 13:00 13:38 Temperature 37.1 C Heart Rate 117 H Heart Rate [ 100 Monitoring electrodes] Respiratory 24 15 Rate Blood Pressure 124/79 146/83 H [Left Brachial artery] O2 Saturation 96 12/06/22 12/06/22 12/06/22 14:00 15:00 16:00 Temperature 36.4 C L 36.7 C Heart Rate Heart Rate [ 125 H 120 H 116 H Monitoring electrodes] Respiratory 24 24 24 Rate Blood Pressure 139/79 H 125/89 H 121/71 [Left Brachial artery] O2 Saturation 95 94 96 Oxygen O2 Source Room air I&O (Last 24 Hrs): Intake and Output Totals x24h 12/04/22 12/05/22 12/06/22 23:59 23:59 23:59 Intake Total 50 8592.573 6821.607 Output Total 350 150 Balance 50 233.579 3295.607 General: Alert, Oriented x3 HEENT: Atraumatic Neuro: Alert, Disoriented, Oriented Times 3 Cardiovascular: Regular rate, Normal S1, Normal S2 Respiratory: No respiratory distress Abdomen: Normal bowel sounds Extremities: Other (Bilateral LE edema) - Results Results: Laboratory Results WBC 6.3 x10^3/uL (4.8-10.8) 12/06/22 04:31 RBC 2.96 10^6/uL (4.20-5.40) L 12/06/22 04:31 Hgb 9.7 g/dL (12.0-16.0) L 12/06/22 04:31 Hct 28.7 % (37.0-47.0) L 12/06/22 04:31 MCV 97.0 fL (81.0-99.0) 12/06/22 04:31 MCH 32.8 pg (27.0-31.0) H 12/06/22 04:31 MCHC 33.8 g/dL (32.0-36.0) 12/06/22 04:31 RDW 15.1 % (12.0-15.0) H 12/06/22 04:31 Plt Count 184 10^3/uL (130-450) 12/06/22 04:31 MPV 10.2 fL (7.9-10.8) 12/06/22 04:31 Neut # (Auto) 4.5 10^3/uL (1.5-6.6) 12/05/22 05:18 Lymph # (Auto) 1.1 10^3/uL (1.5-3.5) L 12/05/22 05:18 [place] # (Auto) 1.4 10^3/uL (0.0-1.0) H 12/05/22 05:18 Eos # (Auto) 0.4 10^3/uL (0.0-0.7) 12/05/22 05:18 Baso # (Auto) 0.1 10^3/uL (0.0-0.1) 12/05/22 05:18 Absolute Nucleated RBC 0.02 x10^3/uL 12/05/22 05:18 Nucleated RBC % 0.3 /100WBC 12/05/22 05:18 PT 12.9 secs (9.9-12.6) H 12/06/22 04:31 INR 1.2 (0.8-1.2) 12/06/22 04:31 Sodium 130 mmol/L (135-145) L 12/06/22 17:07 Potassium 4.1 mmol/L (3.5-5.0) 12/06/22 17:07 Chloride 95 mmol/L (101-111) L 12/06/22 17:07 Carbon Dioxide 24 mmol/L (21-32) 12/06/22 17:07 Anion Gap 11.0 (6-13) 12/06/22 17:07 BUN 6 mg/dL (6-20) 12/06/22 17:07 Creatinine 0.7 mg/dL (0.4-1.0) 12/06/22 17:07 Estimated GFR (MDRD) 84 (>89) L 12/06/22 17:07 Glucose 123 mg/dL (70-100) H 12/06/22 17:07 Calcium 7.9 mg/dL (8.5-10.3) L 12/06/22 17:07 Phosphorus 2.2 mg/dL (2.5-4.6) L 12/05/22 05:18 Magnesium 1.6 mg/dL (1.7-2.8) L 12/06/22 04:31 Total Bilirubin 3.9 mg/dL (0.2-1.0) H 12/06/22 04:31 Direct Bilirubin 2.6 mg/dL (0.1-0.5) H 12/06/22 04:31 AST 140 IU/L (10-42) H 12/06/22 04:31 ALT 80 IU/L (10-60) H 12/06/22 04:31 Alkaline Phosphatase 388 IU/L (42-121) H 12/06/22 04:31 Ammonia 39.8 umol/L (7-35) H 12/05/22 05:18 Troponin I High Sens 17.2 ng/L (2.3-14.8) H* 12/04/22 21:40 B-Natriuretic Peptide 136 pg/mL (5-100) H 12/04/22 19:35 Total Protein 6.0 g/dL (6.7-8.2) L 12/06/22 04:31 Albumin 2.7 g/dL (3.2-5.5) L 12/06/22 04:31 Globulin 3.3 g/dL (2.1-4.2) 12/06/22 04:31 Albumin/Globulin Ratio 0.8 (1.0-2.2) L 12/05/22 05:18 Triglycerides 343 mg/dL (-149) H 12/05/22 05:18 Cholesterol 220 mg/dL (-199) H 12/05/22 05:18 LDL Cholesterol, Calc 135 mg/dL (-129) H 12/05/22 05:18 VLDL Cholesterol 69 mg/dL 12/05/22 05:18 HDL Cholesterol 16 mg/dL (60-) L 12/05/22 05:18 LDL/HDL Ratio 8.4 (<4.4) 12/05/22 05:18 Cholesterol/HDL Ratio 13.8 (<4.4) 12/05/22 05:18 TSH 3.99 uIU/mL (0.34-5.60) 12/04/22 19:35 Urine Sodium < 12.0 mmol/L 12/05/22 03:40 Nasal Screen MRSA (PCR) NEGATIVE (NEGATIVE) 12/04/22 09:00 Ethyl Alcohol < 5.0 mg/dL 12/05/22 05:18 Sepsis Event Note (H) - Evaluation Current Stage of Sepsis: Ruled out ABX Reporting Has patient been on IV antibiotics over the past 48 hours?: No
[2022-12-06] MEDS: METOPROLOL SUCCINATE 50 MG TABLET PO SCH (21:01)
[2022-12-06] MEDS: SODIUM CHLORIDE FLUSH 0.9% 10 ML SYRINGE IVP PRN (23:59)
[2022-12-07 05:29] LABS: HCT - HEMATOCRIT 28.7 % (37.0-47.0); HGB - HEMOGLOBIN 9.7 g/dL (12.0-16.0); MEAN CORPUSCULAR HEMOGLOBIN 33.4 pg (27.0-31.0); MEAN CORPUSCULAR HGB CONC 33.8 g/dL (32.0-36.0); MEAN PLATELET VOLUME 9.7 fL (7.9-10.8); RED BLOOD COUNT 2.9 10^6/uL (4.20-5.40); RED CELL DISTRIBUTION WIDTH 15.5 % (12.0-15.0); WHITE BLOOD COUNT 6.5 x10^3/uL (4.8-10.8)
[2022-12-07 05:44] LABS: ALBUMIN 2.7 g/dL (3.2-5.5); BILIRUBIN,TOTAL 3.4 mg/dL (0.2-1.0); CALCIUM 7.9 mg/dL (8.5-10.3); CREATININE 0.7 mg/dL (0.4-1.0); POTASSIUM 3.8 mmol/L (3.5-5.0); TOTAL PROTEIN 5.9 g/dL (6.7-8.2)
[2022-12-07] MEDS: PRENATAL VITAMIN TABLET PO SCH (09:01)
[2022-12-07] MEDS: CALCIUM CITRATE 250 MG TABLET PO SCH ×2 (09:01→20:47)
[2022-12-07] MEDS: SODIUM CHLORIDE FLUSH 0.9% 10 ML SYRINGE IVP SCH ×2 (09:01→20:48)
[2022-12-07] MEDS: THIAMINE 100 MG TABLET PO SCH (09:01)
[2022-12-07] MEDS: ALBUTEROL NEB 2.5 MG/3 ML INH PRN (11:33)
[2022-12-07] MEDS: IPRATROPIUM 0.2 MG/ML NEB INH PRN (11:33)
[2022-12-07] MEDS: SPIRONOLACTONE 25 MG TABLET PO SCH (12:10)
--- NOTE | 2022-12-07 13:29 | PROVIDER PROGRESS NOTE ---
Assessment/Plan - Problem List (1) Hyponatremia Assessment/Plan: Hyponatremia most likely secondary to fluid redistribution secondary to liver failure, exacerbated by recent colchicine Much improved Sodium improved to 133 Repeat BMP in the a.m. (2) Abnormal liver function tests Assessment/Plan: Lab work consistent with cirrhosis Will need outpatient GI and probably hepatology referral as well Given no pain, fever, leukocytosis, cholecystitis is much less likely despite elevated alkaline phosphatase. Discussed with patient, will defer further imaging for now. Of note, patient had a alkaline phosphatase over 500 on previous lab results suggesting this is a chronic elevation with some variability. (3) Edema of both lower legs Assessment/Plan: Bilateral lower extremity edema most likely secondary to liver failure. Per patient she had a recent echocardiogram and though she had recently had pericarditis the follow-up echocardiogram showed resolution of pericarditis with no resultant ejection fraction reduction. Per patient, she does not have congestive heart failure. Patient is leg edema has improved, responded well to NADEEN wrapping. Patient requesting APOLONIA lee will order. Explained to patient that this will likely take a long time to resolve and will be somewhat dependent on the management of her fluids and the resolution of her liver failure, to what ever extent that is possible. (4) Hyperlipidemia Qualifiers: Hyperlipidemia type: pure hypercholesterolemia Qualified Code(s): E78.00 - Pure hypercholesterolemia, unspecified; E78.0 - Pure hypercholesterolemia Assessment/Plan: Patient is on low-dose statin at home which I will hold. She does not know her recent cholesterol levels, but based on the dose it is likely mild hyperlipidemia. Given her liver failure, the risk of harm from statin in the case of mild hyperlipidemia in a patient with no known history of CAD or stroke, outweighs the benefit at this time. I advised she further this discussion with PCP when they are able to review her lipid panel to determine if resuming a statin is worth the potential harm to the liver. (5) Hypertension Qualifiers: Hypertension type: primary hypertension Qualified Code(s): I10 - Essential (primary) hypertension Assessment/Plan: Controlled on Metoprolol 50 mg every afternoon. Patient states her glass vial filler recently increased her metoprolol to 100 mg in the morning and 50 mg at night. We did not resume this due to soft blood pressures, and as blood pressures have normalized, resumed last night at 50 mg which have resulted in very good blood pressure control and normal heart rates. We will add spironolactone 25 mg every morning to aid in pulmonary hypertension, as well as leg edema. Monitor blood pressure for response. - Current Meds Current Meds: Current Medications Generic Name Dose Route Start Last Admin Trade Name Freq PRN Reason Stop Dose Admin Albuterol 2.5 mg 12/04/22 21:28 12/07/22 11:33 Albuterol Neb 2.5 Mg/3 Ml INH 2.5 mg Q4HR PRN Administration Wheezing Calcium Citrate 250 mg 12/07/22 09:00 12/07/22 09:01 Calcium Citrate 250 Mg Tablet PO 250 mg BID ALESSIA Administration Ibuprofen 400 mg 12/04/22 21:28 12/07/22 12:53 Ibuprofen 400 Mg Tablet PO 400 mg Q4HR PRN Administration Pain 1 to 4 Ipratropium [place] 0.5 mg 12/04/22 21:28 12/07/22 11:33 Ipratropium 0.2 Mg/Ml Neb INH 0.5 mg Q6HR PRN Administration Wheezing Metoprolol Succinate 50 mg 12/06/22 21:00 12/06/22 21:01 Metoprolol Succinate 50 Mg Tablet PO 50 mg QPM ALESSIA Administration Multivit/Folic Acid/Iron 1 tab 12/05/22 13:00 12/07/22 09:01 Vitamin Tablet PO 1 tab DAILYWM ALESSIA Administration Sodium Chloride 10 ml 12/05/22 01:00 12/07/22 09:01 Sodium Chloride Flush 0.9% 10 Ml Syringe IVP 10 ml 0100,0900,1700 ALESSIA Administration Sodium Chloride 10 ml 12/04/22 21:28 12/06/22 23:59 Sodium Chloride Flush 0.9% 10 Ml Syringe IVP 10 ml PRN PRN Administration NEEDED PER PROVIDER ORDERS Spironolactone 25 mg 12/07/22 11:00 12/07/22 12:10 Spironolactone 25 Mg Tablet PO 25 mg DAILY ALESSIA Administration Thiamine HCl 100 mg 12/05/22 13:00 12/07/22 09:01 Thiamine 100 Mg Tablet PO 100 mg DAILY ALESSIA Administration - Lab Result Lab results reviewed: Yes Fish Bone Diagrams: 12/07/22 05:05 12/07/22 05:05 - Diagnostic Imaging Results Diagnostic Imaging Results: Final report reviewed - Additional Planning Condition/Complexity: Improved My Orders: My Active Orders 12/06/22 15:49 Telemetry- [RC] Q4HR 12/06/22 21:00 Metoprolol Succinate [Toprol Xl] 50 mg PO QPM 12/07/22 09:00 Calcium Citrate 250 mg PO BID 12/07/22 10:31 APOLONIA Lee [RC] QSHIFT 12/07/22 11:00 Spironolactone [Aldactone] 25 mg PO DAILY 12/08/22 05:00 CBC W/O DIFF (HEMOGRAM) [HEME] DAILYLAB LIVER PANEL [CHEM] DAILYLAB Subjective - Subjective Patient Reports: Feeling Better Objective Vital Signs: Vital Signs - 24 hr 12/06/22 12/06/22 12/06/22 13:38 14:00 15:00 Temperature 36.4 C L Heart Rate 117 H Heart Rate [ Brachial] Heart Rate [ 125 H 120 H Monitoring electrodes] Respiratory 15 24 24 Rate Blood Pressure 139/79 H 125/89 H [Left Brachial artery] Blood Pressure [Right Brachial artery] O2 Saturation 95 94 12/06/22 12/06/22 12/06/22 16:00 20:02 23:58 Temperature 36.7 C 36.3 C L 36.8 C Heart Rate Heart Rate [ Brachial] Heart Rate [ 116 H 117 H 100 Monitoring electrodes] Respiratory 24 18 18 Rate Blood Pressure 121/71 [Left Brachial artery] Blood Pressure 142/85 H 126/76 [Right Brachial artery] O2 Saturation 96 95 95 12/07/22 12/07/22 12/07/22 05:00 07:23 11:35 Temperature 36.5 C 36.9 C Heart Rate 90 Heart Rate [ 97 Brachial] Heart Rate [ 91 Monitoring electrodes] Respiratory 16 18 20 Rate Blood Pressure [Left Brachial artery] Blood Pressure 137/76 H 116/76 [Right Brachial artery] O2 Saturation 96 93 12/07/22 12:09 Temperature 36.4 C L Heart Rate Heart Rate [ Brachial] Heart Rate [ 107 H Monitoring electrodes] Respiratory 18 Rate Blood Pressure [Left Brachial artery] Blood Pressure 134/74 H [Right Brachial artery] O2 Saturation 97 Oxygen O2 Source Room air I&O (Last 24 Hrs): Intake and Output Totals x24h 12/05/22 12/06/22 12/07/22 23:59 23:59 23:59 Intake Total 5227.084 4060.607 540 Output Total 350 150 200 Balance 230.415 6605.607 340 General: Alert, Oriented x3 HEENT: Atraumatic Neuro: Alert, Oriented Times 3 Cardiovascular: Regular rate, Normal S1, Normal S2 Abdomen: Normal bowel sounds, No tenderness, No hepatospenomegaly Extremities: Other (Bilateral lower extremity edema significantly improved, erythema also greatly improved. Despite improvement, still with 3+ pitting edema of bilateral lower extremities up to the knees. Nonpitting very minimal trace edema of the thighs bilaterally.) - Results Results: Laboratory Results WBC 6.5 x10^3/uL (4.8-10.8) 12/07/22 05:05 RBC 2.90 10^6/uL (4.20-5.40) L 12/07/22 05:05 Hgb 9.7 g/dL (12.0-16.0) L 12/07/22 05:05 Hct 28.7 % (37.0-47.0) L 12/07/22 05:05 MCV 99.0 fL (81.0-99.0) 12/07/22 05:05 MCH 33.4 pg (27.0-31.0) H 12/07/22 05:05 MCHC 33.8 g/dL (32.0-36.0) 12/07/22 05:05 RDW 15.5 % (12.0-15.0) H 12/07/22 05:05 Plt Count 184 10^3/uL (130-450) 12/07/22 05:05 MPV 9.7 fL (7.9-10.8) 12/07/22 05:05 Neut # (Auto) 4.5 10^3/uL (1.5-6.6) 12/05/22 05:18 Lymph # (Auto) 1.1 10^3/uL (1.5-3.5) L 12/05/22 05:18 [place] # (Auto) 1.4 10^3/uL (0.0-1.0) H 12/05/22 05:18 Eos # (Auto) 0.4 10^3/uL (0.0-0.7) 12/05/22 05:18 Baso # (Auto) 0.1 10^3/uL (0.0-0.1) 12/05/22 05:18 Absolute Nucleated RBC 0.02 x10^3/uL 12/05/22 05:18 Nucleated RBC % 0.3 /100WBC 12/05/22 05:18 PT 12.9 secs (9.9-12.6) H 12/06/22 04:31 INR 1.2 (0.8-1.2) 12/06/22 04:31 Sodium 133 mmol/L (135-145) L 12/07/22 05:05 Potassium 3.8 mmol/L (3.5-5.0) 12/07/22 05:05 Chloride 99 mmol/L (101-111) L 12/07/22 05:05 Carbon Dioxide 26 mmol/L (21-32) 12/07/22 05:05 Anion Gap 8.0 (6-13) 12/07/22 05:05 BUN 5 mg/dL (6-20) L 12/07/22 05:05 Creatinine 0.7 mg/dL (0.4-1.0) 12/07/22 05:05 Estimated GFR (MDRD) 84 (>89) L 12/07/22 05:05 Glucose 103 mg/dL (70-100) H 12/07/22 05:05 Calcium 7.9 mg/dL (8.5-10.3) L 12/07/22 05:05 Phosphorus 2.2 mg/dL (2.5-4.6) L 12/05/22 05:18 Magnesium 1.6 mg/dL (1.7-2.8) L 12/06/22 04:31 Total Bilirubin 3.4 mg/dL (0.2-1.0) H 12/07/22 05:05 Direct Bilirubin 2.0 mg/dL (0.1-0.5) H 12/07/22 05:05 AST 130 IU/L (10-42) H 12/07/22 05:05 ALT 77 IU/L (10-60) H 12/07/22 05:05 Alkaline Phosphatase 353 IU/L (42-121) H 12/07/22 05:05 Ammonia 39.8 umol/L (7-35) H 12/05/22 05:18 Troponin I High Sens 17.2 ng/L (2.3-14.8) H* 12/04/22 21:40 B-Natriuretic Peptide 136 pg/mL (5-100) H 12/04/22 19:35 Total Protein 5.9 g/dL (6.7-8.2) L 12/07/22 05:05 Albumin 2.7 g/dL (3.2-5.5) L 12/07/22 05:05 Globulin 3.2 g/dL (2.1-4.2) 12/07/22 05:05 Albumin/Globulin Ratio 0.8 (1.0-2.2) L 12/05/22 05:18 Triglycerides 343 mg/dL (-149) H 12/05/22 05:18 Cholesterol 220 mg/dL (-199) H 12/05/22 05:18 LDL Cholesterol, Calc 135 mg/dL (-129) H 12/05/22 05:18 VLDL Cholesterol 69 mg/dL 12/05/22 05:18 HDL Cholesterol 16 mg/dL (60-) L 12/05/22 05:18 LDL/HDL Ratio 8.4 (<4.4) 12/05/22 05:18 Cholesterol/HDL Ratio 13.8 (<4.4) 12/05/22 05:18 TSH 3.99 uIU/mL (0.34-5.60) 12/04/22 19:35 Urine Sodium < 12.0 mmol/L 12/05/22 03:40 Nasal Screen MRSA (PCR) NEGATIVE (NEGATIVE) 12/04/22 09:00 Ethyl Alcohol < 5.0 mg/dL 12/05/22 05:18 Sepsis Event Note (H) - Evaluation Current Stage of Sepsis: Ruled out ABX Reporting Has patient been on IV antibiotics over the past 48 hours?: No
[2022-12-07] MEDS: METOPROLOL SUCCINATE 50 MG TABLET PO SCH (20:47)
[2022-12-08] MEDS: SODIUM CHLORIDE FLUSH 0.9% 10 ML SYRINGE IVP SCH ×2 (01:10→08:40)
[2022-12-08] MEDS: SODIUM CHLORIDE FLUSH 0.9% 10 ML SYRINGE IVP PRN ×2 (01:10→08:40)
[2022-12-08 05:40] LABS: HCT - HEMATOCRIT 29.7 % (37.0-47.0); HGB - HEMOGLOBIN 9.7 g/dL (12.0-16.0); MEAN CORPUSCULAR HEMOGLOBIN 32.8 pg (27.0-31.0); MEAN CORPUSCULAR HGB CONC 32.7 g/dL (32.0-36.0); MEAN CORPUSCULAR VOLUME 100.3 fL (81.0-99.0); MEAN PLATELET VOLUME 9.8 fL (7.9-10.8); RED BLOOD COUNT 2.96 10^6/uL (4.20-5.40); RED CELL DISTRIBUTION WIDTH 16.1 % (12.0-15.0); WHITE BLOOD COUNT 6.6 x10^3/uL (4.8-10.8)
[2022-12-08 06:01] LABS: ALBUMIN 2.6 g/dL (3.2-5.5); BILIRUBIN,DIRECT 1.9 mg/dL (0.1-0.5); BILIRUBIN,TOTAL 3.2 mg/dL (0.2-1.0)
[2022-12-08] MEDS: THIAMINE 100 MG TABLET PO SCH (08:38)
[2022-12-08] MEDS: SPIRONOLACTONE 25 MG TABLET PO SCH (08:38)
[2022-12-08] MEDS: CALCIUM CITRATE 250 MG TABLET PO SCH (08:38)
[2022-12-08] MEDS: PRENATAL VITAMIN TABLET PO SCH (08:38)
[2022-12-08 08:39] LABS: CALCIUM 8.4 mg/dL (8.5-10.3); CREATININE 0.7 mg/dL (0.4-1.0); POTASSIUM 3.7 mmol/L (3.5-5.0)
[2022-12-08 08:48] VITALS: BP 115/74
--- NOTE | 2022-12-08 11:28 | Discharge Plan ---
Discharge Plan Problem Reviewed?: Yes Disposition: Home, Self Care Condition: Stable Prescriptions: Spironolactone [Aldactone] 25 mg PO DAILY #30 tab Calcium Citrate 250 mg PO BID #60 tab Thiamine [Vitamin B-1] 100 mg PO DAILY #100 tab Diet: Cardiac Activity Restrictions: No Restrictions Shower Restrictions: No Driving Restrictions: No Weight Bearing: Full Weight Instruction Topics: Cirrhosis Liver Dc, ED Edema Legs Bilateral Health Concerns: Liver disease Hyponatremia Leg swelling High blood pressure Plan of Treatment: Here is a summary of few of the recommended highlights of your treatment plan: 1. Please follow-up with your primary care physician to review recent lab work, as it pertains to low sodium levels and abnormal liver function tests.Your sodium was very low when you first came to the hospital, and after providing some IV fluids with sodium and fluid, this gradually improved and became close to normal. Most likely your sodium level was low due to fluid retention related to liver failure. Your doctor may want to check blood work periodically to make sure your sodium level has stabilized. 2. Your blood test suggest that you have liver disease. A CAT scan from a previous hospital admission showed fatty liver, and this should be followed up on. Your doctor may suggest abdominal ultrasounds, and a referral to a liver specialist. 3. Your blood pressure was on the low side while you were here. Although you have been prescribed 2 blood pressure medications, I am going to recommend you take only the metoprolol 50 mg at night and for now, do not take the 100 mg metoprolol in the morning. Instead, I am starting you on a new medication called spironolactone. This is a type of water pill that is preferable for patients with liver disease but it will also lower your blood pressure as well. This is why I think in order to prevent your blood pressure from being too low, it would be best to eliminate the 100 mg metoprolol dose. Of course, you should keep an eye on your blood pressure and keep a blood pressure diary to review with your doctors. Based on your blood pressure readings, they may decide to make some changes to this regimen. 4. You mentioned that you have problems with coughing at night and wheezing from time to time. You are already taking an inhaler called fluticasone. This is a good medication but there are stronger inhalers available and it may be worth discussing this with your PCP at some point to see if a prescription for a new type of steroid inhaler would be beneficial. 5. Leg swelling was the primary reason you came to the hospital. As we discussed, I think this is because of your liver failure. This will unfortunately not completely resolve unless your liver health improves. In the meantime, it can be managed by using compression stockings and using a diuretic. Keep an eye on the amount of leg swelling, and if it starts to get worse, you may need to follow-up with your primary care physician to see if medication adjustment is warranted. Also, because the colchicine may have played a role in worsening the leg swelling and redness, I am going to recommend you discontinue colchicine. No Smoking: If you smoke, Please STOP! Call for help.
--- NOTE | 2022-12-08 15:28 | DISCHARGE SUMMARY ---
Discharge Summary Admit Date: 12/04/22 Discharge Date: 12/08/22 Discharging Provider: Dr Mk Summers Code Status: Attempt Resuscitation Condition at Discharge: Stable Discharge Disposition: 01 Home, Self Care - DIAGNOSES Admission Diagnoses: Abnormal LFTs Edema of both lower legs Hyponatremia Alcohol abuse - HPI History of Present Illness: 67 yr woman with multiple medical problems as described comes in with complaints of worsening leg edema, patient had PNA in last week of Aug, also had pericardial effusion was on colchicine, also has swelling in past but they disappeared, does admit to drinking EOTH daily 4-5 glasses of wine, no hx of falls, no fever,no chills, no hx of thyroid disease no hx of cortisol def, no neuro complaints, clincally feels ok except for feeling tired, saw her primary cards last friday was told echo looks good, pericardial effusion resolved, Patient NA in er is 116, no other complaints, would repeat NA and would admit to telemetry for close monitoring based on my discussion with ER MD. 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 She also had significantly elevated LFTs suggestive of liver disease but did not have any obvious sequela of this other than the fluid redistribution in the lower legs. She denied any abdominal pain. She did not have any nausea or vomiting. Her hyponatremia initially was addressed by a small bolus of hypertonic saline then free water restriction In an attempt to avoid worsening lower extremity edema with continuous normal saline.however this was insufficient to correct her hyponatremia. At this point the patient was started on normal saline infusion and serial sodium levels were drawn every 4 hours. Her sodium started to correct into the low 120 range. This improvement continued until discharge at which point her sodium level was greater than 130. The patient was counseled extensively on the concerns for the current state of her liver given the abnormally elevated LFTs, bilirubin in the range of 3-4, and the previous CT scan showing fatty liver. This was most remarkable given the history of her significant alcohol consumption. She was counseled that she must absolutely not have any more alcohol for the rest of her life. She was counseled that she may ultimately require a liver transplant if this does not improve. The patient voiced understanding and appeared to be agreeable to complete alcohol cessation. Her was with her and was very supportive and reported to have eliminated all alcohol from the house prior to her return home. In addition, despite a history of hypertension, the patient's blood pressure was relatively low for the first 2 days of hospitalization. Her home blood pressure medications were held. Gradually, her blood pressure started to increase slowly. Her blood pressure medication regimen from home was reviewed and it turns out she was on metoprolol 100 mg in the morning and 50 mg at night. This was apparently recently started by her microwave remote sensing scientist. However, with respect to her blood pressure readings while in the hospital, they did not support such an aggressive regimen. (In addition, she stated her recent echocardiogram a few weeks ago showed no evidence of CHF). So she was started on metoprolol 50 mg at night only and the following day her blood pressures were in target range with systolics in the 130s. Heart rates were also well controlled. Given her concern for the lower extremity edema, she was then started on spironolactone on the day prior to discharge to help with diuresis of the lower extremities now that her blood pressure can tolerate it. By the following day, her blood pressure was in the low 100 range but otherwise she was tolerating the medication well and she was sent home with a prescription for spironolactone 25 mg daily to be further reviewed by her PCP. In addition, she was advised to not continue metoprolol 100 mg in the morning and to use only the 50 mg at night as the combination of the 2 tabs of was likely drop her blood pressure too low. She also complains of a chronic nasal congestion and cough. She complained of intermittent wheezing that was not resolved by her current inhaler fluticasone. She does have albuterol inhaler at home as well. She did not have any significant asthma symptoms during hospitalization, but she was advised that she may want to consider discussing with her PCP a more potent inhaled corticosteroid as fluticasone does have alternative options with higher potency. Overall, the patient was pleased with her progress. Her lower extremity edema had improved, in particular after demonstrating Ramon wraps and compression stockings, and her sodium level was close to baseline in the 130s. She was discharged home with recommendations to follow-up with PCP, and consider re ferral to hepatology for the chronic liver disease. - ALLERGIES Allergies/Adverse Reactions: Allergies Allergy/AdvReac Type Severity Reaction Status Date / Time Sulfa (Sulfonamide Allergy Unknown Verified 09/21/22 09:08 Antibiotics) - MEDICATIONS Home Medications: Ambulatory Orders Medication Instructions Recorded Confirmed Albuterol Sulf [Ventolin Hfa 2 puffs INH Q4H PRN 12/05/22 12/05/22 Inhaler] Alendronate [Fosamax] 70 mg PO Q7D 12/05/22 12/05/22 Escitalopram Oxalate [Lexapro] 5 mg PO DAILY 12/05/22 12/05/22 Fluticasone Propion/Salmeterol 1 puffs INH BID 12/05/22 12/05/22 [Fluticasone-Salmeterol 250-50] Pantoprazole [Protonix] 40 mg PO QDAC 12/05/22 12/05/22 hydrOXYzine HCL [Hydroxyzine HCl] 25 mg PO QPM 12/05/22 12/05/22 Calcium Citrate 250 mg PO BID #60 tab 12/08/22 Metoprolol Succinate [Toprol Xl] 50 mg PO QPM tab 12/08/22 Spironolactone [Aldactone] 25 mg PO DAILY #30 tab 12/08/22 Thiamine [Vitamin B-1] 100 mg PO DAILY #100 tab 12/08/22 - PHYSICAL EXAM AT DISCHARGE General Appearance: positive: No acute distress Respiratory: positive: Chest non-tender, No respiratory distress Cardiovascular: positive: Regular rate & rhythm, No murmur Abdomen: positive: Non-tender, No organomegaly, Nml bowel sounds, No distention Extremities: positive: Pedal edema (Bilateral lower extremity edema, 3+ pitting to the knees) Neurologic/Psychiatric: positive: Oriented x3, CN's nml (2-12), Motor nml - LABS Result Diagrams: 12/08/22 05:11 12/08/22 05:11 - SEPSIS Current Stage of Sepsis: Ruled out
[2022-12-09 17:09] LABS: OSMOLALITY 244 mOsmol/kg (280-301)
[2022-12-11 13:10] LABS: OSMOLALITY URINE 165 mOsmol/kg (.)
== END 2022-12-08 12:10 | disposition home or self-care (01) | DRG 641 ==
LOC: ED 19:17 → ICU 21:28 → MS2 12-06 17:00
PROVIDERS: ADMIT Internal Medicine; ATTEND Family Medicine Sports Medicine
DX: E87.1 Hypo-osmolality and hyponatremia (principal); R60.0 Localized edema; R79.89 Other specified abnormal findings of blood chemistry; K76.9 Liver disease, unspecified; I10 Essential (primary) hypertension; Z87.891 Personal history of nicotine dependence; R09.81 Nasal congestion; R05.9 Cough, unspecified; F10.10 Alcohol abuse, uncomplicated; Z87.01 Personal history of pneumonia (recurrent); M10.9 Gout, unspecified; R53.1 Weakness; K70.10 Alcoholic hepatitis without ascites; E78.00 Pure hypercholesterolemia, unspecified; K72.90 Hepatic failure, unspecified without coma
CPT/HCPCS: 36415; 80048; 80053; 80061; 80076; 82140; 82530; 83735; 83880; 83930; 83935; 84100; 84300; 84443; 84484; 85025; 85027; 85610; 87150; 93005; 93306; 94640; 99285; A9270; G0480; 80320; 83721

== ENCOUNTER 2023-12-17 08:00 | Outpatient (CLI) | payer MEDICARE, OTHER ==
--- NOTE | 2023-12-17 17:01 | XRAY Report ---
PROCEDURE: Chest 2V INDICATIONS: BRONCHITIS, ACUTE WITH BRONCHOSPASM TECHNIQUE: 2 views of the chest were acquired. COMPARISON: 09/21/2022 FINDINGS: Surgical changes and devices: None. Lungs and pleura: Low lung volumes. No dense consolidation or pleural effusion. Possible mild peribr onchial thickening Mediastinum: Normal heart size Bones and chest wall: Age-indeterminate lower thoracic vertebral body height loss, seen in 2022. IMPRESSION: Low lung volumes. No acute radiographic abnormality. Possible mild peribronchial thickening compatibl e with reported bronchitis. Reviewed by: Derrick Bright MD on 12/17/2023 5:00 PM PDT Approved by: Derrick Bright MD on 12/17/2023 5:00 PM PDT Station ID: [id number]
== END 2023-12-17 23:59 | disposition home or self-care (01) ==
LOC: DI.S 08:00
PROVIDERS: ATTEND Emergency Medicine
DX: J20.9 Acute bronchitis, unspecified (principal)

== ENCOUNTER 2024-02-18 14:03 | Outpatient (CLI) | payer MEDICARE ==
--- NOTE | 2024-02-19 08:41 | Mammography Report ---
BILATERAL DIGITAL SCREENING MAMMOGRAM 3D/2D: 02/18/2024 CLINICAL: Routine screening. Comparison is made to exams dated: 07/22/2022 mammogram, 02/08/2019 mammogram, 10/23/2017 mammogram, an d 06/26/2016 mammogram - [facility]. There are scattered areas of fibroglandular density in both breasts (category b / 25%-50% glandular t issue). No significant masses, calcifications, or other findings are seen in either breast. There has been no significant interval change. IMPRESSION: NEGATIVE There is no mammographic evidence of malignancy. A 1 year screening mammogram is recommended. Based on the Tyrer Cuzick model (a risk assessment model) the patient's lifetime risk is 4.0% and her 10 year risk is 2.0%. According to the ACR, ACS, and NCCN guidelines, an annual breast MRI exam geraldo g with mammogram is recommended if the patient's lifetime risk is 20% or greater. This exam was interpreted at Station ID: [id number]. NOTE: For mammograms, a report in lay terms will be sent to the patient. Approximately 15% of breast malignancies will not be visualized mammographically. In the management of a palpable breast mass, a negative mammogram must not discourage biopsy of a clinically suspicious lesion. Electronically Signed By: Derrick hunter/kwadwo:02/18/2024 15:34:26 letter sent: No_Letter ACR BI-RADS Category 1: Negative [id number] PARENCHYMAL PATTERN: (A) - The breast(s) demonstrate(s) scattered fibroglandular densities. BI-RADS CATEGORY: (1) - 1 RECOMMENDATION: (ANNUAL) - Recommend routine annual screening mammography. [id number] 1 year screening LATERALITY: (B)
== END 2024-02-18 14:04 | disposition home or self-care (01) ==
LOC: DI.S 14:03
DX: Z12.31 Encounter for screening mammogram for malignant neoplasm of breast (principal); R92.323 Mammographic fibroglandular density, bilateral breasts

== ENCOUNTER 2024-05-06 07:03 | Outpatient (CLI) | payer MEDICARE ==
--- NOTE | 2024-05-06 08:00 | Ultrasound Report ---
PROCEDURE: Duplex Ext Veins Left INDICATIONS: L LEG SWELLING TECHNIQUE: Real-time imaging, as well as color and pulse Doppler interrogation, were performed of the lower extr emity deep veins from the inguinal ligament to the popliteal fossa. Attempted visualization of the ca lf veins was performed. COMPARISON: None. FINDINGS: The deep veins are normally compressible, and free of intraluminal thrombus. Color and pu lse Doppler demonstrate normal phasic intraluminal flow. There is normal augmentation response to di stal compression maneuver. IMPRESSION: No deep venous thrombosis of the left lower extremity. Reviewed by: Tommy Vicente MD on 05/06/2024 7:59 AM PDT Approved by: Tommy Vicente MD on 05/06/2024 7:59 AM PDT Station ID: [id number]
== END 2024-05-06 07:04 | disposition home or self-care (01) ==
LOC: DI 07:03
PROVIDERS: ATTEND Orthopaedic Surgery
DX: M79.89 Other specified soft tissue disorders (principal)